=== PATIENT | female | born 1960 | race Caucasian/White ===

== ENCOUNTER → 2020-02-13 14:33 | Outpatient (CLI) | payer BC, SELFPAY ==
--- NOTE | 2020-02-13 14:49 | XR_ITS ---
PROCEDURE: XR HIP LT 2-3V W/PELVIS CLINICAL INDICATION: LT HIP PAIN COMPARISON: No exams were available for comparison FINDINGS: No fracture or dislocation. No lytic or blastic change. The left hip has an unremarkable appearance. No significant arthritic change. There are mild osteoarthritic changes the SI joint on the left. There is some increased density in the super acetabular region involving the left ilium medially raising the question of an area of sclerosis. IMPRESSION: 1. Unremarkable left hip. 2. Possible blastic area involving the lower aspect of the ilium medially on the left. CT may confirm. 3. Mild osteoarthritic change of the left SI joint Dictated by: Simba Matt MD 02/13/2020 15:41 Simba Matt MD in [place] 02/13/2020 15:41
--- NOTE | 2020-02-13 14:49 | XR_ITS ---
PROCEDURE: XR LUMBAR SPINE MIN 4V CLINICAL INDICATION: LOW BACK PAIN COMPARISON: No exams were available for comparison FINDINGS: No fracture or dislocation. No lytic or blastic change. There is normal mineralization. There is normal alignment. The disc spaces are well preserved. There are mild osteoarthritic changes of the SI joints inferiorly. There is acute angulation of the lower sacrum suggesting an old injury. Subcutaneous calcifications are present in the gluteal region consistent with injection granulomas. There is a moderate amount of retained colonic feces. Other findings:None. IMPRESSION: 1. No acute finding of the lumbar spine. 2. Osteoarthritic changes of the SI joints. 3. Acute angulation of the lower sacrum suggesting an old injury Dictated by: Simba Matt MD 02/13/2020 15:38 Simba Matt MD in [place] 02/13/2020 15:38
== END ==
PROVIDERS: PCP Nurse Practitioner Family; Visit Provider Nurse Practitioner Family
DX: M25.552 Pain in left hip (principal); M54.42 Lumbago with sciatica, left side
CPT/HCPCS: 72110; 73502

== ENCOUNTER → 2020-03-11 13:08 | Outpatient (CLI) | payer BC, SELFPAY ==
--- NOTE | 2020-03-11 13:17 | CT_ITS ---
PROCEDURE: CT HIP LT WO CON CLINICAL HISTORY: ABN X-RAY, L HIP PAIN fell 3 weeks ago abn x-ray COMPARISON: CR XR HIP LT 2-3V W/PELVIS from 02/13/2020 TECHNIQUE: Axial images obtained with sagittal and coronal reformats. All CT scans at the facility use one or more dose reduction, viz: automated exposure control, ma/kV adjustment per patient size (including targeted exams where dose is matched to indication, i.e. head), or iterative reconstruction technique. FINDINGS: There is a well-circumscribed area of sclerosis involving the inferior aspect of the ilium on the left in the super acetabular region. This measures 11 mm and is well-circumscribed. This may represent a bone island. The margins are more distinct on the CT scan than on the radiograph. There are mild osteoarthritic changes of the left hip. No acute fracture or dislocation. No lytic lesions are evident. There is generalized vascular calcification. No obvious soft tissue mass. IMPRESSION: Well-circumscribed sclerotic lesion of the left ilium in the super acetabular region which may represent a bone island. Short-term follow-up in 3-6 months may confirm stability in this patient with left hip pain. Mild osteoarthritis of the left hip Dictated by: Simba Matt MD 03/13/2020 10:24 Simba Matt MD in [place] 03/13/2020 10:24
== END ==
PROVIDERS: PCP Nurse Practitioner Family; Visit Provider Nurse Practitioner Family
DX: R93.89 Abnormal findings on diagnostic imaging of other specified body structures (principal); M25.552 Pain in left hip
CPT/HCPCS: 73700

== ENCOUNTER → 2020-05-28 12:47 | Outpatient (CLI) | payer BC, SELFPAY ==
--- NOTE | 2020-05-28 12:51 | MR_ITS ---
PROCEDURE: MR HIP LT WO CON CLINICAL INDICATION: LEFT HIP PAIN, BACK PAIN Prior injury with pain COMPARISON: CT CT HIP LT WO CON from 03/11/2020 TECHNIQUE: Routine multiplanar multi echo sequences are performed without gadolinium enhancement. FINDINGS: No fracture or dislocation. No evidence of avascular necrosis. There is a small left-sided hip joint effusion.. No significant effusion. There is a small area of slight decreased T1 and increased T2 signal involving the proximal femur just inferior to the greater trochanter. This measures approximately 11 mm and is of uncertain clinical significance. No radiographic correlate apparent. Follow-up is suggested to confirm stability. IMPRESSION: Trace left hip joint effusion. No evidence of fracture or avascular necrosis. Nonspecific 11 mm oval area decreased T1 and increased T2 signal of the left femur proximally of questionable clinical significance. Three to six-month follow-up suggested to confirm stability. Dictated by: Simba Matt MD 07/05/2020 10:09 Simba Matt MD in [place] 07/05/2020 10:09
--- NOTE | 2020-05-28 12:51 | MR_ITS ---
PROCEDURE: MR LUMBAR SPINE WO CON CLINICAL INDICATION: LEFT HIP PAIN, BACK PAIN Low back pain radiating into the left leg COMPARISON: CR XR LUMBAR SPINE MIN 4V from 02/13/2020 TECHNIQUE: Standard multiplanar multiecho sequences are performed without contrast. 3-D MIP and myelographic images are also rendered and reviewed FINDINGS: Normal alignment. L1-L2: Type 2 endplate changes. L2-L3: Unremarkable. L3-L4: Unremarkable. L4-5: There is minimal central disc protrusion with mild facet and ligamentum hypertrophy with mild bilateral lateral recess narrowing slightly greater on the right and mild bilateral foraminal narrowing. L5-S1: There is a small central disc protrusion causing mild bilateral lateral recess narrowing abutting the anteromedial aspect of both S1 nerve roots No extruded herniated disc evident. IMPRESSION: 1. L4-5: There is minimal central disc protrusion with mild facet and ligamentum hypertrophy with mild bilateral lateral recess narrowing slightly greater on the right and mild bilateral foraminal narrowing. 2. L5-S1: There is a small central disc protrusion causing mild bilateral lateral recess narrowing abutting the anteromedial aspect of both S1 nerve roots 3. No extruded herniated disc evident. Dictated by: Simba Matt MD 05/29/2020 13:04 Simba Matt MD in [place] 05/29/2020 13:04
== END ==
PROVIDERS: PCP Nurse Practitioner Family; Visit Provider Nurse Practitioner Family
DX: M25.552 Pain in left hip (principal); M54.42 Lumbago with sciatica, left side; R93.89 Abnormal findings on diagnostic imaging of other specified body structures
CPT/HCPCS: 72148; 73721; 76376

== ENCOUNTER 2022-03-12 11:45 | Inpatient (IN) | payer OTHER, SELFPAY ==
[2022-03-12] VITALS (9 sets, daily range): BP systolic 110–154; BP diastolic 59–97; PULSE 74–87; RESP 16–21; TEMP 36.4–36.8; O2SAT 97–99; BMI 27.8; BMI 29.2; BMI 22.6
--- NOTE | 2022-03-12 12:18 | EXP.UTC ---
Discharge Plan Prescriptions Prescriptions: No Action paroxetine HCl [Paxil] 40 mg tablet 40 mg PO DAILY Qty: 30 1RF trazodone 50 mg tablet See Rx Instructions PO QHS PRN (Reason: sleep) Qty: 30 0RF Rx Instructions: take 1/2 to 1 tablet PO every day at bedtime PRN; Referrals Follow up/Referrals: Abdi Kapoor MD [Primary Care Provider] - See instructions Clinical Impressions Clinical Impression: Diabetic ulcer of foot associated with type 2 diabetes mellitus, with necrosis of muscle Discharge ED Provider: Raghav Ko [facility] General Stated complaint: right foot infected, no accident Time Seen by Provider: 03/12/22 12:16 History of Present Illness Provider Complaint: She states that for over the past couple of months she has had worsening sores on her right foot. She is a diabetic. She states that this began while in [place]. She was prescribed an antifungal cream there that did not help. On her way back to [place] she was seen in [place] by a provider and started on clindamycin. She states that she has been taking that for the past 3 days but it is not helping her sores or redness of her foot. Related Data Previous Rx's Medication Instructions Recorded paroxetine HCl 40 mg tablet (Paxil) 40 mg PO DAILY #30 tabs 09/01/20 trazodone 50 mg tablet See Rx Instructions PO QHS PRN 09/01/20 sleep #30 tabs Allergies Allergy/AdvReac Type Severity Reaction Status Date / Time Sulfa (Sulfonamide Allergy Severe rash; Verified 04/13/20 13:35 Antibiotics) itchy; trouble breathing [facility] Medical History Anxiety Diabetes mellitus, type 2 Hypertension Surgical History History of cholecystectomy Social History Smoking Status: Current every day smoker alcohol intake: never substance use type: denies use current occupational status: employed Travel in the last 8 weeks: Outside the [facility] number of children: 2 ROS Obtained: Yes All systems reviewed & no additional complaints except as documented Constitutional Constitutional: Reports system reviewed and no additional complaints, except as documented, Denies chills and Denies fever(s) Eyes Eyes: Denies eye discharge ENT Ears, Nose, Mouth, and Throat: Denies dysphagia, Denies sore throat and Denies throat swelling Cardiovascular Cardiovascular: Denies chest pain and Denies dyspnea Respiratory Respiratory: Denies chest congestion, Denies cough and Denies dyspnea Gastrointestinal Gastrointestingal: Denies abdominal pain, constipation, diarrhea, dysphagia, nausea or vomiting Musculoskeletal Musculoskeletal: Denies arthralgias Integumentary/Breasts Skin/Breast: Reports as per HPI Neurologic Neurologic: Denies paresthesias Allergic/Immunologic Allergic/Immunologic: Denies throat swelling Physical Exam General General appearance: alert and in no apparent distress Head Head exam: atraumatic, normocephalic and normal inspection Eye Eye exam: Present normal appearance, PERRL and EOMI ENT ENT exam: Present normal exam, normal oropharynx, mucous membranes moist, TM's normal bilaterally and normal external ear exam Neck Neck exam: Present normal inspection, full ROM and trachea midline; Absent meningismus or lymphadenopathy Chest Chest inspection: Present normal inspection and symmetric chest wall rise; Absent tenderness Respiratory Respiratory exam: Present normal lung sounds bilaterally; Absent respiratory distress Cardiovascular Cardiovascular exam: Present regular rate and normal rhythm; Absent JVD Abdominal Exam Abdominal exam: Present soft and normal bowel sounds; Absent distention, tenderness or guarding Extremities Exam Extremities exam: Present normal inspection, full ROM and normal capillary refill; Absent calf tenderness Back Exam Back exam: Pres
--- NOTE | 2022-03-12 12:39 | XR_ITS ---
PROCEDURE INFORMATION: Exam: XR Right Foot Exam date and time: 03/12/2022 12:41 PM Age: 61 years old Clinical indication: Pain; Foot; Right; Additional info: Multiple deep foot ulcers, diabetic TECHNIQUE: Imaging protocol: Radiologic exam of the Right foot. Views: 3 or more views. COMPARISON: No relevant prior studies available. FINDINGS: Bones/joints: Generalized osteopenia. Soft tissues: Mild diffuse soft tissue swelling. Vasculature: Atherosclerotic vascular disease. IMPRESSION: No evidence to suggest osteomyelitis or acute osseous abnormality.
--- NOTE | 2022-03-12 13:53 | HMH.EDGENADL ---
Discharge Plan Disposition Patient Disposition: Admitted As Inpatient Condition: Fair Chief Complaint: Extremity Injury, Lower Prescriptions Prescriptions: No Action paroxetine HCl [Paxil] 40 mg tablet 40 mg PO DAILY Qty: 30 1RF trazodone 50 mg tablet See Rx Instructions PO QHS PRN (Reason: sleep) Qty: 30 0RF Rx Instructions: take 1/2 to 1 tablet PO every day at bedtime PRN; Referrals Follow up/Referrals: Abdi Kapoor MD [Primary Care Provider] - See instructions Clinical Impressions Clinical Impression: Diabetic ulcer of foot associated with type 2 diabetes mellitus, with necrosis of muscle, Gangrene of right foot Discharge ED Provider: Raghav Ko General Adult HPI General Chief complaint: Extremity Injury, Lower Stated complaint: right foot infected, no accident Time Seen by Provider: 03/12/22 13:40 Mode of Arrival: Ambulatory Limitations: No Limitations Description of Symptoms (Recalled from ER Triage Doc. by RN): pt sent from [facility] for eval due to several open necrotic areas to rt foot starting in june. pt is diabetic. states she was in [place] and used antifungal cream with no improvement. seen by provider in [place] and prescribed an antibiotic with no improvement. rt foot swollen, redness noted. pt denies any fever, chills, nausea, vomiting History of Present Illness HPI narrative: The patient is sent from the urgent treatment center. She is diabetic for 30 years. She began having sores on her right foot in June. She apparently was initially treated with fungal creams. Her did not become aware of any sores on her foot until November when they were in [place]. He first noticed a sore on the lateral aspect of her foot in the region of the fifth metatarsal head. She went to 3 different doctors while in [place] but continued to worsen each time. He eventually convinced her to come back to the [facility] for treatment. On the way back they stopped at an emergency department in [place]. states that the physician wanted to admit her to the hospital, but they declined, preferring instead to come back to [place]. She was started on clindamycin while in [place]. She denies fever. She does have pain in the foot, generally worse at night. She has never had previous diabetic foot ulcers. Related Data Previous Rx's Medication Instructions Recorded paroxetine HCl 40 mg tablet (Paxil) 40 mg PO DAILY #30 tabs 09/01/20 trazodone 50 mg tablet See Rx Instructions PO QHS PRN 09/01/20 sleep #30 tabs Allergies Allergy/AdvReac Type Severity Reaction Status Date / Time Sulfa (Sulfonamide Allergy Severe rash; Verified 04/13/20 13:35 Antibiotics) itchy; trouble breathing PFSH PFSH Medical History Anxiety Diabetes mellitus, type 2 Hypertension Surgical History History of cholecystectomy Social History (Updated 03/12/22 @ 13:27 by Eric Porter APRN) Smoking Status: Current every day smoker alcohol intake: never substance use type: denies use current occupational status: employed Travel in the last 8 weeks: Outside the [place] number of children: 2 ROS Obtained: Yes Systems reviewed as appropriate & no additional complaints except as documented Constitutional Constitutional: Denies fever(s) Gastrointestinal Gastrointestingal: Denies vomiting Musculoskeletal Musculoskeletal: Reports tingling Neurologic Neurologic: Reports tingling Physical Exam General General appearance: alert and in no apparent distress Head Head exam: atraumatic and normocephalic Eye Eye exam: Present normal appearance and EOMI ENT ENT exam: Present mucous membranes moist Neck Neck exam: Present normal inspection and trachea midline Chest Chest inspection: Present normal inspection and symmetric chest wall rise Respiratory Respiratory exam: Presen
--- NOTE | 2022-03-12 14:14 | EXP.PHA.CONS ---
Pharmacy Consult Date: 03/12/22 Time: 14:14 Referring provider: DR COSTA Reason for Consult:: VANCOMYCIN DOSING CONSULT Allergies Allergy/AdvReac Type Severity Reaction Status Date / Time Sulfa (Sulfonamide Allergy Severe rash; Verified 04/13/20 13:35 Antibiotics) itchy; trouble breathing Home Medications Medication Instructions Recorded Confirmed Type paroxetine HCl 40 mg tablet (Paxil) 40 mg PO DAILY #30 tabs 09/01/20 Rx trazodone 50 mg tablet See Rx Instructions PO QHS PRN 09/01/20 Rx sleep #30 tabs New Prescriptions to Start Prescriptions: Height: 1.57 m Weight: 72.575 kg Laboratory Results:: LABS PENDING Medical History: Medical History (Updated 03/12/22 @ 13:27 by Eric Porter APRN) Anxiety Diabetes mellitus, type 2 Hypertension Assessment and Plan Assessment and plan (1) Diabetic ulcer of foot associated with type 2 diabetes mellitus, with necrosis of muscle: Status: Acute Category: Medical Code(s): E11.621 - Type 2 diabetes mellitus with foot ulcer; L97.503 - Non-pressure chronic ulcer of other part of unspecified foot with necrosis of muscle Assessment and plan all Dx Assessment and Plan for all problems:: LOADING DOSE OF VANCOMYCIN = 15-20 MG/KG 15 MG/KG * 72.5 KG = 1087 MG 20 MG/KG * 72.5 KG = 1451 MG Recommendations: RECOMMEND GIVING VANCOMYCIN 1250 MG IV ONCE. FURTHER REGIMEN PENDING LABS.
[2022-03-12 14:41] LABS: Chloride 98 mmol/L (98-107); Potassium 3.9 mmoL/L (3.5-5.1); Sodium 136 mmol/L (136-145)
--- NOTE | 2022-03-12 14:43 | PC.NURSE ---
Dr addie olea
[2022-03-12 14:44] LABS: Anion Gap 17.9 mEq/L (5-15); Blood Urea Nitrogen 19 mg/dl (7-17); Carbon Dioxide 24 mmol/L (22.0-30.0); Creatinine Clearance Estimated 66 mL/min (50-200); Estimated Glomerular Filt Rate 63 ml/min (>60); GFR (African American) 77 ML/MIN (>60)
[2022-03-12 14:45] LABS: Calcium 8.5 mg/dl (8.4-10.2); Glucose 374 mg/dl (74-100)
[2022-03-12 14:46] LABS: Lactic Acid 1.7 mmol/L (0.7-2.1)
--- NOTE | 2022-03-12 14:47 | PC.NURSE ---
Obtained Covid nasal swab
[2022-03-12 14:48] LABS: Basophils # 0.1 K/mm3 (0-0.2); Basophils % 0.4 % (0.1-2.0); Eosinophils # 0.2 K/mm3 (0.0-0.4); Eosinophils % 1.3 % (0.1-12.0); Hematocrit 40.5 % (37.0-47.0); Hemoglobin 13.1 g/dL (12.2-16.2); Lymphocytes # 1.4 K/mm3 (0.7-4.5); Lymphocytes % 9.4 % (10-50); Mean Corpuscular HGB Conc 32.5 g/dL (31.8-35.4); Mean Corpuscular Hemoglobin 30.6 pg (27.0-31.2); Mean Corpuscular Volume 94.3 fl (81-99); Mean Platelet Volume 8.8 fl (7.4-10.4); Monocytes # 0.7 K/mm3 (0.1-1.0); Monocytes % 4.9 % (1.7-9.3); Neutrophils # 12.3 K/mm3 (1.8-7.8); Neutrophils % 84.1 % (37.0-80.0); Platelet Count 481 K/mm3 (142-424); Red Blood Count 4.29 M/mm3 (4.20-5.40); Red Cell Distribution Width 12.8 % (11.5-17.5); White Blood Count 14.6 K/mm3 (4.8-10.8)
--- NOTE | 2022-03-12 14:49 | PC.NURSE ---
Dr Ko speaking with Dr Hendrix
[2022-03-12 14:50] LABS: C-Reactive Protein 99.7 mg/L (0-4)
[2022-03-12 15:14] LABS: Erythrocyte Sedimentation Rate 51 mm/hr (0-30)
--- NOTE | 2022-03-12 15:23 | PC.NURSE ---
pt tolerated ambulating to restroom well and made it back to room
[2022-03-12 15:28] LABS: Coronavirus 19, PCR Not Detected (NotDetected); Influenza A, PCR Not Detected (NotDetected); Influenza B, PCR Not Detected (NotDetected)
--- NOTE | 2022-03-12 16:29 | PC.NURSE ---
report called to floor
--- NOTE | 2022-03-12 16:42 | PC.NURSE ---
pt arrived to the floor at this time
[2022-03-13] VITALS: BP 103/57; PULSE 84; RESP 16; TEMP 37.1; O2SAT 97
[2022-03-13 03:37] VITALS: BP 114/63; PULSE 78; RESP 18; TEMP 36.8; O2SAT 100
--- NOTE | 2022-03-13 04:12 | PC.NURSE ---
no acute distress noted, pt complains of pain to RLE that radiates up to thigh, neurontin, tramadol given po for pain rated 8/10 unrelieved by tylenol respiratory: lungs CTA bilaterally, 02 sats 97-100 on room air cardiac: 1-2+ edema noted to BLE, VSS GI/: wnl Neuro: alert and oriented x4 skin: gangrenous wound noted to RLE toes and right lateral side of foot; dressing in place, no drainage noted, RLE is red and painful to touch, + pedal pulse noted, + cap refill noted. fsbs 155, pt not on insulin at home, states only takes metformin
[2022-03-13 05:00] VITALS: BMI 21.6
[2022-03-13 06:23] LABS: POC Glucose,Bedside 419 (70-110)
--- NOTE | 2022-03-13 07:09 | EXP.PHA.VTE ---
[facility] Pharmacy VTE Monitoring Patient Demographics Admission date: 03/12/22 Report Date: 03/13/22 Time: 07:10 Patient Allergies Sulfa (Sulfonamide Antibiotics) Allergy (Severe, Verified 04/13/20 13:35) rash; itchy; trouble breathing Height: 1.63 m Weight: 57.351 kg Current Active Problems (Updated 03/12/22 @ 15:01 by Raghav Ko MD) Gangrene of right foot (Acute) Diabetic ulcer of foot associated with type 2 diabetes mellitus, with necrosis of muscle (Acute) VTE Risk Labs: VTE Related Lab Results Hgb 13.1 g/dL (12.2-16.2) 03/12/22 14:20 Hct 40.5 % (37.0-47.0) 03/12/22 14:20 Plt Count 481 K/mm3 (142-424) H 03/12/22 14:20 BUN 19 mg/dl (7-17) H 03/12/22 14:20 Creatinine 0.90 mg/dl (0.52-1.04) 03/12/22 14:20 Estimated Creat Clear 66 mL/min (50-200) 03/12/22 14:20 VTE Score: 1 Prophylaxis VTE Prophylaxis Ordered?: Yes Types of VTE Prophylaxis: TEDS Knee High Location of Applied Device: Bilateral Lower Extremeties
--- NOTE | 2022-03-13 07:47 | EXP.PHA.CONS ---
Pharmacy Consult Date: 03/13/22 Time: 07:47 Referring provider: DR. KELLEY Reason for Consult:: VANCOMYCIN Allergies Allergy/AdvReac Type Severity Reaction Status Date / Time Sulfa (Sulfonamide Allergy Severe rash; Verified 04/13/20 13:35 Antibiotics) itchy; trouble breathing Home Medications Medication Instructions Recorded Confirmed Type atorvastatin 20 mg tablet 20 mg PO HS Cholesterol 03/12/22 03/12/22 History clindamycin HCl 300 mg capsule 300 mg PO TID Infection 03/12/22 03/12/22 History metformin 500 mg tablet 1,000 mg PO BID Diabetes 03/12/22 03/12/22 History paroxetine HCl 40 mg tablet (Paxil) 40 mg PO DAILY Depression 03/12/22 03/12/22 History New Prescriptions to Start Prescriptions: Height: 1.63 m Weight: 57.351 kg Laboratory Results:: Laboratory Results - last 24 hr 03/12/22 14:20: WBC 14.6 H, RBC 4.29, Hgb 13.1, Hct 40.5, MCV 94.3, MCH 30.6, MCHC 32.5, RDW 12.8, Plt Count 481 H, MPV 8.8, Neut % (Auto) 84.1 H, Lymph % (Auto) 9.4 L, [place] % (Auto) 4.9, Eos % (Auto) 1.3, Baso % (Auto) 0.4, Neut # (Auto) 12.3 H, Lymph # (Auto) 1.4, [place] # (Auto) 0.7, Eos # (Auto) 0.2, Baso # (Auto) 0.1, ESR 51 H 03/12/22 14:20: C-Reactive Protein 99.7 H 03/12/22 14:20: Sodium 136, Potassium 3.9, Chloride 98, Carbon Dioxide 24, Anion Gap 17.9 H, BUN 19 H, Creatinine 0.90, Estimated Creat Clear 66, Estimated GFR 63, Est GFR ( Amer) 77, Glucose 374 H, Calcium 8.5 03/12/22 14:20: Lactate 1.7 03/12/22 14:46: SARS-CoV-2 (PCR) Not detected, Influenza A Untype (PCR) Not detected, Influenza Type B (PCR) Not detected 03/12/22 17:12: POC Glucose 419 H* Medical History: Medical History (Updated 03/12/22 @ 15:01 by Raghav Ko MD) Anxiety Diabetes mellitus, type 2 Hypertension Assessment and Plan Assessment and plan all Dx Assessment and Plan for all problems:: Objective: Patient: Floor: Age: 61 yo Serum creatinine: 0.9 mg/dL Height: 64.2 Inches Weight (kg): 54.4 Assessment: IBW (kg): 55.16 Dosing wt(kg): 54.4 Estimated Creatinine clearance (ml/min): 54.9 CRCL method: Cockcroft and Gault using ibw(default). Drug selected: Vancomycin Loading dose (mg): 0 Vd (liters): 43.5 (factor used: 0.8 L/kg) Shaun (hr-1): 0.050 Half life (hrs): 13.86 Recommended dose: 1250 mg Interval: 24 hrs Infusion time (hrs): 2.0 Predicted peak (mcg/mL): 39.1 Predicted trough (mcg/mL): 13.02 Total body weight is being used for vancomycin dosing. Recommendations: Give Vancomycin 1250 mg q 24 hrs with an expected Cpeak of 39.1 mcg/ml and an expected Ctrough of 13.02 mcg/ml. ----Vanco only - ignore for aminoglycosides----- CLvanco= 2.18 L/hr AUC 0-24 /DERICK Data: DERICK 0.5 mcg/mL: AUC/DERICK: 1146.8 DERICK 1.0 mcg/mL: AUC/DERICK: 573.4 --------- DERICK 1.5 mcg/mL: AUC/DERICK: 382.3 DERICK 2.0 mcg/mL: AUC/DERICK: 286.7
--- NOTE | 2022-03-13 07:50 | HMH.PHAINT1 ---
Pharmacy Intervention Comments: Home medication reconciliation was completed using outpatient pharmacy list and interview with patient.
[2022-03-13 08:00] VITALS: BP 110/57; PULSE 73; RESP 18; TEMP 36.6; O2SAT 94
--- NOTE | 2022-03-13 08:23 | US_ITS ---
FINAL REPORT CLINICAL HISTORY: non-healing diabetic foot ulcers, Smoker, discolored Right great toe, Cold right leg. FINDINGS: ANKLE-BRACHIAL PRESSURE INDICES Pressure indices are as follows: RIGHT LOWER EXTREMITY: Ankle-brachial pressure index: 0.7 LEFT LOWER EXTREMITY: Ankle-brachial pressure index: n/a, noncompressible medial calcinosis. Left TPI:0.49 IMPRESSION: Findings suspicious of advanced infrapopliteal disease on the left at advanced, diffuse peripheral vascular disease on the right. Reviewed, Interpreted and Dictated by River Flores MD Transcribed by Love Mathew Authenticated and [facility]
--- NOTE | 2022-03-13 08:28 | EXP.HP ---
History of Present Illness *Admission Date: 03/12/22 *Reason for visit:: Right foot pain and wound *History of present illness: Ms. Puri is a 61-year-old female patient with a history of type II diabetes mellitus on insulin, hypertension, and chronic right foot wounds who presented to [facility] emergency room for treatment with increasing pain in the right foot. Following is documentation from the ER: She is diabetic for 30 years.? She began having sores on her right foot in June.? She apparently was initially treated with fungal creams.? Her did not become aware of any sores on her foot until November when they were in [place].? He first noticed a sore on the lateral aspect of her foot in the region of the fifth metatarsal head.? She went to 3 different doctors while in [place] but continued to worsen each time.? He eventually convinced her to come back to the [facility] for treatment.? On the way back they stopped at an emergency department in [place].? states that the physician wanted to admit her to the hospital, but they declined, preferring instead to come back to [place].? She was started on clindamycin while in [place].? She denies fever.? She does have pain in the foot, generally worse at night.? She has never had previous diabetic foot ulcers. With exam in the emergency room temp was 98.2. White blood cell count was elevated at 14,600. C-reactive protein was elevated at 99.7. Blood sugar was 374. She was started on vancomycin and cefepime. She also received a dose of piperacillin. She was then admitted for further evaluation and treatment. This a.m. patient was sleeping soundly and upon awakening states she had severe pain in her right foot. She was able to walk on it to obtain list of medicines. She speaks in a broken Paragu[place] which makes it difficult to totally understand her. No family is at bedside. She states the wound has been there since June and started out as a fungus. [facility] Medical History Anxiety Diabetes mellitus, type 2 Hypertension Surgical History History of cholecystectomy Family History Diabetes Family history of hypertension Family history of hyperlipidemia Social History (Updated 03/12/22 @ 17:05 by Lopez Boogie RN) Smoking Status: Current every day smoker alcohol intake: never substance use type: denies use current occupational status: employed Travel in the last 8 weeks: Outside the continental [facility] number of children: 2 Review of Systems Constitutional Constitutional: Denies anorexia Eyes Eyes: Denies change in vision ENT Ears, Nose, Mouth, and Throat: Denies otalgia and Denies sore throat *Cardiovascular Cardiovascular: Denies chest pain and Denies dyspnea *Respiratory Respiratory: Denies cough and Denies dyspnea *Gastrointestinal Gastrointestinal: Denies abdominal pain, Denies heartburn, Denies nausea and Denies vomiting *Genitourinary Genitourinary: Denies difficulty voiding *Musculoskeletal Musculoskeletal: Reports abnormal gait (Due to pain in the right foot), Reports arthralgias (Right foot), Reports limited range of motion (Right foot) and Reports tingling Integumentary/Breasts Skin/Breast: Reports nail changes (All nails right foot), Reports lesions (black lesions on toes and outer right foot) and Reports wounds (Right foot) *Neurologic Neurologic: Reports abnormal gait (Due to pain in the right foot), Denies paresthesias and Reports tingling Meds Home Medications and Allergies Home Medications Medication Instructions Recorded Confirmed Type atorvastatin 20 mg tablet 20 mg PO HS Cholesterol 03/12/22 03/12/22 History clindamycin HCl 300 mg capsule 300 mg PO TID Infection 03/12/22 03/12/22 History metformin 500 mg tablet 1,000 mg PO BID Diabetes 03/12/22 03/12/22 History paroxe
--- NOTE | 2022-03-13 08:38 | CT_ITS ---
FINAL REPORT CLINICAL HISTORY: rigth foot non-healing diabetic ulcers, r/o osteo FINDINGS: CT RIGHT FOOT WITHOUT CONTRAST Axial CT images were performed through the right foot without contrast. Coronal and sagittal reformatted images were submitted. This study was performed with techniques to keep radiation doses as low as reasonably achievable (ALARA). Individualized dose reduction techniques using automated exposure control or adjustment of mA and/or kV according to the patient's size were employed. FINDINGS: There is no acute fracture. There is no dislocation. The joint spaces are preserved. There is no evidence of bony destruction. No gas is seen in the soft tissues. No obvious abscess. IMPRESSION: No acute process. Reviewed, Interpreted and Dictated by River Flores MD Transcribed by Love Mathew Authenticated and [facility]
[2022-03-13 11:46] LABS: POC Glucose,Bedside 202 (70-110)
--- NOTE | 2022-03-13 11:54 | EXP.ORTH.CON ---
Documented by User: Catina Grande APRN 03/13/22 13:11 History of Present Illness *Admission Date: 03/12/22 *Reason for visit:: Right foot pain and wounds *History of present illness: Ms. Puri is a 61-year-old diabetic female who presented to [facility] emergency room for treatment with increasing pain toWe will the right foot and diabetic foot ulcers. PCP consulted podiatry for right foot pain and wound care. Patient is resting in bed alert and oriented. No acute distress noted. Right foot with several wounds noted. Patient has pain 10/10 with palpation of both feet. The left foot skin is dry with no open wounds noted. Pedal pulses weakly palpable. We will Review right foot x-ray, order CHAYO and right foot CT and treat accordingly. Ok for patient to have diabetic diet today. We will keep NPO after midnight. [facility] Medical History Anxiety Diabetes mellitus, type 2 Hypertension Surgical History History of cholecystectomy Family History Diabetes Family history of hypertension Family history of hyperlipidemia Social History (Updated 03/12/22 @ 17:05 by Lopez Boogie RN) Smoking Status: Current every day smoker alcohol intake: never substance use type: denies use current occupational status: employed Travel in the last 8 weeks: Outside the continental [facility] number of children: 2 Review of Systems *Musculoskeletal Musculoskeletal: Reports abnormal gait (Due to pain in the right foot) and Reports tingling *Neurologic Neurologic: Reports abnormal gait (Due to pain in the right foot), Denies paresthesias and Reports tingling Meds Home Medications and Allergies Home Medications Medication Instructions Recorded Confirmed Type atorvastatin 20 mg tablet 20 mg PO HS Cholesterol 03/12/22 03/12/22 History clindamycin HCl 300 mg capsule 300 mg PO TID Infection 03/12/22 03/12/22 History metformin 500 mg tablet 1,000 mg PO BID Diabetes 03/12/22 03/12/22 History paroxetine HCl 40 mg tablet (Paxil) 40 mg PO DAILY Depression 03/12/22 03/12/22 History New Prescriptions to Start Prescriptions: Allergies Allergy/AdvReac Type Severity Reaction Status Date / Time Sulfa (Sulfonamide Allergy Severe rash; Verified 04/13/20 13:35 Antibiotics) itchy; trouble breathing Ortho Exam (Inpt) Vital signs and Labs for Last 24 Hours: Temp Pulse Resp BP Pulse Ox 97.8 F 73 18 110/57 L 94 L 03/13/22 08:00 03/13/22 08:00 03/13/22 08:00 03/13/22 08:00 03/13/22 08:00 Laboratory Results - last 24 hr 03/12/22 14:20: WBC 14.6 H, RBC 4.29, Hgb 13.1, Hct 40.5, MCV 94.3, MCH 30.6, MCHC 32.5, RDW 12.8, Plt Count 481 H, MPV 8.8, Neut % (Auto) 84.1 H, Lymph % (Auto) 9.4 L, Richardson % (Auto) 4.9, Eos % (Auto) 1.3, Baso % (Auto) 0.4, Neut # (Auto) 12.3 H, Lymph # (Auto) 1.4, Richardson # (Auto) 0.7, Eos # (Auto) 0.2, Baso # (Auto) 0.1, ESR 51 H 03/12/22 14:20: C-Reactive Protein 99.7 H 03/12/22 14:20: Sodium 136, Potassium 3.9, Chloride 98, Carbon Dioxide 24, Anion Gap 17.9 H, BUN 19 H, Creatinine 0.90, Estimated Creat Clear 66, Estimated GFR 63, Est GFR ( Amer) 77, Glucose 374 H, Calcium 8.5 03/12/22 14:20: Lactate 1.7 03/12/22 14:46: SARS-CoV-2 (PCR) Not detected, Influenza A Untype (PCR) Not detected, Influenza Type B (PCR) Not detected 03/12/22 17:12: POC Glucose 419 H* 03/13/22 11:38: POC Glucose 202 H I & O for Labs for Last 24 Hours: Intake & Output 03/10/22 03/11/22 03/12/22 03/13/22 23:59 23:59 23:59 23:59 Intake Total 360 / 560 200 / 200 Output Total 0 / 0 0 / 0 Balance 360 / 560 200 / 200 Weight 131 lb 9 oz 126 lb 7 oz Microbiology Reports for the Last 24 Hours: Microbiology 03/12/22 13:50 Foot,Right - Wound Gram Stain - Final Constitutional: Present no acute distress and obese (no obesity) He
--- NOTE | 2022-03-13 13:19 | EXP.CARD.CON ---
History of Present Illness History of Present Illness Consult date: 03/13/22 Requesting physician: Paula Maurice Chief complaint: right foot pain/ulcer Additional Medical History:: 1. Diabetes, treated for about 30 years 2. Tobacco use, half pack per day for 20 years 3. Right foot ulcer with gangrene, 03/12/2022 4. Hyperlipidemia 5. Questionable history of hypertension but on no long-term treatment History of present illness: 61-year-old woman admitted for right foot ulcer with gangrene for consideration of surgical treatment. Cardiology has been consulted due to evidence of peripheral arterial disease with CHAYO of 0.7 of the right leg. Patient describes several months of discomfort of the right foot along with difference in temperature of the right leg compared to the left. As noted in admission H&P's the patient did seek treatment in [place] but her encouraged her to return to [place] for further evaluation and treatment. She denies any chest pain, pressure or tightness. She has a long history of tobacco use and diabetes but denies any prior cardiac history. A third-democrat sign language teacher was used for the consultation. Admission H&P with information from ER MD: Ms. Puri is a 61-year-old female patient with a history of type II diabetes mellitus on insulin, hypertension, and chronic right foot wounds who presented to [facility] emergency room for treatment with increasing pain in the right foot.? Following is documentation from the ER: She is diabetic for 30 years.? She began having sores on her right foot in June.? She apparently was initially treated with fungal creams.? Her did not become aware of any sores on her foot until November when they were in [place].? He first noticed a sore on the lateral aspect of her foot in the region of the fifth metatarsal head.? She went to 3 different doctors while in [place] but continued to worsen each time.? He eventually convinced her to come back to the [place] for treatment.? On the way back they stopped at an emergency department in [place].? states that the physician wanted to admit her to the hospital, but they declined, preferring instead to come back to [place].? She was started on clindamycin while in [place].? She denies fever.? She does have pain in the foot, generally worse at night.? She has never had previous diabetic foot ulcers. With exam in the emergency room temp was 98.2.? White blood cell count was elevated at 14,600.? C-reactive protein was elevated at 99.7.? Blood sugar was 374.? She was started on vancomycin and cefepime.? She also received a dose of piperacillin.? She was then admitted for further evaluation and treatment. This a.m. patient was sleeping soundly and upon awakening states she had severe pain in her right foot.? She was able to walk on it to obtain list of medicines.? She speaks in a broken Nepalese which makes it difficult to totally understand her.? No family is at bedside.? She states the wound has been there since June and started out as a fungus. [facility] Medical History Anxiety Diabetes mellitus, type 2 Hypertension Surgical History History of cholecystectomy Family History Diabetes Family history of hypertension Family history of hyperlipidemia Social History (Updated 03/12/22 @ 17:05 by Lopez Boogie RN) Smoking Status: Current every day smoker alcohol intake: never substance use type: denies use current occupational status: employed Travel in the last 8 weeks: Outside the continental [facility] number of children: 2 Review of Systems Review of Systems Review of systems:: pertinent systems reviewed and negative unless documented below *Cardiovascular Cardiovascular: Denies chest pain and Denies dyspnea *Respiratory Respiratory: Jeramie
--- NOTE | 2022-03-13 14:02 | CA_ITS ---
APPROVED REPORT EXAM: Comprehensive 2D, Doppler, and color-flow Echocardiogram Aircraft Instrument Mechanic: KAMRAN Edmonds, RVS Ht: 5 ft 4 in Wt: 126lbs BSA: 1.61 BP: 110/57 mmHg Indications: Cardiac Murmur, HTN, DM, HLD, Tobacco use 2D Dimensions IVSd 1.05 cm LVEF (Visual) 55.20 % PWd 0.79 cm LA Volume 25.60 mL LVDd 4.39 cm LA Volume Index 15.90 mL/m2 (M/F) 16-34 LVDs 3.14 cm LVOT 1.65 cm (M/F) 1.5-2.5 M-Mode Dimensions LA Diam 3.44 cm (1.9-4.0) Ao Diam 2.62 cm (2.0-3.7) EPSs 0.36 cm TAPSE 1.76 (<1.7) LV Diastology E Decel Time 197.00 (160-240 msec) E/A Ratio 1.07 MED E' 11.80 (< 7 cm/sec) MED A' 11.70 cm/s E'/MED E' Ratio 8.67 (>14) LAT E' 9.20 (<10 cm/sec) LAT A' 15.40 cm/s E/LAT E' Ratio 11.12 (>14) Aortic Valve LVOT Max 99.00 (70-110 cm/s) LVOT VTI 24.58 cm AoV Peak Fox. 182.00 (50-130 cm/s) AO Peak GR. 13.30 mmHg AO Mean GR. 6.80 (<5 mmHg) AO VTI 37.35 (18-25 cm) MARIA GUADALUPE (VTI) 1.41 (2.5-4.5 cm2) Mitral Valve MV A Velocity 95.00 (40-130 cm/s) E/A Ratio 1.07 MV Decel. Time 197.00 (160-240 ms) MV Mean Gr. 2.00 (<2mmHg) MV PHT 57.00 ms Pulmonary Valve PV Peak Velocity 94.00 (50-150 cm/s) Left Ventricle Left atrium is mildly enlarged, left ventricle is normal size, mild concentric left ventricular hypertrophy, estimated ejection fraction 55% with no regional wall motion abnormality, grade 1 diastolic dysfunction seen without tissue Doppler evidence of raise left atrial pressure. Right Ventricle Right atrium and right ventricle are normal size and contractility. Aortic Valve Aortic valve is thickened and calcified without aortic stenosis or aortic insufficiency. Mitral Valve Mitral valve is grossly normal, there is trace mitral regurgitation. Tricuspid Valve Tricuspid valve grossly normal, there is trace tricuspid regurgitation, tricuspid regurgitation jet velocity is inadequate for calculation of the right ventricular systolic pressure. Pulmonic Valve Pulmonic valve is poorly visualized. Great Vessels Aortic root is normal size. Inferior vena cava is poorly visualized. Pericardium No significant pericardial effusion noted. Conclusion 1. Mildly enlarged left atrium, normal left ventricular size, mild concentric left ventricular hypertrophy, estimated ejection fraction 55% with no regional wall motion abnormality, grade 1 diastolic dysfunction seen without tissue Doppler evidence of raise left atrial pressure. 2. Trace mitral and tricuspid regurgitation. 3. Thickened and calcified aortic valve without Doppler evidence of aortic stenosis aortic insufficiency. 4. No significant pericardial effusion noted. 5. Inferior vena cava is poorly visualized. Electronically signed by : Eder Silverio MD 03/13/2022 17:32:25
[2022-03-13 16:00] VITALS: BP 126/74; PULSE 75; RESP 18; TEMP 36.7; O2SAT 99
[2022-03-13 17:18] LABS: POC Glucose,Bedside 209 (70-110)
--- NOTE | 2022-03-13 18:49 | PC.NURSE ---
PT HAS DONE WELL THIS SHIFT. NO C/O PAIN. DSG CDI TO RT FOOT. PICTURES OF FOOT NEED TO BE TAKEN WITH DSG CHANGE TOMORROW. NPO AFTER MIDNIGHT, CONSENT SIGNED FOR CATH TOMORROW. DIABETIC DIET, TOLERATING WELL. CB AND PERSONAL ITEMS WIHTIN REACH. NO QUESTIONS OR CONCERNS AT THIS TIME.
[2022-03-13 19:59] VITALS: BP 125/68; PULSE 78; RESP 16; TEMP 37.1; O2SAT 98
[2022-03-13 21:34] LABS: POC Glucose,Bedside 251 (70-110)
[2022-03-14] VITALS (19 sets, daily range): BP systolic 115–169; BP diastolic 59–88; PULSE 73–91; RESP 15–20; TEMP 36.7–37.3; O2SAT 92–99; BMI 20.2
[2022-03-14 01:26] LABS: POC Glucose,Bedside 74 (70-110)
--- NOTE | 2022-03-14 05:18 | PC.NURSE ---
pt has c/o pain in right foot this shift. was medicated prn per aug. bilat pedal puses weak- +1 strength. she is a&oX4. she ambulates to bathroom independently. she remains on RA o2 sats 98% she has expressed concern about surgery and says she does not understand what they will be doing. spot checked glucose around 0130 this am bc patient called out for a snack and seemed jittery. she stated she felt like her sugar was low. fsbs was 74 and pt was given a snack.
[2022-03-14 07:06] LABS: Chol/HDL Ratio 2.5 (1-3.5); Cholesterol 116 mg/dl (140-200); HDL Cholesterol 46 mg/dl (40-60); Triglycerides 117 mg/dl (30-150); VLDL Cholesterol 23 mg/dL (0-40)
[2022-03-14 07:23] LABS: Direct LDL Cholesterol 53.22 mg/dL (100-129)
[2022-03-14 08:11] LABS: Basophils # 0.1 K/mm3 (0-0.2); Basophils % 0.8 % (0.1-2.0); Eosinophils # 0.1 K/mm3 (0.0-0.4); Eosinophils % 0.6 % (0.1-12.0); Hematocrit 40.2 % (37.0-47.0); Hemoglobin 12.8 g/dL (12.2-16.2); Lymphocytes # 2.1 K/mm3 (0.7-4.5); Lymphocytes % 13.9 % (10-50); Mean Corpuscular HGB Conc 31.7 g/dL (31.8-35.4); Mean Corpuscular Hemoglobin 30.5 pg (27.0-31.2); Mean Corpuscular Volume 96.2 fl (81-99); Mean Platelet Volume 9.5 fl (7.4-10.4); Monocytes # 0.8 K/mm3 (0.1-1.0); Monocytes % 5.6 % (1.7-9.3); Neutrophils # 11.8 K/mm3 (1.8-7.8); Neutrophils % 79.1 % (37.0-80.0); Platelet Count 478 K/mm3 (142-424); Red Blood Count 4.18 M/mm3 (4.20-5.40); White Blood Count 14.9 K/mm3 (4.8-10.8)
--- NOTE | 2022-03-14 08:11 | EXP.PN ---
Subjective *Date: 03/14/22 *Time: 08:43 Interval history: Did not have a very good night last night. States her foot has continued to hurt.Podiatry has not yet visited.She is already eaten breakfast. CT of the right foot yesterday showed no acute process. Podiatry saw the patient yesterday with the following documentation: I did see the patient this afternoon at bedside. She was getting Echo. Discussed results of labs, ABIs, right foot xrays and CT scan.? I explained patient has cellulitis with gangrene.? Explained treatment is antibiotics.? Typically she would have debridement as part of her wound care however given the extent of the gangrene and PAD, will not do bride until she has adequate blood flow.? Explained the risks of doing debridement without better flow could worsen the gangrene which could cause further infection, vascular trauma which could ultimately lead to a toe or partial foot or even below-knee amputation. She understands if she does not smoke smoking or get better blood flow, she will likely never heal the wounds that have already been there for ~8 months. Recommend having the runoff procedure that Ernesto Sanders recommended tomorrow with Dr. Snow. Patient was concerned about cost. I did call and discuss with Suzanna in case management. Finance dept running cost for cardio procedures.? Explained the importance of having the runoff.? If patient refuses the runoff, no plans for podiatry bedside or surgical debridement. Awaiting run-off. Cardiology saw the patient yesterday with the following plan: Plan 1.? Diabetic foot ulcer of the right foot with gangrene and evidence of PAD by abnormal CHAYO.? Discussed procedure of lower extremity angiogram to evaluate for PAD and possible intervention to increase blood flow to the foot for improved healing.? Risk, benefits and procedure explained to the patient and she agrees to proceed but would like to discuss this with her regarding the cost before proceeding.? We will tentatively plan for tomorrow and hold Lovenox in the a.m. 2.? Diabetes mellitus, per PCP 3.? Tobacco use, cessation recommended 4.? Cardiac murmur on exam, will obtain echocardiogram for further evaluation and also quantification of LV function. Echo results from yesterday 03/13/2022: Conclusion 1.? Mildly enlarged left atrium, normal left ventricular size, mild concentric left ventricular hypertrophy, estimated ejection fraction 55% with no regional wall motion abnormality, grade 1 diastolic dysfunction seen without tissue Doppler evidence of raise left atrial pressure. 2.? Trace mitral and tricuspid regurgitation. 3.? Thickened and calcified aortic valve without Doppler evidence of aortic stenosis aortic insufficiency. 4.? No significant pericardial effusion noted. 5.? Inferior vena cava is poorly visualized. Exam Data for Last 24 hours Vital signs and Labs for Last 24 Hours: Temp Pulse Resp BP Pulse Ox 98.0 F 83 18 137/67 99 03/14/22 07:41 03/14/22 07:41 03/14/22 07:41 03/14/22 07:41 03/14/22 07:41 Laboratory Results - last 24 hr 03/13/22 11:38: POC Glucose 202 H 03/13/22 17:11: POC Glucose 209 H 03/13/22 21:26: POC Glucose 251 H 03/14/22 01:09: POC Glucose 74 03/14/22 06:02: Triglycerides 117, Cholesterol 116 L, LDL Cholesterol Direct 53.22 L, VLDL Cholesterol 23, HDL Cholesterol 46, Cholesterol/HDL Ratio 2.5 I & O for Last 24 hours: Intake & Output 03/11/22 03/12/22 03/13/22 03/14/22 11:59 11:59 11:59 11:59 Intake Total 560 / 560 1080 / 1080 Output Total 0 / 0 750 / 750 Balance 560 / 560 330 / 330 Weight 126 lb 7 oz 118 lb 6 oz Microbiology Reports for the Last 24 Hours: Microbiology 03/12/22 13:50 Foot,Right - Wound Gram Stain - Final 03/12/22 13:50 Foot,Right - Wound Wound Culture - Preliminary Constitutional Constitutional: no acute distress Comments: Sitting on the bedside having completed her breakfast *Routine Respiratory Exam Respiratory: Present CT
[2022-03-14 08:46] LABS: Hemoglobin A1C 13.1 % (4.0-6.0)
--- NOTE | 2022-03-14 08:53 | EXP.CARD.PN ---
Subjective Subjective Date: 03/14/22 Time: 08:53 Principal diagnosis: PAD, right foot dry gangrene Interval history: 61-year-old female sitting at bedside. Patient relates increasing pain of the right foot overnight. She has decided to proceed with lower extremity angiogram today to evaluate for PAD and treat if possible. Exam Data for Last 24 hours Vital signs and Labs for Last 24 Hours: Temp Pulse Resp BP Pulse Ox 98.0 F 83 18 137/67 99 03/14/22 07:41 03/14/22 07:41 03/14/22 07:41 03/14/22 07:41 03/14/22 07:41 Laboratory Results - last 24 hr 03/13/22 11:38: POC Glucose 202 H 03/13/22 17:11: POC Glucose 209 H 03/13/22 21:26: POC Glucose 251 H 03/14/22 01:09: POC Glucose 74 03/14/22 06:02: Triglycerides 117, Cholesterol 116 L, LDL Cholesterol Direct 53.22 L, VLDL Cholesterol 23, HDL Cholesterol 46, Cholesterol/HDL Ratio 2.5 03/14/22 06:08: WBC 14.9 H, RBC 4.18 L, Hgb 12.8, Hct 40.2, MCV 96.2, MCH 30.5, MCHC 31.7 L, RDW 13.0, Plt Count 478 H, MPV 9.5, Neut % (Auto) 79.1, Lymph % (Auto) 13.9, Calvert % (Auto) 5.6, Eos % (Auto) 0.6, Baso % (Auto) 0.8, Neut # (Auto) 11.8 H, Lymph # (Auto) 2.1, Calvert # (Auto) 0.8, Eos # (Auto) 0.1, Baso # (Auto) 0.1 03/14/22 06:08: Hemoglobin A1c 13.1 H I & O for Last 24 hours: Intake & Output 03/11/22 03/12/22 03/13/22 03/14/22 11:59 11:59 11:59 11:59 Intake Total 560 / 560 1080 / 1080 Output Total 0 / 0 750 / 750 Balance 560 / 560 330 / 330 Weight 126 lb 7 oz 118 lb 6 oz Microbiology Reports for the Last 24 Hours: Microbiology 03/12/22 13:50 Foot,Right - Wound Gram Stain - Final 03/12/22 13:50 Foot,Right - Wound Wound Culture - Preliminary Constitutional Constitutional: no acute distress *Routine Respiratory Exam Respiratory: Present CTA bilaterally *Routine Cardiovascular Exam Cardiovascular: Present RRR *Routine Extremities Exam Comments: Right foot with multiple areas of dry gangrene in the lateral aspect of the foot, fifth toe and first toe. No evidence of drainage at this time. The foot is erythematous with weak pulse noted. *Routine Neurological Exam Neurological: Present alert and oriented X3 Progress Note: A&P Assessment and plan (1) PAD (peripheral artery disease): Status: Acute (2) Encounter for wound care: Status: Acute (3) Tobacco abuse: Status: Acute (4) Diabetic foot ulcer: Status: Acute (5) Pain in right foot: Status: Acute (6) Cellulitis of right foot: Status: Acute (7) Gangrene of right foot: Status: Acute (8) Type 2 diabetes mellitus: Status: Acute Assessment and Plan Assessment and Plan for All Diagnoses:: Proceed with lower extremity angiogram of the right lower extremity today with left femoral access.
--- NOTE | 2022-03-14 09:56 | EXP.ORTH.PN ---
Subjective *Date: 03/14/22 *Time: 17:07 Interval history: Patient sitting up in bed no distress noted continues to have pain to right foot. She removed right foot wound dressing which was applied yesterday and prefers wound be left open to air. Per Dr. Maurice recommendation patient is a candidate for right foot debridement of non viable soft tissue and bone, wound debridement, possible bone biopsy, right foot gangrene, daibetic ulcers pending results of run-off. Patient agreed with treatment plan. Surgical consent obtained. Ortho Exam (Inpt) Vital signs and Labs for Last 24 Hours: Temp Pulse Resp BP Pulse Ox 98.0 F 83 18 137/67 99 03/14/22 07:41 03/14/22 07:41 03/14/22 07:41 03/14/22 07:41 03/14/22 07:41 Laboratory Results - last 24 hr 03/13/22 11:38: POC Glucose 202 H 03/13/22 17:11: POC Glucose 209 H 03/13/22 21:26: POC Glucose 251 H 03/14/22 01:09: POC Glucose 74 03/14/22 06:02: Triglycerides 117, Cholesterol 116 L, LDL Cholesterol Direct 53.22 L, VLDL Cholesterol 23, HDL Cholesterol 46, Cholesterol/HDL Ratio 2.5 03/14/22 06:08: WBC 14.9 H, RBC 4.18 L, Hgb 12.8, Hct 40.2, MCV 96.2, MCH 30.5, MCHC 31.7 L, RDW 13.0, Plt Count 478 H, MPV 9.5, Neut % (Auto) 79.1, Lymph % (Auto) 13.9, [place] % (Auto) 5.6, Eos % (Auto) 0.6, Baso % (Auto) 0.8, Neut # (Auto) 11.8 H, Lymph # (Auto) 2.1, [place] # (Auto) 0.8, Eos # (Auto) 0.1, Baso # (Auto) 0.1 03/14/22 06:08: Hemoglobin A1c 13.1 H I & O for Labs for Last 24 Hours: Intake & Output 03/11/22 03/12/22 03/13/22 03/14/22 23:59 23:59 23:59 23:59 Intake Total 360 / 560 800 / 800 480 / 480 Output Total 0 / 0 0 / 0 750 / 750 Balance 360 / 560 800 / 800 -270 / -270 Weight 131 lb 9 oz 126 lb 7 oz 118 lb 6 oz Microbiology Reports for the Last 24 Hours: Microbiology 03/12/22 13:50 Foot,Right - Wound Gram Stain - Final 03/12/22 13:50 Foot,Right - Wound Wound Culture - Preliminary Constitutional: Present no acute distress Head: Present normocephalic Neck: Present normal inspection and trachea midline Respiratory: Present normal respiratory effort and able to speak in complete sentences Cardiac: Present Regular Rate and pedal pulses present GI: Present other (no obesity) Rectal (female): Present deferred (female): Present deferred Extremities: Present tenderness (right foot), normal capillary refill, edema (right foot) and calf tenderness (no calf tenderness) Skin: Present wounds (right foot) Neuro: Present oriented x 3 and moves all extremities Ankle: right: swelling, right: tenderness and right: pain with active ROM Feet/Toes: right: erythema, right: swelling, right: tenderness, right: wound and right: pain with active ROM Feet w/LR Ind Top: 1. Right hallux plantar and medial wound with 100% black eschar, 3x2x0.0cm. Right 5th toe distal black eschar, several wounds noted to right lateral foot, wound beds with black eschar noted. Pain 10/10 with palpation. Wound: right 5th toe: 2x1.5x0.0cm, 100% black eschar. Right 5th metatarsal: 3x3x0.1cm, 100% black eschar. Right lateral cax3x0.0cm, 100% black eschar. All dry gangrene, unstageable. Dry skin noted to left foot, pain with palpation but no open wounds noted. Assessment and Plan *Assessment and plan (1) PAD (peripheral artery disease): Status: Acute Category: Medical Code(s): I73.9 - Peripheral vascular disease, unspecified (2) Encounter for wound care: Status: Acute Category: Medical Code(s): Z51.89 - Encounter for other specified aftercare (3) Dystrophia unguium: Status: Acute Category: Medical Code(s): L60.3 - Nail dystrophy (4) Tobacco abuse: Status: Acute Category: Medical Code(s): Z72.0 - Tobacco use (5) Keratosis: Status: Acute Category: Medical Code(s): L57.0 - Actinic keratosis (6) Diabetic foot ulcer: Status: Acute Qualifiers: Diabetes mellitus type: type 2 Diabetic foot
--- NOTE | 2022-03-14 12:55 | SUR.PHASEII ---
lab at bedside to obtain labs for Heparin Drip.
[2022-03-14 13:35] LABS: POC Glucose,Bedside 180 (70-110)
[2022-03-14 13:38] LABS: INR 1.02 (0.9-1.1)
[2022-03-14 13:41] LABS: Activated Partial Thrombo Time 196.7 seconds (22.8-30.6)
--- NOTE | 2022-03-14 13:42 | PC.NURSE ---
Beau in pharmacy notified of ptt 196.7. New blood draw orders to be done per Beau. No new heparin rate as Beau stated blood was drawn after patient received boluses of blood thinners.
--- NOTE | 2022-03-14 14:11 | IR_ITS ---
APPROVED REPORT Patient Location: Inpatient PROCEDURES Left femoral arterial access Catheter placed on the right common iliac artery Right common iliac artery antegrade angiogram with unilateral runoff to the right foot Catheter placement in the right superficial femoral artery Right superficial femoral artery selective angiogram Angioplasty followed by self-expanding bare-metal stent deployment to the right popliteal artery INDICATION Allison claudication class , Acute leg ischemia with gangrenous right foot, Occlusion of the right popliteal artery Informed consent was obtained prior to the procedure. COMPLICATIONS NONE Estimated Blood Loss: LESS THAN 10 ML TECHNIQUE 1% lidocaine used anesthetize left groin the left femoral artery was accessed via the center technique and a 5 Niuean sheath was placed in the femoral artery. 5 Niuean rim catheter was advanced to the distal abdominal aorta and used to cannulate the right common iliac artery. Angiography was performed with unilateral runoff. Following this an advantage wire was placed into the right superficial femoral artery and the 5 Niuean sheath and rim catheter were removed and exchanged for a 6 Niuean destination sheath. Therapeutic heparin was administered giving a therapeutic ACT. The advantage wire was used to push through the occlusion of the right superficial femoral artery and right popliteal artery. A 4 mm balloon was used to predilate the stenosis. Following this a 5 mm x 80 mm self-expanding stent was deployed in the right popliteal artery. A 5 mm x 60 mm balloon was then deployed at 12 [place] up and down the stent post dilating. Excellent angiographic results were obtained with wide inline flow and patency of the anterior tibialis artery with reconstituted flow of the posterior tibialis artery and peroneal artery into the right foot. At the end the procedure the apparatus was removed the groin was reprepped closure change sheath was removed and hemostasis was achieved using Angio-Seal patient was transferred the postop putting in stable condition ANGIOGRAPHIC RESULTS Right common iliac artery is patent as is the internal and external iliac artery Right common femoral artery is patent Right profunda femoris artery is patent Right superficial femoral artery has mild atheromatous plaque and is then occluded at the right popliteal artery. 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 Antiplatelet therapy 2. Supportive care 3. Anticipate ischemic neuropathic pain therefore provide analgesics 4. Immediate avoidance of tobacco products 5. LDL less than 55 to be achieved with high intensity statin 6. Wound care per foot and ankle surgery Electronically signed by : Anival Snow MD 03/16/2022 13:51:01
[2022-03-14 15:04] LABS: CATHL Activated Clotting Time 222 SEC (74-125)
--- NOTE | 2022-03-14 15:46 | HMH.PHAHEP ---
[facility] Pharmacy Heparin Dosing Demographic Data Admission date:: 03/14/22 Date: 03/14/22 Time: 15:46 Allergies Allergy/AdvReac Type Severity Reaction Status Date / Time Sulfa (Sulfonamide Allergy Severe rash; Verified 04/13/20 13:35 Antibiotics) itchy; trouble breathing Height: 1.63 m Weight: 53.69 kg Indication Medication therapy:: Heparin Current Active Problems (Updated 03/13/22 @ 14:56 by Paula Maurice DPM) PAD (peripheral artery disease) (Acute) Encounter for wound care (Acute) Dystrophia unguium (Acute) Tobacco abuse (Acute) Keratosis (Acute) Diabetic foot ulcer (Acute) Decreased pedal pulses (Acute) Pain in right foot (Acute) Cellulitis of right foot (Acute) Hypertension (Acute) Type 2 diabetes mellitus (Acute) Gangrene of right foot (Acute) Diabetic ulcer of foot associated with type 2 diabetes mellitus, with necrosis of muscle (Acute) CVA?: No Bleeding problem?: No Kidney disease?: No [place]?: No Desired PTT range:: Other Comments:: PTT 50-75 Labs Anticoagulation Lab Results:: 03/14/22 06:08 Hgb 12.8 Hct 40.2 Plt Count 478 H Monitoring Dose Monitor 1: Date: 03/14/22 Time: 12:45 PTT Result:: 196.7 Infusion Rate:: 1200 UNITS/HR (24 ML/HR) PATIENT RECEIVED HEPARIN 8000 UNITS AND HEPARIN 3000 UNITS IN CATHLAB AT 1201 AND 1216, RESPECTIVELY. IV HEPARIN DRIP STARTED AT 1247. Dose Monitor 2: Date: 03/14/22 Time: 15:00 PTT Result:: 147.2 Infusion Rate:: 1050 UNITS/HR (21 ML/HR) Comment:: RECHECK IN 2 HRS Dose Monitor 3: Date: 03/14/22 Time: 17:00 PTT Result:: 57.9 Infusion Rate:: 1050 UNITS/HR (21 ML/HR) Dose Monitor 4: Date: 03/15/22 Time: 02:00 PTT Result:: 41.0 Infusion Rate:: 1150 UNITS/HR (23 ML/HR) 3000 UNIT BOLUS Dose Monitor 5: Date: 03/15/22 Time: 08:00 PTT Result:: 66.5 Infusion Rate:: 1150 UNITS/HR (23 ML/HR) Comment:: HEPARIN DRIP STOPPED AT 0851 PER River GUZMAN. Core Measures Is INR > or = 2 at discharge?: No Most Recent Labs:: Laboratory Results - last 24 hr 03/13/22 17:11: POC Glucose 209 H 03/13/22 21:26: POC Glucose 251 H 03/14/22 01:09: POC Glucose 74 03/14/22 06:02: Triglycerides 117, Cholesterol 116 L, LDL Cholesterol Direct 53.22 L, VLDL Cholesterol 23, HDL Cholesterol 46, Cholesterol/HDL Ratio 2.5 03/14/22 06:08: WBC 14.9 H, RBC 4.18 L, Hgb 12.8, Hct 40.2, MCV 96.2, MCH 30.5, MCHC 31.7 L, RDW 13.0, Plt Count 478 H, MPV 9.5, Neut % (Auto) 79.1, Lymph % (Auto) 13.9, [place] % (Auto) 5.6, Eos % (Auto) 0.6, Baso % (Auto) 0.8, Neut # (Auto) 11.8 H, Lymph # (Auto) 2.1, [place] # (Auto) 0.8, Eos # (Auto) 0.1, Baso # (Auto) 0.1 03/14/22 06:08: Hemoglobin A1c 13.1 H 03/14/22 12:09: Activated Clotting Time 222 H* 03/14/22 13:00: PT 11.0, INR 1.02, APTT 196.7 H* 03/14/22 13:24: POC Glucose 180 H If INR was < than 2.0 why was therapy stopped?: YES Were Heparin and Warfarin started on the same day?: No If not, why?: STOPPED HEPARIN DRIP. PATIENT CURRENTLY TAKING PLAVIX AND ASPIRIN.
[2022-03-14 15:52] LABS: PTT Heparin (inpatient only) 147.2 Seconds (23.6-34.0)
[2022-03-14 17:02] LABS: POC Glucose,Bedside 197 (70-110)
[2022-03-14 18:11] LABS: PTT Heparin (inpatient only) 57.9 Seconds (23.6-34.0)
--- NOTE | 2022-03-14 18:50 | PC.NURSE ---
Nightwatch paged, ptt is 57.9. no new orders for heparin drip, rate to remain 21 ml/hr. Order to recheck blood work in 6 hours to be ordered by pharmacist
--- NOTE | 2022-03-14 19:37 | PC.WOUNDNOTE ---
right side of right foot
--- NOTE | 2022-03-14 19:37 | PC.WOUNDNOTE ---
top of right foot
--- NOTE | 2022-03-14 19:38 | PC.WOUNDNOTE ---
left side of right foot
--- NOTE | 2022-03-14 19:38 | PC.WOUNDNOTE ---
bottom of foot, right foot
--- NOTE | 2022-03-14 19:39 | PC.NURSE ---
Left groin site slightly puffy but soft and no hematoma present. VS stable and patient on heparin drip. New iv on right hand obtained after iv on right forearm was pulled out. Patient did not complain of pain.
[2022-03-14 20:25] LABS: POC Glucose,Bedside 370 (70-110)
[2022-03-14 20:25] LABS: POC Glucose,Bedside 295 (70-110)
[2022-03-15] VITALS (7 sets, daily range): BP systolic 102–120; BP diastolic 53–74; PULSE 73–89; RESP 16–19; TEMP 36.4–37.1; O2SAT 95–99; BMI 20.5
--- NOTE | 2022-03-15 03:56 | PC.NURSE ---
night watch notified of aPTT result of 41, instructed to increase drip to 1150units/hr and give 3000unit bolus, both completed
[2022-03-15 05:57] LABS: POC Glucose,Bedside 225 (70-110)
[2022-03-15 06:48] LABS: MANUAL DIFFERENTIAL MANUAL DIFFERENTIAL (MANUAL DIFF)
[2022-03-15 06:53] LABS: Basophils # 0.1 K/mm3 (0-0.2); Basophils % 0.6 % (0.1-2.0); Eosinophils # 0.2 K/mm3 (0.0-0.4); Eosinophils % 1.5 % (0.1-12.0); Hematocrit 35.1 % (37.0-47.0); Hemoglobin 11.4 g/dL (12.2-16.2); Lymphocytes # 2.4 K/mm3 (0.7-4.5); Mean Corpuscular HGB Conc 32.4 g/dL (31.8-35.4); Mean Corpuscular Hemoglobin 30.8 pg (27.0-31.2); Monocytes # 0.5 K/mm3 (0.1-1.0); Neutrophils # 9.4 K/mm3 (1.8-7.8); Neutrophils % 74.9 % (37.0-80.0); Platelet Count 409 K/mm3 (142-424); White Blood Count 12.6 K/mm3 (4.8-10.8)
[2022-03-15 06:59] LABS: Anion Gap 15.1 mEq/L (5-15); Blood Urea Nitrogen 19 mg/dl (7-17); Calcium 8.3 mg/dl (8.4-10.2); Carbon Dioxide 25 mmol/L (22.0-30.0); Chloride 103 mmol/L (98-107); Creatinine Clearance Estimated 50 mL/min (50-200); Estimated Glomerular Filt Rate 85 ml/min (>60); GFR (African American) 102 ML/MIN (>60); Glucose 209 mg/dl (74-100); Potassium 4.1 mmoL/L (3.5-5.1); Sodium 139 mmol/L (136-145)
[2022-03-15 07:04] LABS: C-Reactive Protein 90.1 mg/L (0-4)
[2022-03-15 07:33] LABS: Erythrocyte Sedimentation Rate 106 mm/hr (0-30)
[2022-03-15 08:04] LABS: Eosinophils % 3 % (0-3); Lymphocytes % 20 % (10-50); Monocytes % 3 % (2-9); Neutrophils % 74 % (42-76); Platelet Estimate Slight Increase; RBC Morphology Normal; Total Cells Counted 100
--- NOTE | 2022-03-15 08:21 | EXP.ACUTE.PN ---
Subjective *Date: 03/15/22 *Time: 08:21 Interval history: Patient's nurse states she received a stent to the right lower extremity yesterday. She is awaiting a podiatry consult today. She states she can feel more in the right foot and has had more pain. Medical Exam Vital signs and Labs for Last 24 Hours: Temp Pulse Resp BP Pulse Ox 98.1 F 77 17 120/56 L 98 03/15/22 08:00 03/15/22 08:00 03/15/22 08:00 03/15/22 08:00 03/15/22 08:00 Laboratory Results - last 24 hr 03/14/22 05:40: POC Glucose 295 H 03/14/22 06:08: Hemoglobin A1c 13.1 H 03/14/22 12:09: Activated Clotting Time 222 H* 03/14/22 13:00: PT 11.0, INR 1.02, APTT 196.7 H* 03/14/22 13:24: POC Glucose 180 H 03/14/22 15:05: APTT 147.2 H* 03/14/22 16:39: POC Glucose 197 H 03/14/22 17:52: APTT 57.9 H* 03/14/22 20:18: POC Glucose 370 H* 03/15/22 02:10: APTT 41.0 H 03/15/22 05:35: POC Glucose 225 H 03/15/22 06:40: WBC 12.6 H, RBC 3.70 L, Hgb 11.4 L, Hct 35.1 L, MCV 95.0, MCH 30.8, MCHC 32.4, RDW 13.0, Plt Count 409, MPV 8.0, Neut % (Auto) 74.9, Lymph % (Auto) 19.0, [place] % (Auto) 4.0, Eos % (Auto) 1.5, Baso % (Auto) 0.6, Neut # (Auto) 9.4 H, Lymph # (Auto) 2.4, [place] # (Auto) 0.5, Eos # (Auto) 0.2, Baso # (Auto) 0.1, Total Counted 100, Neutrophils % (Manual) 74, Lymphocytes % (Manual) 20, Monocytes % (Manual) 3, Eosinophils % (Manual) 3, Platelet Estimate Slight increase, RBC Morphology Normal 03/15/22 06:40: Sodium 139, Potassium 4.1, Chloride 103, Carbon Dioxide 25, Anion Gap 15.1 H, BUN 19 H, Creatinine 0.70 D, Estimated Creat Clear 50, Estimated GFR 85, Est GFR ( Amer) 102 D, Glucose 209 H, Calcium 8.3 L, C-Reactive Protein 90.1 H 03/15/22 06:40: ESR 106 H I & O for Labs for Last 24 Hours: Intake & Output 03/12/22 03/13/22 03/14/22 03/15/22 11:59 11:59 11:59 11:59 Intake Total 560 / 560 1080 / 1080 1135 / 1135 Output Total 0 / 0 750 / 750 2400 / 2400 Balance 560 / 560 330 / 330 -1265 / -1265 Weight 126 lb 7 oz 118 lb 6 oz 120 lb 7 oz Microbiology Reports for the Last 24 Hours: Microbiology 03/12/22 14:20 Blood Blood Culture - Preliminary NO GROWTH AFTER 48 HOURS 03/12/22 14:20 Blood Blood Culture - Preliminary NO GROWTH AFTER 48 HOURS 03/12/22 13:50 Foot,Right - Wound Gram Stain - Final 03/12/22 13:50 Foot,Right - Wound Wound Culture - Preliminary Constitutional: Present no acute distress Respiratory: Present CTA bilaterally Cardiac: Present Reg Rate and Rhythm GI: Present soft; Absent distention or tenderness Skin: Present erythema (Right foot still with erythema to the mid jenkins, right toe was black as is right fifth digit, there are also some necrotic areas along the lateral side of the foot, the entire foot is tender) Assessment and Plan *Assessment and plan (1) Diabetic ulcer of foot associated with type 2 diabetes mellitus, with necrosis of muscle: Status: Acute Category: Medical Code(s): E11.621 - Type 2 diabetes mellitus with foot ulcer; L97.503 - Non-pressure chronic ulcer of other part of unspecified foot with necrosis of muscle (2) Gangrene of right foot: Status: Acute Category: Medical Code(s): I96 - Gangrene, not elsewhere classified (3) Cellulitis of right foot: Status: Acute Category: Medical Code(s): L03.115 - Cellulitis of right lower limb (4) Pain in right foot: Status: Acute Category: Medical Code(s): M79.671 - Pain in right foot (5) PAD (peripheral artery disease): Status: Acute Category: Medical Code(s): I73.9 - Peripheral vascular disease, unspecified (6) Dystrophia unguium: Status: Acute Category: Medical Code(s): L60.3 - Nail dystrophy (7) Tobacco abuse: Status: Acute Category: Medical Code(s): Z72.0 - Tobacco use (8) Type 2 diabetes mellitus: Status: Acute Category: Medical Code(s
--- NOTE | 2022-03-15 08:28 | EXP.ORTH.PN ---
Subjective *Date: 03/15/22 *Time: 15:16 Interval history: Patient resting comfortably in bed without dressing. Reports she has new tingling sensations to the right lower extremity. Reports pain is somewhat better. Today surgery canceled, resume diabetic diet and ok to discharge home from podiatry stand point. Patient to f/u with podiatry in 1-2 week after discharge. Right foot wounds painted with betadine. Ortho Exam (Inpt) Vital signs and Labs for Last 24 Hours: Temp Pulse Resp BP Pulse Ox 98.1 F 77 17 120/56 L 98 03/15/22 08:00 03/15/22 08:00 03/15/22 08:00 03/15/22 08:00 03/15/22 08:00 Laboratory Results - last 24 hr 03/14/22 05:40: POC Glucose 295 H 03/14/22 06:08: Hemoglobin A1c 13.1 H 03/14/22 12:09: Activated Clotting Time 222 H* 03/14/22 13:00: PT 11.0, INR 1.02, APTT 196.7 H* 03/14/22 13:24: POC Glucose 180 H 03/14/22 15:05: APTT 147.2 H* 03/14/22 16:39: POC Glucose 197 H 03/14/22 17:52: APTT 57.9 H* 03/14/22 20:18: POC Glucose 370 H* 03/15/22 02:10: APTT 41.0 H 03/15/22 05:35: POC Glucose 225 H 03/15/22 06:40: WBC 12.6 H, RBC 3.70 L, Hgb 11.4 L, Hct 35.1 L, MCV 95.0, MCH 30.8, MCHC 32.4, RDW 13.0, Plt Count 409, MPV 8.0, Neut % (Auto) 74.9, Lymph % (Auto) 19.0, [place] % (Auto) 4.0, Eos % (Auto) 1.5, Baso % (Auto) 0.6, Neut # (Auto) 9.4 H, Lymph # (Auto) 2.4, [place] # (Auto) 0.5, Eos # (Auto) 0.2, Baso # (Auto) 0.1, Total Counted 100, Neutrophils % (Manual) 74, Lymphocytes % (Manual) 20, Monocytes % (Manual) 3, Eosinophils % (Manual) 3, Platelet Estimate Slight increase, RBC Morphology Normal 03/15/22 06:40: Sodium 139, Potassium 4.1, Chloride 103, Carbon Dioxide 25, Anion Gap 15.1 H, BUN 19 H, Creatinine 0.70 D, Estimated Creat Clear 50, Estimated GFR 85, Est GFR ( Amer) 102 D, Glucose 209 H, Calcium 8.3 L, C-Reactive Protein 90.1 H 03/15/22 06:40: ESR 106 H I & O for Labs for Last 24 Hours: Intake & Output 03/12/22 03/13/22 03/14/22 03/15/22 23:59 23:59 23:59 23:59 Intake Total 360 / 560 800 / 800 1200 / 1200 415 / 415 Output Total 0 / 0 0 / 0 3150 / 3150 Balance 360 / 560 800 / 800 -1950 / -1950 415 / 415 Weight 131 lb 9 oz 126 lb 7 oz 118 lb 5.859 oz 120 lb 7 oz Microbiology Reports for the Last 24 Hours: Microbiology 03/12/22 13:50 Foot,Right - Wound Gram Stain - Final 03/12/22 13:50 Foot,Right - Wound Wound Culture - Preliminary Gram Positive Cocci 03/12/22 14:20 Blood Blood Culture - Preliminary NO GROWTH AFTER 48 HOURS 03/12/22 14:20 Blood Blood Culture - Preliminary NO GROWTH AFTER 48 HOURS Constitutional: Present no acute distress Head: Present normocephalic Neck: Present normal inspection and trachea midline Respiratory: Present normal respiratory effort and able to speak in complete sentences Cardiac: Present Regular Rate and pedal pulses present GI: Present other (no obesity) Rectal (female): Present deferred (female): Present deferred Extremities: Present tenderness (right foot), normal capillary refill, edema (right foot) and calf tenderness (no calf tenderness) Skin: Present wounds (right foot) Neuro: Present oriented x 3 and moves all extremities Ankle: right: swelling, right: tenderness and right: pain with active ROM Feet/Toes: right: erythema, right: swelling, right: tenderness, right: wound and right: pain with active ROM Feet w/LR Ind Top: 1. Right hallux plantar and medial wound with 100% black eschar, 3x2x0.0cm. Right 5th toe distal black eschar, several wounds noted to right lateral foot, wound beds with black eschar noted. Pain 10/10 with palpation. Wound: right 5th toe: 2x1.5x0.0cm, 100% black eschar. Right 5th metatarsal: 3x3x0.1cm, 100% black eschar. Right lateral cax3x0.0cm, 100% black eschar. All dry gangrene, unstageable. Dry skin noted to left foot, pain with palpation but no open wounds noted. Assessment and Plan *Assessment and plan (1) PAD (p
[2022-03-15 08:44] LABS: PTT Heparin (inpatient only) 66.5 Seconds (23.6-34.0)
--- NOTE | 2022-03-15 10:13 | CT_ITS ---
FINAL REPORT CLINICAL HISTORY: LLE cool to touch after angioseal of left femoral FINDINGS: Thin section axial CT images of the abdomen, pelvis and lower extremities were obtained with contrast. Multiplanar reformatted images were also obtained and reviewed. ABDOMEN AND PELVIS: Mild diffuse plaque disease without dissection or aneurysm. Iliac vessels widely patent. Mesenteric and renal arteries widely patent. RIGHT LOWER EXTREMITY: Mild diffuse plaque disease of the femoral popliteal vessels. Stented distal SFA and popliteal are widely patent. Mild stenosis of the mid popliteal. Three-vessel runoff to the calf. Significant opacification symmetrically of the right lower extremity venous structures which could be due to AV fistula or hyperemic state. LEFT LOWER EXTREMITY: Focal occlusion of the proximal SFA, favor acute. Common femoral artery widely patent. Significant proximal SFA stenosis beyond the occlusion of approximately 70%. Filling defects within the main profundal branches suggesting thromboembolic disease. No significant stenosis of the mid and distal SFA. Mild stenosis of the mid popliteal artery, approximately 20%. Three-vessel runoff of the calf maintained. OTHER FINDINGS: Solid abdominal organs unremarkable. Moderate fecal impaction. No retroperitoneal hematoma. Distended bladder opacified with contrast from prior exam. Uterus unremarkable. No pelvic hematoma. [id number] infiltrative hemorrhage of the left upper thigh. IMPRESSION: Focal short segment occlusion of the proximal left SFA suspected to be acute with tandem proximal left SFA stenosis of approximately 70%. Suspect left profundal thromboembolic disease. Reviewed, Interpreted and Dictated by River Flores MD Transcribed by Manny Rainey Authenticated and [facility]
--- NOTE | 2022-03-15 10:13 | EXP.ORTH.PN ---
Subjective *Date: 03/16/22 *Time: 09:31 Ortho Exam (Inpt) Vital signs and Labs for Last 24 Hours: Temp Pulse Resp BP Pulse Ox 98.1 F 77 17 120/56 L 98 03/15/22 08:00 03/15/22 08:00 03/15/22 08:00 03/15/22 08:00 03/15/22 08:00 Laboratory Results - last 24 hr 03/14/22 05:40: POC Glucose 295 H 03/14/22 12:09: Activated Clotting Time 222 H* 03/14/22 13:00: PT 11.0, INR 1.02, APTT 196.7 H* 03/14/22 13:24: POC Glucose 180 H 03/14/22 15:05: APTT 147.2 H* 03/14/22 16:39: POC Glucose 197 H 03/14/22 17:52: APTT 57.9 H* 03/14/22 20:18: POC Glucose 370 H* 03/15/22 02:10: APTT 41.0 H 03/15/22 05:35: POC Glucose 225 H 03/15/22 06:40: WBC 12.6 H, RBC 3.70 L, Hgb 11.4 L, Hct 35.1 L, MCV 95.0, MCH 30.8, MCHC 32.4, RDW 13.0, Plt Count 409, MPV 8.0, Neut % (Auto) 74.9, Lymph % (Auto) 19.0, [place] % (Auto) 4.0, Eos % (Auto) 1.5, Baso % (Auto) 0.6, Neut # (Auto) 9.4 H, Lymph # (Auto) 2.4, [place] # (Auto) 0.5, Eos # (Auto) 0.2, Baso # (Auto) 0.1, Total Counted 100, Neutrophils % (Manual) 74, Lymphocytes % (Manual) 20, Monocytes % (Manual) 3, Eosinophils % (Manual) 3, Platelet Estimate Slight increase, RBC Morphology Normal 03/15/22 06:40: Sodium 139, Potassium 4.1, Chloride 103, Carbon Dioxide 25, Anion Gap 15.1 H, BUN 19 H, Creatinine 0.70 D, Estimated Creat Clear 50, Estimated GFR 85, Est GFR ( Amer) 102 D, Glucose 209 H, Calcium 8.3 L, C-Reactive Protein 90.1 H 03/15/22 06:40: ESR 106 H 03/15/22 08:25: APTT 66.5 H* I & O for Labs for Last 24 Hours: Intake & Output 03/12/22 03/13/22 03/14/22 03/15/22 23:59 23:59 23:59 23:59 Intake Total 360 / 560 800 / 800 1200 / 1200 415 / 415 Output Total 0 / 0 0 / 0 3150 / 3150 275 / 275 Balance 360 / 560 800 / 800 -1950 / -1950 140 / 140 Weight 131 lb 9 oz 126 lb 7 oz 118 lb 5.859 oz 120 lb 7 oz Microbiology Reports for the Last 24 Hours: Microbiology 03/12/22 13:50 Foot,Right - Wound Gram Stain - Final 03/12/22 13:50 Foot,Right - Wound Wound Culture - Preliminary Gram Positive Cocci 03/12/22 14:20 Blood Blood Culture - Preliminary NO GROWTH AFTER 48 HOURS 03/12/22 14:20 Blood Blood Culture - Preliminary NO GROWTH AFTER 48 HOURS Constitutional: Present no acute distress Head: Present normocephalic Neck: Present normal inspection and trachea midline Respiratory: Present normal respiratory effort and able to speak in complete sentences Cardiac: Present Regular Rate and pedal pulses present GI: Present other (no obesity) Rectal (female): Present deferred (female): Present deferred Extremities: Present tenderness (right foot), normal capillary refill (sluggish right foot), edema (right foot) and calf tenderness (no calf tenderness) Skin: Present erythema (right foot) and wounds (right foot) Neuro: Present oriented x 3 and moves all extremities Ankle: right: erythema, right: swelling and right: tenderness Feet/Toes: right: erythema, right: swelling, right: tenderness and right: wound Feet w/LR Ind Top: 1. 1. Right hallux plantar and medial wound with 100% black eschar, 3x2x0.0cm. Right 5th toe distal black eschar, several wounds noted to right lateral foot, wound beds with black eschar noted. Pain 10/10 with palpation. Wound: right 5th toe: 2x1.5x0.0cm, 100% black eschar. Right 5th metatarsal: 3x3x0.1cm, 100% black eschar. Right lateral cax3x0.0cm, 100% black eschar. All dry gangrene, unstageable. Dry skin noted to left foot, pain with palpation but no open wounds noted. Assessment and Plan *Assessment and plan (1) PAD (peripheral artery disease): Status: Acute Category: Medical Code(s): I73.9 - Peripheral vascular disease, unspecified (2) Encounter for wound care: Status: Acute Category: Medical Code(s): Z51.89 - Encounter for other specified aftercare (3) Dystrophia unguium: Status: Acute Category: Medical Code
--- NOTE | 2022-03-15 10:18 | EXP.CARD.PN ---
Subjective Subjective Date: 03/15/22 Time: 10:18 Principal diagnosis: PAD, right foot dry gangrene Interval history: 61-year-old female sitting at bedside eating breakfast in no acute distress. Patient relates some discomfort of the right foot which is expected. Right foot is warm with some pitting edema with faint palpable pulses. Patient complains of weakness of the left lower extremity and the feeling of unsteadiness when trying to ambulate on it. The left lower extremity is cooler than the right and cooler than yesterday with faint pulses noted. Discussed this with Dr. Snow who recommends obtaining a CT angiogram of the left groin area to assess for any complications from the Angio-Seal device with a runoff of the left lower extremity to assess for any possible cause for the change in temperature from yesterday Exam Data for Last 24 hours Vital signs and Labs for Last 24 Hours: Temp Pulse Resp BP Pulse Ox 98.1 F 77 17 120/56 L 98 03/15/22 08:00 03/15/22 08:00 03/15/22 08:00 03/15/22 08:00 03/15/22 08:00 Laboratory Results - last 24 hr 03/14/22 05:40: POC Glucose 295 H 03/14/22 12:09: Activated Clotting Time 222 H* 03/14/22 13:00: PT 11.0, INR 1.02, APTT 196.7 H* 03/14/22 13:24: POC Glucose 180 H 03/14/22 15:05: APTT 147.2 H* 03/14/22 16:39: POC Glucose 197 H 03/14/22 17:52: APTT 57.9 H* 03/14/22 20:18: POC Glucose 370 H* 03/15/22 02:10: APTT 41.0 H 03/15/22 05:35: POC Glucose 225 H 03/15/22 06:40: WBC 12.6 H, RBC 3.70 L, Hgb 11.4 L, Hct 35.1 L, MCV 95.0, MCH 30.8, MCHC 32.4, RDW 13.0, Plt Count 409, MPV 8.0, Neut % (Auto) 74.9, Lymph % (Auto) 19.0, [place] % (Auto) 4.0, Eos % (Auto) 1.5, Baso % (Auto) 0.6, Neut # (Auto) 9.4 H, Lymph # (Auto) 2.4, [place] # (Auto) 0.5, Eos # (Auto) 0.2, Baso # (Auto) 0.1, Total Counted 100, Neutrophils % (Manual) 74, Lymphocytes % (Manual) 20, Monocytes % (Manual) 3, Eosinophils % (Manual) 3, Platelet Estimate Slight increase, RBC Morphology Normal 03/15/22 06:40: Sodium 139, Potassium 4.1, Chloride 103, Carbon Dioxide 25, Anion Gap 15.1 H, BUN 19 H, Creatinine 0.70 D, Estimated Creat Clear 50, Estimated GFR 85, Est GFR ( Amer) 102 D, Glucose 209 H, Calcium 8.3 L, C-Reactive Protein 90.1 H 03/15/22 06:40: ESR 106 H 03/15/22 08:25: APTT 66.5 H* I & O for Last 24 hours: Intake & Output 03/12/22 03/13/22 03/14/22 03/15/22 11:59 11:59 11:59 11:59 Intake Total 560 / 560 1080 / 1080 1135 / 1135 Output Total 0 / 0 750 / 750 2675 / 2675 Balance 560 / 560 330 / 330 -1540 / -1540 Weight 126 lb 7 oz 118 lb 6 oz 120 lb 7 oz Microbiology Reports for the Last 24 Hours: Microbiology 03/12/22 13:50 Foot,Right - Wound Gram Stain - Final 03/12/22 13:50 Foot,Right - Wound Wound Culture - Preliminary Gram Positive Cocci 03/12/22 14:20 Blood Blood Culture - Preliminary NO GROWTH AFTER 48 HOURS 03/12/22 14:20 Blood Blood Culture - Preliminary NO GROWTH AFTER 48 HOURS Constitutional Constitutional: no acute distress *Routine Respiratory Exam Respiratory: Present CTA bilaterally *Routine Cardiovascular Exam Cardiovascular: Present RRR *Routine Extremities Exam Extremities: Present edema Comments: Right lower extremity warm with faint pulses. Left lower extremity cool with faint pulses. No appreciable pulsating masses in the left groin. Bruising is noted. No lower abdominal discomfort *Routine Neurological Exam Neurological: Present alert and oriented X3 Progress Note: A&P Assessment and plan (1) PAD (peripheral artery disease): Status: Acute (2) Encounter for wound care: Status: Acute (3) Dystrophia unguium: Status: Acute (4) Tobacco abuse: Status: Acute (5) Keratosis: Status: Acute (6) Diabetic foot ulcer: Status: Acute (7) Decreased pedal pulses: Status: Acute (8) Pain in right foot: Status: Acute (9
--- NOTE | 2022-03-15 11:58 | HMH.PTEV ---
Physical Therapy Evaluation Rehab PT IP Evaluation Start: 03/15/22 08:48 Freq: ONCE Status: Active Protocol: Document 03/15/22 11:53 PHOCOCO (Rec: 03/15/22 11:58 PHORNE [id number]) Subjective/History History History 61 yohf adm to [facility] with R foot wounds with possible cellulitis and dry gangrene. She has hx of DM-II and was found to have severe PAD in B LE. Now S/P arterial intervention to improve blood flow, no plans for debridement of wounds at this time. She reports being independent with all mobility prior to adm, she lives with spouse, 6 steps to enter the home. Subjective Subjective Currently she c/o pain in the R foot with any movment, but she did not rate when asked. Rehab PT IP Eval Objective Appearance Patient Behavior Appropriate Patient Orientation Person,Place,Time Difficulty following instructions none Speech Pattern Clear Ambulation Patient Able to Ambulate Yes Ambulation Observation IP General Gait Pattern Observation Antalgic Gait,Decrease Weight Bear (R),Decrease Stride Lngth (R) Ambulation Distance (feet) 3 Ambulation Assistive Device Rolling Walker Ambulation Ability Contact Guard/Hand Hold Balance Ability to Arise Able, uses arms to help Sitting Balance Steady, safe Standing Balance Steady, wide stance Dynamic Sitting Balance Ability Good Dynamic Standing Balance Ability Fair Transfers Bed Transfer Ability Supervision/Stand by Chair Transfer Ability Supervision/Stand by Sit to Stand Bed Transfer Ability Supervision/Stand by Sit to Stand Chair Transfer Ability Supervision/Stand by Rehab PT IP prob,goals,plan Problems Date of Evaluation: 03/15/22 Discharge Plan PT Discharge Plan Pt is appropriate to return home once medically stable, Recommend rolling walker for home use and she will need a post/op shoe or cam walker prior to D/C. G -code Required No Eval Complexity Eval Charge Codes 74589 - Moderate Complexity PHYSICIAN CERTIFICATION: I certify the specified therapy services for Gabbie Puri are required
[2022-03-15 12:10] LABS: POC Glucose,Bedside 191 (70-110)
[2022-03-15 15:12] LABS: Vancomycin,Trough 5.7 ug/mL (5.0-10.0)
--- NOTE | 2022-03-15 15:27 | HMH.PHAHEP ---
[facility] Pharmacy Heparin Dosing Demographic Data Admission date:: 03/14/22 Date: 03/15/22 Time: 15:27 Allergies Allergy/AdvReac Type Severity Reaction Status Date / Time Sulfa (Sulfonamide Allergy Severe rash; Verified 04/13/20 13:35 Antibiotics) itchy; trouble breathing Height: 1.63 m Weight: 53.63 kg Indication Medication therapy:: Heparin Current Active Problems (Updated 03/16/22 @ 09:05 by Catina Grande APRN) Edema of right ankle (Acute) PAD (peripheral artery disease) (Acute) Encounter for wound care (Acute) Dystrophia unguium (Acute) Tobacco abuse (Acute) Keratosis (Acute) Diabetic foot ulcer (Acute) Decreased pedal pulses (Acute) Pain in right foot (Acute) Cellulitis of right foot (Acute) Hypertension (Acute) Type 2 diabetes mellitus (Acute) Gangrene of right foot (Acute) Diabetic ulcer of foot associated with type 2 diabetes mellitus, with necrosis of muscle (Acute) CVA?: No Bleeding problem?: No Kidney disease?: No DC?: No Desired PTT range:: 50-75 seconds Labs Anticoagulation Lab Results:: 03/15/22 06:40 Hgb 11.4 L Hct 35.1 L Plt Count 409 Monitoring Dose Monitor 1: Date: 03/15/22 Time: 15:30 PTT Result:: 25.3 Infusion Rate:: HEPARIN DRIP RESTARTED TODAY AT 22 ML/HR (1100 UNITS/HR) AND BOLUS OF 4300 UNITS. Dose Monitor 2: Date: 03/15/22 Time: 19:00 PTT Result:: 55.3 Infusion Rate:: CONT. HEPARIN 22 ML/HR (1100 UNITS/HR) Dose Monitor 3: Date: 03/16/22 Time: 02:00 PTT Result:: 40.9 Infusion Rate:: HEPARIN RATE INCREASED TO 24 ML/HR (1200 UNITS/HR), HEPARIN 3000 UNIT BOLUS GIVEN. Dose Monitor 4: Date: 03/16/22 Time: 07:45 PTT Result:: 49.8 Infusion Rate:: DOSE INCREASED TO HEPARIN 26 ML/HR (1300 UNITS/HR) PTT WAS VERY CLOSE TO THERAPEUTIC LEVEL (49.8). NO BOLUS WAS GIVEN AT THIS TIME. Dose Monitor 5: Date: 03/16/22 Time: 19:00 PTT Result:: 44.7 Infusion Rate:: HEPARIN DRIP WAS INCREASED TO 28 ML/HR AND HEPARIN 3000 UNIT BOLUS GIVEN. Comment:: HEPARIN DRIP HELD ~1100 PATIENT WAS IN MATERIAL CONTROLLER. PATIENT RECEIVED HEPARIN 5000 UNITS IN MATERIAL CONTROLLER ABOUT 1146. HEPARIN DRIP WAS RESTARTED AT 1430 AT 26 ML/HR (1300 UNITS/HR) WITH NO BOLUS DUE TO HEPARIN GIVEN IN MATERIAL CONTROLLER. Dose Monitor 6: Date: 03/17/22 Time: 03:00 PTT Result:: 92.2 Infusion Rate:: HEPARIN RATE DECREASED TO 26 ML/HR (1300 UNITS/HR) Dose Monitor 7: Date: 03/17/22 Time: 10:05 PTT Result:: 62.6 Core Measures Is INR > or = 2 at discharge?: No Most Recent Labs:: Laboratory Results - last 24 hr 03/14/22 05:40: POC Glucose 295 H 03/14/22 15:05: APTT 147.2 H* 03/14/22 16:39: POC Glucose 197 H 03/14/22 17:52: APTT 57.9 H* 03/14/22 20:18: POC Glucose 370 H* 03/15/22 02:10: APTT 41.0 H 03/15/22 05:35: POC Glucose 225 H 03/15/22 06:40: WBC 12.6 H, RBC 3.70 L, Hgb 11.4 L, Hct 35.1 L, MCV 95.0, MCH 30.8, MCHC 32.4, RDW 13.0, Plt Count 409, MPV 8.0, Neut % (Auto) 74.9, Lymph % (Auto) 19.0, [place] % (Auto) 4.0, Eos % (Auto) 1.5, Baso % (Auto) 0.6, Neut # (Auto) 9.4 H, Lymph # (Auto) 2.4, [place] # (Auto) 0.5, Eos # (Auto) 0.2, Baso # (Auto) 0.1, Total Counted 100, Neutrophils % (Manual) 74, Lymphocytes % (Manual) 20, Monocytes % (Manual) 3, Eosinophils % (Manual) 3, Platelet Estimate Slight increase, RBC Morphology Normal 03/15/22 06:40: Sodium 139, Potassium 4.1, Chloride 103, Carbon Dioxide 25, Anion Gap 15.1 H, BUN 19 H, Creatinine 0.70 D, Estimated Creat Clear 50, Estimated GFR 85, Est GFR ( Amer) 102 D, Glucose 209 H, Calcium 8.3 L, C-Reactive Protein 90.1 H 03/15/22 06:40: ESR 106 H 03/15/22 08:25: APTT 66.5 H* 03/15/22 11:42: POC Glucose 191 H 03/15/22 14:30: Vancomycin Trough 5.7 Were Heparin and Warfarin started on the same day?: No If not, why?: heparin drip stopped today.
[2022-03-15 15:58] LABS: PTT Heparin (inpatient only) 25.2 Seconds (23.6-34.0)
--- NOTE | 2022-03-15 17:49 | PC.NURSE ---
NO CHANGES SINCE PREVIOUS ASSESSMENT. SHE HAS BEEN TREATED FOR PAIN X2 THIS SHIFT WITH GOOD EFFECTIVENESS. HAS NOT REQUIRED O2 SUPPORT. DENIES PAIN N/V/D THIS SHIFT. 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 HEPARIN GTT RESTARTED PER CARDIOLOGY.
[2022-03-15 17:52] LABS: POC Glucose,Bedside 254 (70-110)
[2022-03-15 19:41] LABS: PTT Heparin (inpatient only) 55.3 Seconds (23.6-34.0)
--- NOTE | 2022-03-15 19:58 | PC.NURSE ---
[facility] contacted at this time with PTT results, Juan Carlos stated to leave heparin gtt the same and he would put an order in to recheck in 6 hours
[2022-03-15 20:08] LABS: Vancomycin,Peak 15.4 ug/ml (11-39)
[2022-03-15 21:10] LABS: POC Glucose,Bedside 171 (70-110)
[2022-03-16] VITALS (42 sets, daily range): BP systolic 100–152; BP diastolic 47–89; PULSE 70–93; RESP 15–18; TEMP 36.4–36.7; O2SAT 92–100; BMI 20.9
--- NOTE | 2022-03-16 | IR_ITS ---
APPROVED REPORT Patient Location: Inpatient PROCEDURES Catheter placement in the left femoral artery Left femoral artery selective angiogram Angioplasties left femoral artery Catheter placed in left superficial femoral artery Left superficial femoral artery selective angiogram Angioplasty followed by bare-metal stent deployment to the left superficial femoral artery INDICATION Acute on chronic ischemic left leg, Acute occlusion of the left femoral artery and left superficial femoral artery Informed consent was obtained prior to the procedure. COMPLICATIONS None Estimated Blood Loss: Less than 10 mls TECHNIQUE 1% lidocaine used anesthetize right groin the right femoral artery was accessed via the center technique and a 5 [place] sheath was placed in right femoral artery. A rim guide catheter was advanced to the distal abdominal aorta and an advantage wire was placed under fluoroscopic guidance into the left femoral artery. The rim catheter was advanced and selective left femoral artery angiography was performed. Following this therapeutic heparin was administered and the advantage wire was used to push through the occlusion in the left common femoral artery and left superficial femoral artery. Following this the 5 [place] sheath was exchanged for a 6 [place] destination sheath. A 5 x 20 mm balloon was used to predilate the occlusion in the left common femoral artery and left superficial femoral artery. A 7 x 20 mm balloon was then advanced to the left superficial femoral artery and left common femoral artery and deployed reducing the stenosis. Large dissection was identified in the left superficial femoral artery therefore 7 mm x 20 mm self-expanding stent was deployed tacking back the dissection and giving excellent inline flow down the SFA. Repeat angiography demonstrated wide patency of the left common femoral artery with a small dissection not impeding flow. At the end of the procedure the apparatus was removed the sheath was pulled back into the abdominal aorta patient was transferred the postop putting in stable condition IMPRESSION Successful angioplasty left common femoral artery 100% occlusion reduced to wide patency with angioplasty Successful angioplasty and bare-metal stent deployment to the left superficial femoral artery reducing the 100% occlusion to less than 10% PLAN 1. Dual antiplatelet therapy 2. Continue risk factor modification 3. Supportive care and avoidance of tobacco products Electronically signed by : Anival Snow MD 03/16/2022 13:44:42
[2022-03-16 02:36] LABS: PTT Heparin (inpatient only) 40.9 Seconds (23.6-34.0)
--- NOTE | 2022-03-16 03:00 | PC.NURSE ---
[facility] contacted at this time with PTT result, Kathryn from [facility] stated to increase heparin gtt to 1200 units/hr and to give 3000 unit bolus now, she will put in next PTT for 0900
--- NOTE | 2022-03-16 04:20 | PC.NURSE ---
pt has been up most of shift, has c/o pain in RLE 3 times so far this shift and was treated per AUG, pulse marked on right foot, heparin gtt still infusing currently at 1200 units/hr, next PTT at 0900
--- NOTE | 2022-03-16 04:23 | PC.NURSE ---
pt has been up most of shift, has c/o pain in RLE 3 times so far this shift and was treated per AUG, pulse marked on right foot, heparin gtt still infusing currently at 1200 units/hr, next PTT at 0900, remains on room air
[2022-03-16 05:49] LABS: POC Glucose,Bedside 135 (70-110)
--- NOTE | 2022-03-16 07:26 | PC.NURSE ---
attempted to complete consent form pt had some questions for gas dispenser
--- NOTE | 2022-03-16 08:18 | EXP.CARD.PN ---
Subjective Subjective Date: 03/16/22 Time: 08:18 Principal diagnosis: PAD, right foot dry gangrene Interval history: 61-year-old female sitting in bedside chair in no acute distress. Right foot still warm with some itching sensation per patient. Left lower extremity still cold below the knee compared to the right. Procedure explained to the patient and all questions answered. Exam Data for Last 24 hours Vital signs and Labs for Last 24 Hours: Temp Pulse Resp BP Pulse Ox 98.0 F 84 16 145/76 H 94 L 03/16/22 04:00 03/16/22 04:00 03/16/22 04:00 03/16/22 04:00 03/16/22 04:00 Laboratory Results - last 24 hr 03/15/22 08:25: APTT 66.5 H* 03/15/22 11:42: POC Glucose 191 H 03/15/22 14:30: Vancomycin Trough 5.7 03/15/22 15:38: APTT 25.2 03/15/22 17:20: POC Glucose 254 H 03/15/22 19:08: Vancomycin Peak 15.4 03/15/22 19:08: APTT 55.3 H* 03/15/22 20:24: POC Glucose 171 H 03/16/22 02:15: APTT 40.9 H 03/16/22 05:41: POC Glucose 135 H I & O for Last 24 hours: Intake & Output 03/13/22 03/14/22 03/15/22 03/16/22 11:59 11:59 11:59 11:59 Intake Total 560 / 560 1080 / 1080 1135 / 1135 1263.9 / 1263.9 Output Total 0 / 0 750 / 750 2675 / 2675 1150 / 1150 Balance 560 / 560 330 / 330 -1540 / -1540 113.9 / 113.9 Weight 126 lb 7 oz 118 lb 6 oz 120 lb 7 oz 123 lb Microbiology Reports for the Last 24 Hours: Microbiology 03/12/22 13:50 Foot,Right - Wound Gram Stain - Final 03/12/22 13:50 Foot,Right - Wound Wound Culture - Final Staphylococcus epidermidis *Routine Respiratory Exam Respiratory: Present CTA bilaterally *Routine Cardiovascular Exam Cardiovascular: Present RRR *Routine Extremities Exam Comments: Left lower extremity cool below the knee. Right lower extremity warm with improving ulcerations with dry gangrene now turning to wet. Progress Note: A&P Assessment and plan (1) PAD (peripheral artery disease): Status: Acute (2) Encounter for wound care: Status: Acute (3) Dystrophia unguium: Status: Acute (4) Tobacco abuse: Status: Acute (5) Keratosis: Status: Acute (6) Diabetic foot ulcer: Status: Acute (7) Decreased pedal pulses: Status: Acute (8) Pain in right foot: Status: Acute (9) Cellulitis of right foot: Status: Acute (10) Type 2 diabetes mellitus: Status: Acute (11) Gangrene of right foot: Status: Acute (12) Diabetic ulcer of foot associated with type 2 diabetes mellitus, with necrosis of muscle: Status: Acute Assessment and Plan Assessment and Plan for All Diagnoses:: 1. Right lower extremity foot ulcers with dry gangrene status post Stent placement to right popliteal artery. 2. Left lower extremity weakness and coolness to touch, CTA results with runoff revealed Focal short segment occlusion of the proximal left SFA suspected to be acute with tandem proximal left SFA stenosis of approximately 70%.? ? Suspect left profundal thromboembolic disease. Plan for intervention of the left SFA today. 3. Tobacco use, cessation recommended 4. Diabetes mellitus, continue medical therapy
[2022-03-16 08:20] LABS: PTT Heparin (inpatient only) 49.8 Seconds (23.6-34.0)
--- NOTE | 2022-03-16 08:45 | PC.NURSE ---
late entry- Beau in Pharmacy notified of PTT. dosage adjusted per protocol
--- NOTE | 2022-03-16 08:49 | EXP.ORTH.PN ---
Subjective *Date: 03/16/22 *Time: : Interval history: Patient sitting up in chair, no acute distress noted. Complaining of right leg cramps when the leg is elevated and prefers to keep it flat when in bed or neutral position when up in chair. The right leg remains edematous, erythematous with all arterial wounds intact. Patient stated that her pain is much better. All wounds painted with betadine. Ok to discharge from podiatry stand point. Patient is to f/u with podiatry in 2 weeks. Ortho Exam (Inpt) Vital signs and Labs for Last 24 Hours: Temp Pulse Resp BP Pulse Ox 97.6 F 84 16 152/73 H 98 03/16/22 08:00 03/16/22 08:00 03/16/22 08:00 03/16/22 08:00 03/16/22 08:00 Laboratory Results - last 24 hr 03/15/22 11:42: POC Glucose 191 H 03/15/22 14:30: Vancomycin Trough 5.7 03/15/22 15:38: APTT 25.2 03/15/22 17:20: POC Glucose 254 H 03/15/22 19:08: Vancomycin Peak 15.4 03/15/22 19:08: APTT 55.3 H* 03/15/22 20:24: POC Glucose 171 H 03/16/22 02:15: APTT 40.9 H 03/16/22 05:41: POC Glucose 135 H 03/16/22 08:07: APTT 49.8 H I & O for Labs for Last 24 Hours: Intake & Output 03/13/22 03/14/22 03/15/22 03/16/22 23:59 23:59 23:59 23:59 Intake Total 800 / 800 1200 / 1200 1062.9 / 1062.9 616 / 616 Output Total 0 / 0 3150 / 3150 1025 / 1025 400 / 400 Balance 800 / 800 -1950 / -1950 37.9 / 37.9 216 / 216 Weight 126 lb 7 oz 118 lb 5.859 oz 118 lb 3.742 oz 123 lb Microbiology Reports for the Last 24 Hours: Microbiology 03/12/22 13:50 Foot,Right - Wound Gram Stain - Final 03/12/22 13:50 Foot,Right - Wound Wound Culture - Final Staphylococcus epidermidis Constitutional: Present no acute distress Head: Present normocephalic Neck: Present normal inspection and trachea midline Respiratory: Present normal respiratory effort and able to speak in complete sentences Cardiac: Present Regular Rate and pedal pulses present GI: Present other (no obesity) Rectal (female): Present deferred (female): Present deferred Extremities: Present tenderness (right foot), normal capillary refill (sluggish right foot), edema (right foot) and calf tenderness (no calf tenderness) Skin: Present erythema (right foot) and wounds (right foot) Neuro: Present oriented x 3 and moves all extremities Ankle: right: erythema, right: swelling and right: tenderness Feet/Toes: right: erythema, right: swelling, right: tenderness and right: wound Feet w/LR Ind Top: 1. Right hallux plantar and medial wound with 100% black eschar, 3x2x0.0cm. Right 5th toe distal black eschar, several wounds noted to right lateral foot, wound beds with black eschar noted. Pain 10/10 with palpation. Wound: right 5th toe: 2x1.5x0.0cm, 100% black eschar. Right 5th metatarsal: 3x3x0.1cm, 100% black eschar. Right lateral cax3x0.0cm, 100% black eschar. All dry gangrene, unstageable. Dry skin noted to left foot, pain with palpation but no open wounds noted. Assessment and Plan *Assessment and plan (1) PAD (peripheral artery disease): Status: Acute Category: Medical Code(s): I73.9 - Peripheral vascular disease, unspecified (2) Encounter for wound care: Status: Acute Category: Medical Code(s): Z51.89 - Encounter for other specified aftercare (3) Dystrophia unguium: Status: Acute Category: Medical Code(s): L60.3 - Nail dystrophy (4) Tobacco abuse: Status: Acute Category: Medical Code(s): Z72.0 - Tobacco use (5) Keratosis: Status: Acute Category: Medical Code(s): L57.0 - Actinic keratosis (6) Diabetic foot ulcer: Status: Acute Qualifiers: Diabetes mellitus type: type 2 Diabetic foot ulcer location: other Laterality: right Non-pressure ulcer stage: with other severity Qualified Code(s): E11.621 - Type 2 diabetes mellitus with foot ulcer; L97.518 - Non-pressure chronic ulcer of other part of right foot with other sp
--- NOTE | 2022-03-16 08:49 | EXP.ACUTE.PN ---
Subjective *Date: 03/16/22 *Time: 09:08 Interval history: Patient states she feels about the same today. Still having some pain and tingling sensation on the right foot. She states her left foot is cold and she is concerned with this. Cardiology has seen her and plans to take her to the [facility] today for intervention of the left SFA. She states she did rest well last night. Medical Exam Vital signs and Labs for Last 24 Hours: Temp Pulse Resp BP Pulse Ox 97.6 F 84 16 152/73 H 98 03/16/22 08:00 03/16/22 08:00 03/16/22 08:00 03/16/22 08:00 03/16/22 08:00 Laboratory Results - last 24 hr 03/15/22 11:42: POC Glucose 191 H 03/15/22 14:30: Vancomycin Trough 5.7 03/15/22 15:38: APTT 25.2 03/15/22 17:20: POC Glucose 254 H 03/15/22 19:08: Vancomycin Peak 15.4 03/15/22 19:08: APTT 55.3 H* 03/15/22 20:24: POC Glucose 171 H 03/16/22 02:15: APTT 40.9 H 03/16/22 05:41: POC Glucose 135 H 03/16/22 08:07: APTT 49.8 H I & O for Labs for Last 24 Hours: Intake & Output 03/13/22 03/14/22 03/15/22 03/16/22 11:59 11:59 11:59 11:59 Intake Total 560 / 560 1080 / 1080 1135 / 1135 1263.9 / 1263.9 Output Total 0 / 0 750 / 750 2675 / 2675 1150 / 1150 Balance 560 / 560 330 / 330 -1540 / -1540 113.9 / 113.9 Weight 126 lb 7 oz 118 lb 6 oz 120 lb 7 oz 123 lb Microbiology Reports for the Last 24 Hours: Microbiology 03/12/22 13:50 Foot,Right - Wound Gram Stain - Final 03/12/22 13:50 Foot,Right - Wound Wound Culture - Final Staphylococcus epidermidis Constitutional: Present no acute distress Respiratory: Present CTA bilaterally Cardiac: Present Reg Rate and Rhythm GI: Present soft; Absent distention or tenderness Skin: Present erythema (Right foot still with erythema to the mid jenkins, right toe was black as is right fifth digit, there are also some necrotic areas along the lateral side of the foot, the entire foot is tender) Comment:: left foot is cold compared to the right Assessment and Plan *Assessment and plan (1) Diabetic ulcer of foot associated with type 2 diabetes mellitus, with necrosis of muscle: Status: Acute Category: Medical Code(s): E11.621 - Type 2 diabetes mellitus with foot ulcer; L97.503 - Non-pressure chronic ulcer of other part of unspecified foot with necrosis of muscle (2) Gangrene of right foot: Status: Acute Category: Medical Code(s): I96 - Gangrene, not elsewhere classified (3) Cellulitis of right foot: Status: Acute Category: Medical Code(s): L03.115 - Cellulitis of right lower limb (4) Pain in right foot: Status: Acute Category: Medical Code(s): M79.671 - Pain in right foot (5) PAD (peripheral artery disease): Status: Acute Category: Medical Code(s): I73.9 - Peripheral vascular disease, unspecified (6) Dystrophia unguium: Status: Acute Category: Medical Code(s): L60.3 - Nail dystrophy (7) Tobacco abuse: Status: Acute Category: Medical Code(s): Z72.0 - Tobacco use (8) Type 2 diabetes mellitus: Status: Acute Category: Medical Code(s): E11.9 - Type 2 diabetes mellitus without complications Plan CTA results with runoff revealed?focal short segment occlusion of the proximal left SFA suspected to be acute with tandem proximal left SFA stenosis of approximately 70%.? ? Suspect left profundal thromboembolic disease.? Cardiology plans for intervention of the left SFA today. Podiatry feels the patient can be discharged home and will need to follow-up within 1 to 2 weeks after discharge. They want her discharged on 10 days of oral Bactrim or clindamycin to cover for the cellulitis. Dr. Hendrix entry - Saw patient, agree with above note.
--- NOTE | 2022-03-16 09:12 | EXP.PHA.PN ---
Subjective *Date: 03/16/22 *Time: 09:12 Medical Exam Vital signs and Labs for Last 24 Hours: Temp Pulse Resp BP Pulse Ox 97.6 F 84 16 152/73 H 98 03/16/22 08:00 03/16/22 08:00 03/16/22 08:00 03/16/22 08:00 03/16/22 08:00 Laboratory Results - last 24 hr 03/15/22 11:42: POC Glucose 191 H 03/15/22 14:30: Vancomycin Trough 5.7 03/15/22 15:38: APTT 25.2 03/15/22 17:20: POC Glucose 254 H 03/15/22 19:08: Vancomycin Peak 15.4 03/15/22 19:08: APTT 55.3 H* 03/15/22 20:24: POC Glucose 171 H 03/16/22 02:15: APTT 40.9 H 03/16/22 05:41: POC Glucose 135 H 03/16/22 08:07: APTT 49.8 H I & O for Labs for Last 24 Hours: Intake & Output 03/13/22 03/14/22 03/15/22 03/16/22 23:59 23:59 23:59 23:59 Intake Total 800 / 800 1200 / 1200 1062.9 / 1062.9 616 / 616 Output Total 0 / 0 3150 / 3150 1025 / 1025 975 / 975 Balance 800 / 800 -1950 / -1950 37.9 / 37.9 -359 / -359 Weight 57.351 kg 53.69 kg 53.63 kg 55.792 kg Microbiology Reports for the Last 24 Hours: Microbiology 03/12/22 13:50 Foot,Right - Wound Gram Stain - Final 03/12/22 13:50 Foot,Right - Wound Wound Culture - Final Staphylococcus epidermidis The patient's infection will respond to the chosen ABx?: Yes (STAPH EPI, REPEAT CX NEGATIVE, ON VANCOMYCIN AND CEFEPIME.) Is the patient receiving the right drug, dose, and route?: Yes Could a more targeted ABx be ordered?: No
[2022-03-16 13:01] LABS: CATHL Activated Clotting Time 212 SEC (74-125)
[2022-03-16 14:44] LABS: CATHL Activated Clotting Time 176 SEC (74-125)
--- NOTE | 2022-03-16 16:39 | PC.NURSE ---
pt is aox4 but drowsy from procedure. dsg in place to right groin c/d/i/ slightly tender on palpation. lower extremities are warm to touch. she has not required o2 support this shift. heparin gtt infusing per order.
[2022-03-16 20:10] LABS: PTT Heparin (inpatient only) 44.7 Seconds (23.6-34.0)
--- NOTE | 2022-03-16 21:00 | HMH.PHAINT ---
pharmacy notified of PTT 44.7, note new orders entered per pharmacy [facility]
[2022-03-16 21:07] LABS: POC Glucose,Bedside 180 (70-110)
[2022-03-17] VITALS: BP 127/58; PULSE 97; RESP 18; TEMP 37; O2SAT 98
[2022-03-17 00:32] LABS: POC Glucose,Bedside 252 (70-110)
[2022-03-17 03:59] LABS: PTT Heparin (inpatient only) 92.2 Seconds (23.6-34.0)
[2022-03-17 04:00] VITALS: BP 112/56; PULSE 75; RESP 17; TEMP 36.8; O2SAT 97
--- NOTE | 2022-03-17 04:08 | HMH.PHAINT ---
ptt called to [facility] heparin drip decreased to 1300units/hr at this time, next ptt in 6 hours.
--- NOTE | 2022-03-17 04:30 | PC.NURSE ---
2nd IV placed at this time. #22g to right distal forearm. 1 successful stick, saline locked.
--- NOTE | 2022-03-17 04:54 | PC.NURSE ---
pt restless through the night, pt complains of pain to both lower extremities worse than before, md called for pain unrelieved by oxycodone as prescribed, pt requested ibuprofen and was given as prescribed, pt stated relief from ibuprofen and stated that is what she takes at home and helps her pain, it was noted pt had a patch on top of right thigh in which pt stated she received from [place] and that it was for her pain, pt refused to remove it at this time, no acute distress, iv infiltrated to left ac, lungs cta bilaterally, heart RRR, abd soft and distended, pt is voiding without difficulty, 2+ edema to RLE with redness, warm to touch, 1+ edema to LLE, +pedal pulses bilaterally, pt is alert and oriented x4, pt speaks broken haitian, translator/interpreter ipad in room at bedside, bilateral femoral cath sites with bruising, bruising noted to extend to left thigh and hip area, dressing to right femoral CDI without hematoma, no other issues noted at this time.
[2022-03-17 05:00] VITALS: BMI 21.7
[2022-03-17 08:17] VITALS: BP 140/74; PULSE 85; RESP 16; TEMP 36.8; O2SAT 100
--- NOTE | 2022-03-17 08:34 | EXP.ACUTE.PN ---
Subjective *Date: 03/19/22 *Time: 16:11 Interval history: Patient states she feels a little bit better this morning. She slept and ate breakfast. She had a stent placed in the left leg yesterday and does have better feeling and warmth in the left leg today. She does however have quite a bit of bruising in the left thigh and left upper leg. She states her right foot is head still operator. Medical Exam Vital signs and Labs for Last 24 Hours: Temp Pulse Resp BP Pulse Ox 98.3 F 75 17 112/56 L 97 03/17/22 04:00 03/17/22 04:00 03/17/22 04:00 03/17/22 04:00 03/17/22 04:00 Laboratory Results - last 24 hr 03/16/22 11:56: Activated Clotting Time 212 H* 03/16/22 12:32: Activated Clotting Time 176 H* 03/16/22 16:56: POC Glucose 180 H 03/16/22 19:42: APTT 44.7 H 03/16/22 20:11: POC Glucose 252 H 03/17/22 03:15: APTT 92.2 H* I & O for Labs for Last 24 Hours: Intake & Output 03/14/22 03/15/22 03/16/22 03/17/22 11:59 11:59 11:59 11:59 Intake Total 1080 / 1080 1135 / 1135 1263.9 / 1263.9 903 / 903 Output Total 750 / 750 2675 / 2675 2325 / 2325 1325 / 1325 Balance 330 / 330 -1540 / -1540 -1061.1 / -1061.1 -422 / -422 Weight 118 lb 6 oz 120 lb 7 oz 123 lb 127 lb 1 oz Microbiology Reports for the Last 24 Hours: Microbiology 03/12/22 13:50 Foot,Right - Wound Gram Stain - Final 03/12/22 13:50 Foot,Right - Wound Wound Culture - Preliminary Staphylococcus epidermidis Constitutional: Present no acute distress Respiratory: Present CTA bilaterally Cardiac: Present Reg Rate and Rhythm GI: Present soft; Absent distention or tenderness Comment:: Quite a bit of ecchymosis in the left groin and left upper thigh Skin: Present erythema (Right foot still with erythema to the mid jenkins, right toe was black as is right fifth digit, there are also some necrotic areas along the lateral side of the foot, the entire foot is tender) Comment:: left foot is cold compared to the right Assessment and Plan *Assessment and plan (1) Diabetic ulcer of foot associated with type 2 diabetes mellitus, with necrosis of muscle: Status: Acute Category: Medical Code(s): E11.621 - Type 2 diabetes mellitus with foot ulcer; L97.503 - Non-pressure chronic ulcer of other part of unspecified foot with necrosis of muscle (2) Gangrene of right foot: Status: Acute Category: Medical Code(s): I96 - Gangrene, not elsewhere classified (3) Cellulitis of right foot: Status: Acute Category: Medical Code(s): L03.115 - Cellulitis of right lower limb (4) Pain in right foot: Status: Acute Category: Medical Code(s): M79.671 - Pain in right foot (5) PAD (peripheral artery disease): Status: Acute Category: Medical Code(s): I73.9 - Peripheral vascular disease, unspecified (6) Dystrophia unguium: Status: Acute Category: Medical Code(s): L60.3 - Nail dystrophy (7) Tobacco abuse: Status: Acute Category: Medical Code(s): Z72.0 - Tobacco use (8) Type 2 diabetes mellitus: Status: Acute Category: Medical Code(s): E11.9 - Type 2 diabetes mellitus without complications Plan Podiatry feels the patient can be discharged home and will need to follow-up within 1 to 2 weeks after discharge. Podiatry wants her discharged on 10 days of oral Bactrim or clindamycin to cover for the cellulitis. She is allergic to Sulfa. Cardiology to see today and evaluate the extensive bruising of the left groin and thigh. Patient seen and examined. Concur with above. /Dr. Nation
--- NOTE | 2022-03-17 08:58 | EXP.CARD.PN ---
Subjective Subjective Date: 03/17/22 Time: 08:58 Principal diagnosis: PAD, right foot dry gangrene Interval history: 61 yo female at bedside eating breakfast in NAD. Complains of new back pain since procedure yesterday. Significant bruising of left thigh and hip. No significant tenderness in belly. Right femoral site ok. Exam Data for Last 24 hours Vital signs and Labs for Last 24 Hours: Temp Pulse Resp BP Pulse Ox 98.3 F 75 17 112/56 L 97 03/17/22 04:00 03/17/22 04:00 03/17/22 04:00 03/17/22 04:00 03/17/22 04:00 Laboratory Results - last 24 hr 03/16/22 11:56: Activated Clotting Time 212 H* 03/16/22 12:32: Activated Clotting Time 176 H* 03/16/22 16:56: POC Glucose 180 H 03/16/22 19:42: APTT 44.7 H 03/16/22 20:11: POC Glucose 252 H 03/17/22 03:15: APTT 92.2 H* I & O for Last 24 hours: Intake & Output 03/14/22 03/15/22 03/16/22 03/17/22 11:59 11:59 11:59 11:59 Intake Total 1080 / 1080 1135 / 1135 1263.9 / 1263.9 903 / 903 Output Total 750 / 750 2675 / 2675 2325 / 2325 1325 / 1325 Balance 330 / 330 -1540 / -1540 -1061.1 / -1061.1 -422 / -422 Weight 118 lb 6 oz 120 lb 7 oz 123 lb 127 lb 1 oz Microbiology Reports for the Last 24 Hours: Microbiology 03/12/22 13:50 Foot,Right - Wound Gram Stain - Final 03/12/22 13:50 Foot,Right - Wound Wound Culture - Preliminary Staphylococcus epidermidis Constitutional Constitutional: no acute distress *Routine Respiratory Exam Respiratory: Present rhonchi *Routine Cardiovascular Exam Cardiovascular: Present RRR *Routine Extremities Exam Extremities: Present edema Comments: RLE unchanged. LLE warm. Brusing as noted. *Routine Neurological Exam Neurological: Present alert and oriented X3 Progress Note: A&P Assessment and plan (1) Diabetic ulcer of foot associated with type 2 diabetes mellitus, with necrosis of muscle: Status: Acute (2) Gangrene of right foot: Status: Acute (3) Cellulitis of right foot: Status: Acute (4) Pain in right foot: Status: Acute (5) PAD (peripheral artery disease): Status: Acute (6) Dystrophia unguium: Status: Acute (7) Tobacco abuse: Status: Acute (8) Type 2 diabetes mellitus: Status: Acute Assessment and Plan Assessment and Plan for All Diagnoses:: CT of Abd/pelvis to evaluate for bleeding internally. check Hgb/Hct. If above negative for bleed then she could be discharged home later today on Lipitor 20 mg daily, aspirin 81 mg daily and Plavix 75 mg daily. Would recommend follow-up in our office in 1 week
--- NOTE | 2022-03-17 09:12 | PC.NURSE ---
All medications given by Lia LEWIS was completed under my direct supervision.
--- NOTE | 2022-03-17 09:12 | PC.NURSE ---
All care and documentation by Lia LEWIS was completed under my direct supervision.
--- NOTE | 2022-03-17 09:55 | PC.NURSE ---
pt is resting and has no further requests at this time
[2022-03-17 10:06] LABS: Hematocrit 27.2 % (37.0-47.0); Hemoglobin 9.1 g/dL (12.2-16.2)
[2022-03-17 10:09] LABS: Chloride 104 mmol/L (98-107); Sodium 138 mmol/L (136-145)
[2022-03-17 10:10] LABS: Potassium 3.7 mmoL/L (3.5-5.1)
[2022-03-17 10:13] LABS: Anion Gap 13.7 mEq/L (5-15); Blood Urea Nitrogen 13 mg/dl (7-17); Calcium 7.5 mg/dl (8.4-10.2); Carbon Dioxide 24 mmol/L (22.0-30.0); Creatinine Clearance Estimated 52 mL/min (50-200); Estimated Glomerular Filt Rate 101 ml/min (>60); GFR (African American) 122 ML/MIN (>60); Glucose 202 mg/dl (74-100)
--- NOTE | 2022-03-17 10:18 | PC.NURSE ---
Called pharmacy to report critical PTT. They stated to leave heparin level the same
--- NOTE | 2022-03-17 10:18 | PC.NURSE ---
Spoke with duyen from LAB on critical PTT of 62.6
[2022-03-17 10:19] LABS: PTT Heparin (inpatient only) 62.6 Seconds (23.6-34.0)
--- NOTE | 2022-03-17 10:43 | CT_ITS ---
FINAL REPORT TECHNIQUE: Noncontrast exam CLINICAL HISTORY: back pain after cath procedure, bruising left thig FINDINGS: Abdomen: Lung bases are clear. Liver, spleen, pancreas and adrenal glands have a normal CT appearance in their limited unenhanced state. There is mild heterogeneous appearance of the kidneys related to retained contrast from recent catheterization. The kidneys show no stone disease or obstruction. No obvious renal mass is present. No ureteral stones are present. There is mild fecal impaction. There is no evidence of retroperitoneal hemorrhage. Pelvis: No distal ureteral stones are seen. Bladder is distended with excreted contrast. The uterus is unremarkable. There is no evidence of pelvic hemorrhage. There is a small area of infiltrating hemorrhage within the bilateral inguinal regions, left slightly greater than right. No fluid collection or adenopathy is seen. IMPRESSION: Bilateral small inguinal hemorrhage without discrete hematoma. No evidence of retroperitoneal hematoma. Reviewed, Interpreted and Dictated by River Flores MD Transcribed by Pat Garcia Authenticated and [facility]
[2022-03-17 10:52] LABS: Vancomycin,Trough 14.1 ug/mL (5.0-10.0)
--- NOTE | 2022-03-17 11:29 | EXP.PHA.CONS ---
Pharmacy Consult Date: 03/17/22 Time: 11:29 Referring provider: DR. KELLEY Reason for Consult:: VANCOMYCIN DOSING Allergies Allergy/AdvReac Type Severity Reaction Status Date / Time Sulfa (Sulfonamide Allergy Severe rash; Verified 04/13/20 13:35 Antibiotics) itchy; trouble breathing Home Medications Medication Instructions Recorded Confirmed Type atorvastatin 20 mg tablet 20 mg PO HS Cholesterol 03/12/22 03/12/22 History clindamycin HCl 300 mg capsule 300 mg PO TID Infection 03/12/22 03/12/22 History metformin 500 mg tablet 1,000 mg PO BID Diabetes 03/12/22 03/12/22 History paroxetine HCl 40 mg tablet (Paxil) 40 mg PO DAILY Depression 03/12/22 03/12/22 History New Prescriptions to Start Prescriptions: Height: 1.63 m Weight: 57.635 kg Laboratory Results:: Laboratory Results - last 24 hr 03/16/22 11:56: Activated Clotting Time 212 H* 03/16/22 12:32: Activated Clotting Time 176 H* 03/16/22 16:56: POC Glucose 180 H 03/16/22 19:42: APTT 44.7 H 03/16/22 20:11: POC Glucose 252 H 03/17/22 03:15: APTT 92.2 H* 03/17/22 09:55: APTT 62.6 H* 03/17/22 09:55: Hgb 9.1 L, Hct 27.2 L 03/17/22 09:55: Sodium 138, Potassium 3.7, Chloride 104, Carbon Dioxide 24, Anion Gap 13.7, BUN 13 D, Creatinine 0.60, Estimated Creat Clear 52, Estimated GFR 101, Est GFR ( Amer) 122, Glucose 202 H, Calcium 7.5 L 03/17/22 09:55: Vancomycin Trough 14.1 H Medical History: Medical History (Updated 03/16/22 @ 09:05 by Catina Grande APRN) Anxiety Diabetes mellitus, type 2 Hypertension Assessment and Plan Assessment and plan all Dx Assessment and Plan for all problems:: PATIENT'S VANCOMYCIN TROUGH LEVEL WAS 14.1 MCG/ML TODAY. RECOMMEND PATIENT CONTINUE WITH VANCOMYCIN 1 GM Q12H AT THIS TIME.
[2022-03-17 11:33] VITALS: BP 109/65; PULSE 78; RESP 18; TEMP 36.8; O2SAT 98
[2022-03-17 12:15] LABS: POC Glucose,Bedside 206 (70-110)
--- NOTE | 2022-03-17 13:30 | PC.NURSE ---
Called Ernesto Sanders about CTA results he stated the he was fine with her going home.
--- NOTE | 2022-03-17 13:32 | PC.NURSE ---
Spoke with Ernesto Sanders he stated that it was fine to D?C heparin
--- NOTE | 2022-03-17 14:45 | HMH.PHACL ---
[facility] Manager Process Discharge Med Tab Machine Operator: Gabbie Puri has received discharge medication counseling on the following medications: Patient was started on Plavix 75 mg daily and aspirin 81 mg daily. Patient was already taking atorvastatin 20 mg hs.
[2022-03-17 19:35] LABS: POC Glucose,Bedside 205 (70-110)
--- NOTE | 2022-03-19 23:06 | EXP.DC.SUM ---
General Admission date:: 03/12/22 Discharge date: 03/17/22 HPI HPI HPI: Ms. Puri is a 61-year-old female patient with a history of type II diabetes mellitus on insulin, hypertension, and chronic right foot wounds who presented to [facility] emergency room for treatment with increasing pain in the right foot.? Following is documentation from the ER: She is diabetic for 30 years.? She began having sores on her right foot in June.? She apparently was initially treated with fungal creams.? Her did not become aware of any sores on her foot until November when they were in [place].? He first noticed a sore on the lateral aspect of her foot in the region of the fifth metatarsal head.? She went to 3 different doctors while in [place] but continued to worsen each time.? He eventually convinced her to come back to the [facility] for treatment.? On the way back they stopped at an emergency department in [place].? states that the physician wanted to admit her to the hospital, but they declined, preferring instead to come back to [place].? She was started on clindamycin while in [place].? She denies fever.? She does have pain in the foot, generally worse at night.? She has never had previous diabetic foot ulcers. With exam in the emergency room temp was 98.2.? White blood cell count was elevated at 14,600.? C-reactive protein was elevated at 99.7.? Blood sugar was 374.? She was started on vancomycin and cefepime.? She also received a dose of piperacillin.? She was then admitted for further evaluation and treatment. This a.m. patient was sleeping soundly and upon awakening states she had severe pain in her right foot.? She was able to walk on it to obtain list of medicines.? She speaks in a broken Luxembourgish which makes it difficult to totally understand her.? No family is at bedside.? She states the wound has been there since June and started out as a fungus. Hospital Course Hospital Course Hospital Course: A CT of the foot was ordered and podiatry was consulted. She was started on vancomycin and cefepime as well as sliding scale insulin and pain medication. The CT showed nothing acute. She did have ABIs showing advanced infrapopliteal disease on the left and diffuse peripheral vascular disease on the right. The right foot wound was cleaned and a Betadine soaked dressing was applied. The patient's nails were debrided but no wound debridement was done. Podiatry discussed with the patient that she had cellulitis with gangrene and that the treatment was antibiotics. Typically she would have debridement as part of her wound care, however given the extent of the gangrene and PAD, they could not debride until she had adequate blood flow. Cardiology was consulted for runoff. They also ordered an echo which showed an EF of 55% with grade 1 diastolic dysfunction. There was a thickened and calcified aortic valve without aortic stenosis. A lower extremity angiogram was performed on the right and she had successful percutaneous revascularization of an acute on chronic occluded right popliteal artery with a stent. Podiatry did not want to perform any surgery due to dry gangrene. They wanted to allow time for her foot to demarcate and try to heal on its own. She did began having more pain in the right foot as blood flow had been restored. Podiatry felt she could be discharged and follow-up with them in 1 to 2 weeks. They recommended 10 days of oral Bactrim or clindamycin to cover the right foot cellulitis. Rolling walker was ordered for home use. The patient began having numbness and cold sensations in the left foot. Cardiology ordered a CT angiogram of the left groin. The CTA of the left femoral with lower extremity runoff showed focal short segment occlusion of the proximal left SFA suspected to be acute with tandem proximal left SFA stenosis of approximately 70%. They suspected left profundal thromboembolic disease. She was taken back to
== END 2022-03-17 16:10 | disposition home or self-care (01) | DRG 253 ==
LOC: UTC 11:54 → ER 13:27 → 2ND 16:18
PROVIDERS: Internal Medicine; Nurse Practitioner Family; Physician Assistant; Podiatrist; Admitting Provider Family Medicine; Emergency Provider Emergency Medicine; PCP Family Medicine; Visit Provider Family Medicine
PROC: 047L34Z Dilation of Left Femoral Artery with Drug-eluting Intraluminal Device, Percutaneous Approach (ICD-10-PCS; principal; 2022-03-16 07:45)
DX: E11.52 Type 2 diabetes mellitus with diabetic peripheral angiopathy with gangrene (principal); I70.263 Atherosclerosis of native arteries of extremities with gangrene, bilateral legs; I70.92 Chronic total occlusion of artery of the extremities; L03.115 Cellulitis of right lower limb; E11.621 Type 2 diabetes mellitus with foot ulcer; I70.213 Atherosclerosis of native arteries of extremities with intermittent claudication, bilateral legs; L97.519 Non-pressure chronic ulcer of other part of right foot with unspecified severity; Z79.84 Long term (current) use of oral hypoglycemic drugs; I77.1 Stricture of artery; F17.210 Nicotine dependence, cigarettes, uncomplicated; L60.3 Nail dystrophy
CPT/HCPCS: 36415; 37226; 73630; 73700; 73706; 74176; 80048; 80061; 80202; 82962; 83036; 83605; 85007; 85014; 85018; 85025; 85048; 85049; 85347; 85610; 85651; 85730; 86140; 87040; 87070; 87077; 87186; 87205; 93306; 93923; 97162; 99152; 99153; 99285; C1725; C1760; C1766; C1769; C1876; C1894; C9803; J1644; J3370; Q9966; Q9967; U0003; U0005

== ENCOUNTER 2022-03-24 08:08 | Emergency (ER) | payer OTHER, SELFPAY ==
[2022-03-24] VITALS (10 sets, daily range): BP systolic 116–191; BP diastolic 74–95; PULSE 74–95; RESP 18–19; TEMP 37.1–37.3; O2SAT 96–99; BMI 27.1
--- NOTE | 2022-03-24 08:51 | XR_ITS ---
FINAL REPORT CLINICAL HISTORY: r foot infected diabetic wound COMPARISON: March 12, 2022 FINDINGS: 3 views of the right foot were obtained. There is no acute fracture or dislocation. There are areas of soft tissue air in the lateral rearfoot, lateral midfoot, and lateral forefoot that may represent soft tissue defect/ulcer. There is a 4 mm calcification versus is foreign body in the anterolateral foot. There is diffuse soft tissue swelling. Vascular calcifications are present. No bony erosions are identified. IMPRESSION: Areas of soft tissue air may represent soft tissue defect/ulcer. 4 mm calcification versus foreign body in the anterolateral foot. No bony erosions. Reviewed, Interpreted and Dictated by Dominic Mcclendon III, MD Transcribed by Manny Rainey Authenticated and [facility]
--- NOTE | 2022-03-24 08:51 | XR_ITS ---
FINAL REPORT CLINICAL HISTORY: r foot infected diabetic wound FINDINGS: 3 views of the right ankle were obtained. There is no acute fracture or dislocation. There appears to be a soft tissue defect of the lateral rearfoot. There is a 4 mm calcification versus is foreign body in the anterolateral foot. There is diffuse soft tissue swelling. Vascular calcifications are present. No bony erosions are identified. IMPRESSION: Diffuse soft tissue swelling with calcification versus foreign body in the anterolateral foot. No bony erosions. Reviewed, Interpreted and Dictated by Dominic Mcclendon III, MD Transcribed by Manny Rainey Authenticated and . [facility]
--- NOTE | 2022-03-24 08:54 | HMH.EDGENADL ---
Discharge Plan Disposition Patient Disposition: Xfer Short-Term Hosp Condition: Fair Chief Complaint: Skin/Abscess/Foreign Body Prescriptions Prescriptions: No Action metformin 500 mg Tablet 1,000 mg PO BID atorvastatin 20 mg Tablet 20 mg PO HS paroxetine HCl [Paxil] 40 mg tablet 40 mg PO DAILY clopidogrel 75 mg Tablet 75 mg PO DAILY Qty: 30 0RF gabapentin 300 mg Capsule 300 mg PO BID Qty: 30 0RF aspirin 81 mg Tablet,Chewable 81 mg PO DAILY Qty: 30 0RF ibuprofen 600 mg Tablet 600 mg PO Q8HP PRN (Reason: MILD PAIN OR FEVER) Qty: 30 0RF oxycodone-acetaminophen 7.5-325 mg Tablet 1 ea PO Q6HP PRN (Reason: Moderate To Severe Pain) Qty: 12 0RF clindamycin HCl 300 mg Capsule 300 mg PO TID Qty: 30 0RF Referrals Follow up/Referrals: Abdi Kapoor MD [Primary Care Provider] - See instructions Clinical Impressions Clinical Impression: Gangrene of foot, Cellulitis Instructions Patient Instructions: DI for Skin Abscess Discharge ED Provider: Sina Escobar General Adult HPI General Chief complaint: Skin/Abscess/Foreign Body Stated complaint: Possible RT foot infection Time Seen by Provider: 03/24/22 08:50 History of Present Illness HPI narrative: Patient is a 61-year-old female with past medical history of abi-yhifruc-nblcepmvb diabetes, right-sided diabetic foot wound, hypertension who presents to the emergency department for evaluation of right foot wound. Since December patient has had right sided diabetic foot wound however over the last 48 hours it has acutely worsened with associated ankle swelling, severe pain, purulence, worsening skin debridement. This is refractory to Keflex. Patient denies fevers, abdominal pain, chest pain, other acute complaints at this time. Related Data Home Medications Medication Instructions Recorded Confirmed atorvastatin 20 mg tablet 20 mg PO HS Cholesterol 03/12/22 03/12/22 metformin 500 mg tablet 1,000 mg PO BID Diabetes 03/12/22 03/12/22 paroxetine HCl 40 mg tablet (Paxil) 40 mg PO DAILY Depression 03/12/22 03/12/22 Previous Rx's Medication Instructions Recorded aspirin 81 mg chewable tablet 81 mg PO DAILY #30 tabs 03/17/22 clindamycin HCl 300 mg capsule 300 mg PO TID Infection #30 caps 03/17/22 clopidogrel 75 mg tablet 75 mg PO DAILY #30 tabs 03/17/22 gabapentin 300 mg capsule 300 mg PO BID #30 caps 03/17/22 ibuprofen 600 mg tablet 600 mg PO Q8HP PRN MILD PAIN OR 03/17/22 FEVER #30 tabs oxycodone-acetaminophen 7.5 mg-325 1 ea PO Q6HP PRN Moderate To 03/17/22 mg tablet Severe Pain #12 tabs Allergies Allergy/AdvReac Type Severity Reaction Status Date / Time Sulfa (Sulfonamide Allergy Severe rash; Verified 04/13/20 13:35 Antibiotics) itchy; trouble breathing PFSH PFS Medical History Anxiety Diabetes mellitus, type 2 Hypertension Surgical History History of cholecystectomy Family History Other Diabetes Family history of hyperlipidemia Family history of hypertension Social History (Updated 03/12/22 @ 17:05 by Lopez Boogie RN) Smoking Status: Current every day smoker alcohol intake: never substance use type: denies use current occupational status: employed Travel in the last 8 weeks: Outside the [facility] number of children: 2 ROS Obtained: Yes All systems reviewed & no additional complaints except as documented Physical Exam General General appearance: alert and in no apparent distress Head Head exam: atraumatic and normocephalic Eye Eye exam: Present PERRL and EOMI ENT ENT exam: Present mucous membranes moist Neck Neck exam: Present normal inspection Chest Chest inspection: Present normal inspection and symmetric chest wall rise Respiratory Respiratory exam: Present normal lung sounds b
--- NOTE | 2022-03-24 09:01 | PC.NURSE ---
notified pharmacy of vancomycin consult, spoke with enoc
--- NOTE | 2022-03-24 09:19 | PC.NURSE ---
rad at for portable xrays
[2022-03-24 09:27] LABS: Chloride 98 mmol/L (98-107); Sodium 138 mmol/L (136-145)
[2022-03-24 09:28] LABS: Potassium 3.8 mmoL/L (3.5-5.1)
[2022-03-24 09:30] LABS: Alanine Aminotransferase 20 U/L (12-78); Albumin Level 3.8 g/dl (3.5-5.0); Albumin/Globulin Ratio 1.2 (1.1-1.8); Alkaline Phosphatase 176 U/L (38-126); Anion Gap 14.8 mEq/L (5-15); Aspartate Amino Transferase 22 U/L (14-36); Bilirubin,Total 0.4 mg/dl (0.2-1.3); Blood Urea Nitrogen 5 mg/dl (7-17); Calcium 9.1 mg/dl (8.4-10.2); Carbon Dioxide 29 mmol/L (22.0-30.0); Creatinine Clearance Estimated 61 mL/min (50-200); Estimated Glomerular Filt Rate 161 ml/min (>60); GFR (African American) 195 ML/MIN (>60); Globulin 3.3 g/dL (1.3-3.2); Glucose 280 mg/dl (74-100); Total Protein,Serum 7.1 g/dl (6.3-8.2)
[2022-03-24 09:31] LABS: Basophils # 0.1 K/mm3 (0-0.2); Basophils % 0.7 % (0.1-2.0); Eosinophils # 0.3 K/mm3 (0.0-0.4); Eosinophils % 2.4 % (0.1-12.0); Hematocrit 33.6 % (37.0-47.0); Hemoglobin 10.6 g/dL (12.2-16.2); Lymphocytes # 2.2 K/mm3 (0.7-4.5); Lymphocytes % 16.1 % (10-50); Mean Corpuscular HGB Conc 31.4 g/dL (31.8-35.4); Mean Corpuscular Hemoglobin 30.1 pg (27.0-31.2); Mean Corpuscular Volume 95.9 fl (81-99); Mean Platelet Volume 7.7 fl (7.4-10.4); Monocytes # 0.8 K/mm3 (0.1-1.0); Monocytes % 5.6 % (1.7-9.3); Neutrophils # 10.5 K/mm3 (1.8-7.8); Neutrophils % 75.2 % (37.0-80.0); Platelet Count 579 K/mm3 (142-424); Red Cell Distribution Width 13.5 % (11.5-17.5); White Blood Count 13.9 K/mm3 (4.8-10.8)
[2022-03-24 09:35] LABS: Lactic Acid 1.2 mmol/L (0.7-2.1)
[2022-03-24 09:36] LABS: C-Reactive Protein 69.9 mg/L (0-4)
--- NOTE | 2022-03-24 09:39 | PC.NURSE ---
per carmela in pharmacy do not run cefepime together with LR. Cefepime started and will start LR after cefepime is complete
--- NOTE | 2022-03-24 10:13 | PC.NURSE ---
covid swab sent to lab at this time cefepime infusion finished, iv line flushed and LR started
--- NOTE | 2022-03-24 10:13 | PC.NURSE ---
calling [facility] for transfer center
[2022-03-24 10:17] LABS: Coronavirus 19, PCR Not Detected (NotDetected); Influenza A, PCR Not Detected (NotDetected); Influenza B, PCR Not Detected (NotDetected)
--- NOTE | 2022-03-24 10:22 | PC.NURSE ---
ER at updating pt on POC (waiting patient information coordinator back from [facility] )
--- NOTE | 2022-03-24 10:26 | PC.NURSE ---
confirmed compatability of vancomycin and LR with Beau in pharmacy
--- NOTE | 2022-03-24 10:26 | PC.NURSE ---
speaking to [facility]
--- NOTE | 2022-03-24 10:27 | PC.NURSE ---
[facility] declined pt at this time. wants to [facility] to try for transfer
--- NOTE | 2022-03-24 10:29 | PC.NURSE ---
Dr Escobar speaking with Dr fields
--- NOTE | 2022-03-24 10:34 | PC.NURSE ---
speaking to dr fields
[2022-03-24 10:40] LABS: Erythrocyte Sedimentation Rate > 140 mm/hr (0-30)
--- NOTE | 2022-03-24 10:46 | PC.NURSE ---
dr. fields at BS
--- NOTE | 2022-03-24 10:57 | PC.NURSE ---
dr fields reports she is going to consult with cardiology and call back to speak to
--- NOTE | 2022-03-24 11:12 | CT_ITS ---
FINAL REPORT CLINICAL HISTORY: gangrene R foot FINDINGS: CT RIGHT FOOT WITHOUT CONTRAST TECHNIQUE: Axial, reformatted, and 3D images were obtained of the right foot. This study was performed with techniques to keep radiation doses as low as reasonably achievable, (ALARA). Individualized dose reduction techniques using automated exposure control or adjustment of mA and/or kV according to the patient's size were employed. FINDINGS: Patient motion decreases the sensitivity of the exam. No fracture is identified. There is no bony erosion. There is a soft tissue calcification or foreign body in the anterior lateral ankle soft tissues. There is circumferential soft tissue edema or cellulitis. Vascular calcifications are noted. IMPRESSION: Soft tissue edema or cellulitis. Soft tissue calcification or foreign body in the anterior lateral ankle soft tissues. Reviewed, Interpreted and Dictated by Dominic Mcclendon III, MD Transcribed by Ana Tang Authenticated and [facility]
--- NOTE | 2022-03-24 11:19 | PC.NURSE ---
dr cohen and dr fields at the bedside. reports they want a CT before a decision is made
--- NOTE | 2022-03-24 11:51 | PC.NURSE ---
pt to ct at this time
--- NOTE | 2022-03-24 12:23 | PC.NURSE ---
pt back from ct
--- NOTE | 2022-03-24 12:33 | PC.NURSE ---
vancomycin still infusing with no complications.
--- NOTE | 2022-03-24 13:11 | PC.NURSE ---
pt updated on POC. awaiting CT report
--- NOTE | 2022-03-24 13:55 | PC.NURSE ---
speaking to kristine avina RN r/t pt's foot
--- NOTE | 2022-03-24 14:01 | PC.NURSE ---
called [facility] for possible Transfer
--- NOTE | 2022-03-24 14:04 | PC.NURSE ---
prelim report given to
--- NOTE | 2022-03-24 14:33 | PC.NURSE ---
placed call to vascular surgery at [facility]
--- NOTE | 2022-03-24 15:10 | PC.NURSE ---
placed call to [facility] for transfer, spoke with 4 different people , they did not know who we spoke too and had no record of it, Logistics is trying to figure it out.
--- NOTE | 2022-03-24 15:26 | PC.NURSE ---
efrem in logistics requested facesheet and advised the hospitalist would call back, pt was accepted by vascular surgeon Dr Blackwell.
--- NOTE | 2022-03-24 15:32 | PC.NURSE ---
at the bedside to update pt on POC
--- NOTE | 2022-03-24 15:41 | PC.NURSE ---
[facility] called to confirm that pt is on waiting list, Dr aleman accepted and awaiting hospitalist
--- NOTE | 2022-03-24 15:48 | PC.NURSE ---
[facility] dr may
--- NOTE | 2022-03-24 16:50 | PC.NURSE ---
spoke with enoc in pharmacy who states pt will not be due for abx until 2099.
--- NOTE | 2022-03-24 16:56 | PC.NURSE ---
pt logistics called with bed assignment for pt. [facility] unit 2C Room 2317 number for report [phone]
--- NOTE | 2022-03-24 17:09 | PC.NURSE ---
called report to [facility], [facility] called for transport
--- NOTE | 2022-03-24 17:09 | PC.NURSE ---
[facility] called for transfer to [facility].
--- NOTE | 2022-03-24 17:26 | PC.NURSE ---
pt reports pain. MD notified. verbal order for pain medication given from provider.
--- NOTE | 2022-03-24 23:58 | PC.NURSE ---
Pharmacy at [facility] called wanting to confirm antibiotics received and time delivered.
== END 2022-03-24 17:42 | disposition short-term general hospital (02) ==
PROVIDERS: Emergency Provider Emergency Medicine; PCP Family Medicine
DX: E11.52 Type 2 diabetes mellitus with diabetic peripheral angiopathy with gangrene (principal); I96 Gangrene, not elsewhere classified; Z79.84 Long term (current) use of oral hypoglycemic drugs; Z79.899 Other long term (current) drug therapy; F41.9 Anxiety disorder, unspecified; I10 Essential (primary) hypertension; Z72.0 Tobacco use
CPT/HCPCS: 73610; 73630; 73700; 80053; 83605; 85025; 85651; 86140; 87040; 96365; 96367; 96368; 96375; 99285; C9803; U0003; U0005

== ENCOUNTER 2022-11-19 12:26 | Inpatient (IN) | payer BC, OTHER, SELFPAY ==
[2022-11-19] VITALS (10 sets, daily range): BP systolic 135–182; BP diastolic 62–85; PULSE 64–92; RESP 16–20; TEMP 36.4–36.7; O2SAT 98–100; BMI 25.7; BMI 25.8
--- NOTE | 2022-11-19 12:44 | PC.NURSE ---
PT TO XR
--- NOTE | 2022-11-19 12:47 | XR_ITS ---
PROCEDURE INFORMATION: Exam: XR Right Foot Exam date and time: 11/19/2022 12:44 PM Age: 62 years old Clinical indication: Injury or trauma; Fall; Blunt trauma; Foot; Right; Prior surgery; Surgery date: 6+ months; Surgery type: Amputations? ; Patient HX: Diabetic; Additional info: Fall, swelling TECHNIQUE: Imaging protocol: Radiologic exam of the right foot. Views: 3 or more views. COMPARISON: CT FOOT RT WO CON 03/24/2022 11:52 AM FINDINGS: Bones/joints: Prior amputation distal aspect 1st metatarsal and mid shaft 5th metatarsal. Slightly comminuted involving the distal aspect 2nd proximal phalanx extending to the articular surface. Remaining osseous structures are intact. Joint surfaces are otherwise intact. Soft tissues: Diffuse vascular calcifications within the soft tissues. IMPRESSION: 1. Acute slightly comminuted fracture distal aspect 2nd proximal phalanx. 2. Evidence of prior amputation 1st and 5th metatarsals.
--- NOTE | 2022-11-19 12:47 | XR_ITS ---
PROCEDURE INFORMATION: Exam: XR Right Ankle Exam date and time: 11/19/2022 12:46 PM Age: 62 years old Clinical indication: Injury or trauma; Fall; Blunt trauma; Ankle; Right; Patient HX: Diabetic; Additional info: Fall, swelling TECHNIQUE: Imaging protocol: Radiologic exam of the right ankle. Views: 3 or more views. COMPARISON: CR XR ANKLE RT MIN 3V 03/24/2022 9:27 AM FINDINGS: Bones/joints: Osseous structures are intact. No fracture or malalignment. Joint surfaces preserved. Soft tissues: Moderate soft tissue swelling adjacent to the lateral malleolus. Other findings: TheFINDINGS: IMPRESSION: Soft tissue swelling lateral malleolus, otherwise negative exam.
[2022-11-19 12:52] LABS: Basophils # 0.1 K/mm3 (0-0.2); Basophils % 0.4 % (0.1-2.0); Eosinophils # 0.4 K/mm3 (0.0-0.4); Eosinophils % 2.2 % (0.1-12.0); Hematocrit 40.7 % (37.0-47.0); Hemoglobin 12.6 g/dL (12.2-16.2); Lymphocytes # 2.4 K/mm3 (0.7-4.5); Lymphocytes % 13.2 % (10-50); Mean Corpuscular Hemoglobin 27.5 pg (27.0-31.2); Mean Corpuscular Volume 88.8 fl (81-99); Mean Platelet Volume 8.3 fl (7.4-10.4); Monocytes # 0.6 K/mm3 (0.1-1.0); Monocytes % 3.4 % (1.7-9.3); Neutrophils # 14.8 K/mm3 (1.8-7.8); Neutrophils % 80.9 % (37.0-80.0); Platelet Count 564 K/mm3 (142-424); Red Blood Count 4.58 M/mm3 (4.20-5.40); Red Cell Distribution Width 15.1 % (11.5-17.5); White Blood Count 18.3 K/mm3 (4.8-10.8)
[2022-11-19 12:57] LABS: Alanine Aminotransferase 21 U/L (12-78); Albumin Level 3.7 g/dl (3.5-5.0); Alkaline Phosphatase 175 U/L (38-126); Anion Gap 16.2 mEq/L (5-15); Aspartate Amino Transferase 23 U/L (14-36); Bilirubin,Total 0.3 mg/dl (0.2-1.3); Blood Urea Nitrogen 15 mg/dl (7-17); Calcium 8.9 mg/dl (8.4-10.2); Carbon Dioxide 26 mmol/L (22.0-30.0); Chloride 98 mmol/L (98-107); Creatinine Clearance Estimated 59 mL/min (50-200); Estimated Glomerular Filt Rate 124 ml/min (>60); GFR (African American) 150 ML/MIN (>60); Globulin 3.6 g/dL (1.3-3.2); Glucose 357 mg/dl (74-100); Potassium 4.2 mmoL/L (3.5-5.1); Sodium 136 mmol/L (136-145); Total Protein,Serum 7.3 g/dl (6.3-8.2)
[2022-11-19 12:58] LABS: MANUAL DIFFERENTIAL MANUAL DIFFERENTIAL (MANUAL DIFF)
[2022-11-19 12:59] LABS: Lactic Acid 1.6 mmol/L (0.7-2.1)
[2022-11-19 13:02] LABS: C-Reactive Protein 129.4 mg/L (0-4)
--- NOTE | 2022-11-19 13:07 | PC.NURSE ---
pt return from xray
[2022-11-19 13:11] LABS: Eosinophils % 1 % (0-3); Hypochromasia 1+; Lymphocytes % 20 % (10-50); Monocytes % 5 % (2-9); Neutrophils % 74 % (42-76); Ovalocytes 1+; Platelet Estimate Slight Increase; Total Cells Counted 100
[2022-11-19 13:16] LABS: Procalcitonin 0.103 ng/mL (0.0-2.0)
[2022-11-19 13:34] LABS: Erythrocyte Sedimentation Rate 76 mm/hr (0-30)
--- NOTE | 2022-11-19 14:13 | PC.NURSE ---
DR MTZ AT BEDSIDE
--- NOTE | 2022-11-19 14:22 | HMH.EDGENADL ---
Discharge Plan Disposition Patient Disposition: Admitted Condition: Fair Prescriptions Prescriptions: No Action metformin 500 mg Tablet 1,000 mg PO BID paroxetine HCl [Paxil] 40 mg tablet 40 mg PO DAILY oxycodone-acetaminophen 7.5-325 mg Tablet 1 ea PO Q6HP PRN (Reason: Moderate To Severe Pain) Qty: 12 0RF Referrals Follow up/Referrals: Amy Smith APRN [Primary Care Provider] - See instructions Clinical Impressions Clinical Impression: Diabetic foot ulcer, Foot fracture, Diabetic infection of right foot Discharge ED Provider: Harvey (ED)Shay General Adult HPI General Chief complaint: Extremity Injury, Lower Stated complaint: right foot pain Time Seen by Provider: 11/19/22 14:06 Mode of Arrival: Wheelchair Limitations: No Limitations Description of Symptoms (Recalled from ER Triage Doc. by RN): PT C/O RIGHT FOOT AND ANKLE PAIN. PT HAD AMPUTATION TO RIGHT GREAT TOE 03/2022. SWELLING, REDNESS AND DISCOLORATION TO RIGHT FOOT/ANKLE. + PULSES WITH DOPPLER. PT DENIES FEVER, HAS NOT BEEN TAKING ALL HOME MEDS. History of Present Illness HPI narrative: 62-year-old female presenting to the emergency department with color changes, pain to the right foot. Symptoms have been going on and off for the last few weeks, seem worse now than previously. She has noticed redness to her entire foot. She has a wound near her ankle. She suffers from diabetes and significant neuropathy. She had partial amputations of the great toe and pinky toe in March 2022 with a staff respiratory therapist at [facility]. PCP is Dr. Mandy Smith. Blood glucose has been around 200. Shehas had minor injuries to her foot. Related Data Home Medications Medication Instructions Recorded Confirmed metformin 500 mg tablet 1,000 mg PO BID Diabetes 03/12/22 11/19/22 paroxetine HCl 40 mg tablet (Paxil) 40 mg PO DAILY Depression 03/12/22 11/19/22 Previous Rx's Medication Instructions Recorded oxycodone-acetaminophen 7.5 mg-325 1 ea PO Q6HP PRN Moderate To 03/17/22 mg tablet Severe Pain #12 tabs Allergies Allergy/AdvReac Type Severity Reaction Status Date / Time Sulfa (Sulfonamide Allergy Severe rash; Verified 04/13/20 13:35 Antibiotics) itchy; trouble breathing [facility] Disclaimer: The information contained in this section may have been updated after the patient was seen, as this information can be updated by other users. Medical History (Updated 11/19/22 @ 15:01 by Alia Corley DO) Amputee, great toe Anxiety Diabetes mellitus, type 2 Hypertension Keratosis Surgical History H/O section History of cholecystectomy Family History Other Diabetes Family history of hyperlipidemia Family history of hypertension Social History Smoking Status: Current every day smoker alcohol intake: never substance use type: denies use current occupational status: employed Travel in the last 8 weeks: Outside the [facility] number of children: 2 ROS Obtained: Yes All systems reviewed & no additional complaints except as documented Constitutional Constitutional: Denies anorexia, Denies body ache, Denies fever(s), Denies headache(s) and Reports weakness Eyes Eyes: Denies blurry vision and Denies diplopia ENT Ears, Nose, Mouth, and Throat: Denies headache(s) Cardiovascular Cardiovascular: Denies chest pain, Reports leg ulcers and Denies palpitations Respiratory Respiratory: Denies cough and Denies wheezing Gastrointestinal Gastrointestingal: Denies abdominal pain or vomiting Musculoskeletal Musculoskeletal: Denies back pain, Reports deformity, Reports joint stiffness, Denies joint swelling, Reports muscle weakness and Reports numbness Integumentary/Breasts Skin/Breast: Reports redness, Reports sores and Reports wou
--- NOTE | 2022-11-19 15:18 | PC.NURSE ---
DR MTZ AT BEDSIDE TO UPDATE PT AND SPOUSE FOR ADMISSION
[2022-11-19 15:19] LABS: Coronavirus 19, PCR Not Detected (NotDetected); Influenza A, PCR Not Detected (NotDetected); Influenza B, PCR Not Detected (NotDetected)
--- NOTE | 2022-11-19 15:31 | PC.NURSE ---
DR MTZ SPEAKING WITH DR LONG FOR ADMISSION
--- NOTE | 2022-11-19 15:35 | PC.NURSE ---
notified beam house inspector of admission
--- NOTE | 2022-11-19 15:48 | EXP.HP ---
History of Present Illness *Admission Date: 11/19/22 *Reason for visit:: Right foot swelling and pain *History of present illness: Ms. Puri is a 62-year-old female who came to the ER today due to several episodes of falling over the past few days. Has noticed increased swelling in her right foot and ankle. She denies any significant pain in the foot but does have significant pain in the ankle and her knee where she fell and hit her knee. Denies any fever or chills. No shortness of breath or chest pain. She has a history significant for peripheral artery disease status post stents in the right lower extremity, poorly controlled diabetes, hypertension, tobacco abuse. History of gangrene a year ago for which her right great toe and fifth digit were amputated at [place]. Only takes metformin for her diabetes. On work-up in the ER, initial labs concerning for leukocytosis, significant elevation of inflammatory markers, and foot imaging showing soft tissue swelling and fracture of second proximal phalangeal on right foot. Medicine was consulted for admission and further management. Of note patient has received vancomycin and Zosyn in the ER for antibiotic coverage. On arrival to the floor, she is pleasant and appears in minimal distress. is at bedside. Right ankle quite swollen. [facility] Disclaimer: The information contained in this section may have been updated after the patient was seen, as this information can be updated by other users. Medical History (Updated 11/19/22 @ 16:53 by Eric Sosa MD) Amputee, great toe Anxiety Diabetes mellitus, type 2 Gangrene of right foot Hypertension Keratosis Surgical History Amputation of right great toe H/O section History of cholecystectomy Family History Diabetes Family history of hypertension Family history of hyperlipidemia Social History Smoking Status: Current every day smoker alcohol intake: never substance use type: denies use current occupational status: employed Travel in the last 8 weeks: Outside the [facility] number of children: 2 Review of Systems Review of Systems Review of systems (narrative): 14 point review of systems performed, pertinent positives and negatives as per HPI Constitutional Constitutional: Denies headache(s) and Reports weakness ENT Ears, Nose, Mouth, and Throat: Denies headache(s) *Musculoskeletal Musculoskeletal: Reports numbness *Neurologic Neurologic: Denies headache(s), Reports numbness and Reports weakness Meds Home Medications and Allergies Home Medications Medication Instructions Recorded Confirmed Type metformin 500 mg tablet 1,000 mg PO BID Diabetes 03/12/22 11/19/22 History paroxetine HCl 40 mg tablet (Paxil) 40 mg PO DAILY Depression 03/12/22 11/19/22 History oxycodone-acetaminophen 7.5 mg-325 1 ea PO Q6HP PRN Moderate To 03/17/22 11/19/22 Rx mg tablet Severe Pain #12 tabs New Prescriptions to Start Prescriptions: Allergies Allergy/AdvReac Type Severity Reaction Status Date / Time Sulfa (Sulfonamide Allergy Severe rash; Verified 04/13/20 13:35 Antibiotics) itchy; trouble breathing Exam Data for Last 24 hours Vital signs and Labs for Last 24 Hours: Temp Pulse Resp BP Pulse Ox 98.0 F 76 18 141/74 H 99 11/19/22 12:28 11/19/22 15:00 11/19/22 15:00 11/19/22 15:00 11/19/22 15:00 Laboratory Results - last 24 hr 11/19/22 12:40: WBC 18.3 H, RBC 4.58, Hgb 12.6, Hct 40.7, MCV 88.8, MCH 27.5, MCHC 31.0 L, RDW 15.1, Plt Count 564 H, MPV 8.3, Neut % (Auto) 80.9 H, Lymph % (Auto) 13.2, [place] % (Auto) 3.4, Eos % (Auto) 2.2, Baso % (Auto) 0.4, Neut # (Auto) 14.8 H, Lymph # (Auto) 2.4, [place] # (Auto) 0.6, Eos # (Auto) 0.4, Baso # (Auto) 0.1, Total Counted 100, Neutrophils % (Manual) 74, L
--- NOTE | 2022-11-19 15:56 | PC.NURSE ---
REPORT GIVEN TO ECONN, RN
[2022-11-19 16:27] LABS: Hemoglobin A1C 10.7 % (4.0-6.0)
--- NOTE | 2022-11-19 16:41 | PC.WOUNDNOTE ---
RT FOOT/ANKLE
[2022-11-19 16:51] LABS: Thyroid Stimulating Hormone 2.02 uIU/mL (0.465-4.68)
--- NOTE | 2022-11-19 16:55 | CT_ITS ---
PROCEDURE INFORMATION: Exam: CT Right Lower Extremity Without Contrast, Foot Exam date and time: 11/19/2022 6:03 PM Age: 62 years old Clinical indication: Pain; Foot; Right; Additional info: Osteo vs cellulitis and fracture TECHNIQUE: Imaging protocol: CT of the right lower extremity without contrast was performed. Exam focused on the foot. Radiation optimization: All CT scans at this facility use at least one of these dose optimization techniques: automated exposure control; mA and/or kV adjustment per patient size (includes targeted exams where dose is matched to clinical indication); or iterative reconstruction. REPORTING DATA: Count of CT and Cardiac NM exams in prior 12 months: This patient has received 4 known CTs and 0 known cardiac nuclear medicine studies in the 12 months prior to the current study. COMPARISON: CT FOOT RT WO CON 03/24/2022 11:52 AM FINDINGS: Bones/joints: There are focal erosions involving the articular margin of the calcaneocuboid joint with adjacent soft tissue thickening that may be due to erosive arthropathy or septic joint. Evidence of prior amputation distal shaft 1st metatarsal with irregularity along the cortical surface at the amputation site and adjacent soft tissue thickening that may be secondary to cortical osteitis/osteomyelitis. There is a sharply demarcated amputation site mid shaft 5th metatarsal with no adjacent soft tissue thickening. There is a slightly comminuted fracture involving the distal aspect of the 2nd proximal phalanx extending to the articular surface. Soft tissues: There is mild generalized soft tissue edema throughout the foot, nonspecific and may be due to cellulitis, venous stasis or systemic factors. IMPRESSION: 1. Cortical irregularity and soft tissue changes at the amputation site 1st metatarsal possibly secondary to cortical osteitis. 2. Focal bony erosions at the calcaneal cuboid articulation that may be due to an erosive arthropathy or septic joint. 3. Prior amputation mid shaft 5th metatarsal that is otherwise unremarkable. 4. Small comminuted intra-articular fracture distal aspect 2nd proximal phalanx. 5. Nonspecific soft tissue edema throughout the right foot as discussed above
[2022-11-19 18:02] LABS: POC Glucose,Bedside 439 (70-110)
--- NOTE | 2022-11-19 18:31 | PC.NURSE ---
pt has been admitted to the floor. She is alert and oriented. appropriate and pleasant. pt reports 3 falls in the last week which have resulted in her r foot and ankle being swollen and red. She has a history of toe amputation x2 in march. reports poorly controlled DM type 2. pt denies any SOA. no c/o Chest pain. lungs are CTA. Spouse @ bedside.
[2022-11-19 20:14] LABS: POC Glucose,Bedside 181 (70-110)
--- NOTE | 2022-11-19 22:35 | PC.NURSE ---
BLISTERS/DISCOLORATION, SWELLING, DECREASED SENSATION AND MOBILITY NOTED RIGHT FOOT. C/O PAIN 8/10 RIGHT FOOT. FOOT COOL TO TOUCH. LEFT FOOT WARM. PATIENT SAYS HANGING LEG DOWN OVER THE SIDE OF BED HELPS WITH THE PAIN. UNABLE TO PALPATE PEDAL PULSES IN RIGHT FOOT. DORSALIS AND INNER TIBIAL PULSES WEAK AND REQUIRED DOPPLER TO LOCATE. OUTTER TIBIAL PUSE NOT LOCATED OR PALPATED. SHAQUILLE CASTELLANOS NOTIFIED.
--- NOTE | 2022-11-19 23:38 | PC.NURSE ---
spoke with bennie cotter about dosing for vancomycin, she stated that she would change the dosing and the frequency to q24hr
[2022-11-20] VITALS (22 sets, daily range): BP systolic 99–168; BP diastolic 59–84; PULSE 66–103; RESP 14–19; TEMP 36.3–37.1; O2SAT 91–99; BMI 27.3
--- NOTE | 2022-11-20 03:19 | PC.NURSE ---
NPO SINCE MN. HAS RECEIVED NORCO 5/325MG PO TWICE THIS SHIFT. HAS GOTTEN RELIEF FROM HIS PAIN IN RIGHT FOOT AT THIS TIME.
[2022-11-20 05:09] LABS: POC Glucose,Bedside 102 (70-110)
--- NOTE | 2022-11-20 06:00 | US_ITS ---
FINAL REPORT CLINICAL HISTORY: PAD, DM FINDINGS: ANKLE-BRACHIAL PRESSURE INDICES Pressure indices are as follows: RIGHT LOWER EXTREMITY: Ankle-brachial pressure index: 0.6 Comments: Findings consistent with [id number] peripheral arterial disease. LEFT LOWER EXTREMITY: Ankle-brachial pressure index: 0.9 Comments: Normal IMPRESSION: Mild to moderate peripheral arterial disease of the right lower extremity. Reviewed, Interpreted and Dictated by Crystal Post MD Transcribed by Love Mathew Authenticated and [facility]
[2022-11-20 07:03] LABS: Basophils % 0.1 % (0.1-2.0); Eosinophils # 0.3 K/mm3 (0.0-0.4); Eosinophils % 2.2 % (0.1-12.0); Hematocrit 36.2 % (37.0-47.0); Hemoglobin 11.6 g/dL (12.2-16.2); Lymphocytes # 0.9 K/mm3 (0.7-4.5); Mean Corpuscular Hemoglobin 28.2 pg (27.0-31.2); Mean Corpuscular Volume 88.1 fl (81-99); Monocytes # 0.5 K/mm3 (0.1-1.0); Monocytes % 3.5 % (1.7-9.3); Neutrophils # 12.9 K/mm3 (1.8-7.8); Neutrophils % 88.2 % (37.0-80.0); Platelet Count 518 K/mm3 (142-424); Red Blood Count 4.11 M/mm3 (4.20-5.40); Red Cell Distribution Width 15.2 % (11.5-17.5); White Blood Count 14.6 K/mm3 (4.8-10.8)
[2022-11-20 07:05] LABS: MANUAL DIFFERENTIAL MANUAL DIFFERENTIAL (MANUAL DIFF)
[2022-11-20 07:11] LABS: Chloride 106 mmol/L (98-107)
[2022-11-20 07:12] LABS: Potassium 4.7 mmoL/L (3.5-5.1); Sodium 139 mmol/L (136-145)
[2022-11-20 07:14] LABS: Alanine Aminotransferase 19 U/L (12-78); Albumin Level 3.2 g/dl (3.5-5.0); Albumin/Globulin Ratio 1.2 (1.1-1.8); Alkaline Phosphatase 130 U/L (38-126); Anion Gap 14.7 mEq/L (5-15); Aspartate Amino Transferase 31 U/L (14-36); Bilirubin,Total 0.3 mg/dl (0.2-1.3); Blood Urea Nitrogen 15 mg/dl (7-17); Calcium 9.1 mg/dl (8.4-10.2); Carbon Dioxide 23 mmol/L (22.0-30.0); Creatinine Clearance Estimated 60 mL/min (50-200); Estimated Glomerular Filt Rate 124 ml/min (>60); GFR (African American) 150 ML/MIN (>60); Globulin 2.7 g/dL (1.3-3.2); Glucose 99 mg/dl (74-100); Total Protein,Serum 5.9 g/dl (6.3-8.2)
[2022-11-20 07:15] LABS: Magnesium 1.7 mg/dl (1.6-2.3)
[2022-11-20 07:28] LABS: Lymphocytes % 8 % (10-50); Monocytes % 5 % (2-9); Neutrophils % 87 % (42-76); Platelet Estimate Moderate Increase; RBC Morphology Normal; Total Cells Counted 100
--- NOTE | 2022-11-20 07:59 | EXP.ORTH.CON ---
Documented by User: Catina Grande, [place] 11/20/22 08:35 History of Present Illness *Admission Date: 11/19/22 *History of present illness: Ms. Puri is a 62-year-old female who came to the ER today due to several episodes of falling over the past few days. Has noticed increased swelling in her right foot and ankle. She denies any significant pain in the foot but does have significant pain in the right ankle. She has a history significant for peripheral artery disease status post stents in the right lower extremity, poorly controlled diabetes, hypertension, tobacco abuse. History of gangrene a year ago for which her right great toe and fifth digit were amputated at [place]. On work-up in the ER, initial labs concerning for leukocytosis, significant elevation of inflammatory markers, and foot imaging showing soft tissue swelling and fracture of second proximal phalangeal on right foot. Patient was admitted for further management. Podiatry was consulted for right foot evaluation and concerns for infection versus fracture. Patient resting in bed alert and oriented. No acute distress. Right foot x-ray, right ankle x-ray, right foot CT, and CHAYO results reviewed and discussed with patient. A surgical consent obtained for right ankle incision and drainage and right foot open bone biopsy. Patient made no request. Keep NPO. [facility] Disclaimer: The information contained in this section may have been updated after the patient was seen, as this information can be updated by other users. Medical History (Updated 11/20/22 @ 09:27 by Paula Maurice DPM) Amputee, great toe Anxiety Diabetes mellitus, type 2 Gangrene of right foot Hypertension Keratosis Surgical History Amputation of right great toe H/O section History of cholecystectomy Family History Diabetes Family history of hypertension Family history of hyperlipidemia Social History Smoking Status: Current every day smoker alcohol intake: never substance use type: denies use current occupational status: employed Travel in the last 8 weeks: Outside the continental [facility] number of children: 2 Review of Systems Constitutional Constitutional: Denies headache(s) and Reports weakness ENT Ears, Nose, Mouth, and Throat: Denies headache(s) *Musculoskeletal Musculoskeletal: Reports numbness *Neurologic Neurologic: Denies headache(s), Reports numbness and Reports weakness Meds Home Medications and Allergies Home Medications Medication Instructions Recorded Confirmed Type metformin 500 mg tablet 1,000 mg PO BID Diabetes 03/12/22 11/19/22 History paroxetine HCl 40 mg tablet (Paxil) 40 mg PO DAILY Depression 03/12/22 11/19/22 History oxycodone-acetaminophen 7.5 mg-325 1 ea PO Q6HP PRN Moderate To 03/17/22 11/19/22 Rx mg tablet Severe Pain #12 tabs New Prescriptions to Start Prescriptions: Allergies Allergy/AdvReac Type Severity Reaction Status Date / Time Sulfa (Sulfonamide Allergy Severe rash; Verified 04/13/20 13:35 Antibiotics) itchy; trouble breathing Ortho Exam (Inpt) Vital signs and Labs for Last 24 Hours: Temp Pulse Resp BP Pulse Ox 98.4 F 76 19 125/64 99 11/20/22 04:00 11/20/22 04:00 11/20/22 04:00 11/20/22 04:00 11/20/22 04:00 Laboratory Results - last 24 hr 11/19/22 12:40: WBC 18.3 H, RBC 4.58, Hgb 12.6, Hct 40.7, MCV 88.8, MCH 27.5, MCHC 31.0 L, RDW 15.1, Plt Count 564 H, MPV 8.3, Neut % (Auto) 80.9 H, Lymph % (Auto) 13.2, [place] % (Auto) 3.4, Eos % (Auto) 2.2, Baso % (Auto) 0.4, Neut # (Auto) 14.8 H, Lymph # (Auto) 2.4, [place] # (Auto) 0.6, Eos # (Auto) 0.4, Baso # (Auto) 0.1, Total Counted 100, Neutrophils % (Manual) 74, Lymphocytes % (Manual) 20, Monocytes % (Manual) 5, Eosinophils % (Manual) 1, Platelet Estimate Slight increase, Hypoc
--- NOTE | 2022-11-20 08:35 | EXP.PHA.CONS ---
Pharmacy Consult Date: 11/20/22 Time: 08:35 Referring provider: DR. LONG Reason for Consult:: VANCOMYCIN DOSING Allergies Allergy/AdvReac Type Severity Reaction Status Date / Time Sulfa (Sulfonamide Allergy Severe rash; Verified 04/13/20 13:35 Antibiotics) itchy; trouble breathing Home Medications Medication Instructions Recorded Confirmed Type metformin 500 mg tablet 1,000 mg PO BID Diabetes 03/12/22 11/19/22 History paroxetine HCl 40 mg tablet (Paxil) 40 mg PO DAILY Depression 03/12/22 11/19/22 History oxycodone-acetaminophen 7.5 mg-325 1 ea PO Q6HP PRN Moderate To 03/17/22 11/19/22 Rx mg tablet Severe Pain #12 tabs New Prescriptions to Start Prescriptions: Height: 1.57 m Weight: 67.358 kg Laboratory Results:: Laboratory Results - last 24 hr 11/19/22 12:40: WBC 18.3 H, RBC 4.58, Hgb 12.6, Hct 40.7, MCV 88.8, MCH 27.5, MCHC 31.0 L, RDW 15.1, Plt Count 564 H, MPV 8.3, Neut % (Auto) 80.9 H, Lymph % (Auto) 13.2, [place]ball % (Auto) 3.4, Eos % (Auto) 2.2, Baso % (Auto) 0.4, Neut # (Auto) 14.8 H, Lymph # (Auto) 2.4, Kimball # (Auto) 0.6, Eos # (Auto) 0.4, Baso # (Auto) 0.1, Total Counted 100, Neutrophils % (Manual) 74, Lymphocytes % (Manual) 20, Monocytes % (Manual) 5, Eosinophils % (Manual) 1, Platelet Estimate Slight increase, Hypochromasia 1+, Ovalocytes 1+, ESR 76 H 11/19/22 12:40: Sodium 136, Potassium 4.2, Chloride 98, Carbon Dioxide 26, Anion Gap 16.2 H, BUN 15, Creatinine 0.50 L, Estimated Creat Clear 59, Estimated GFR 124, Est GFR ( Amer) 150, Glucose 357 H, Calcium 8.9, Total Bilirubin 0.3, AST 23, ALT 21, Alkaline Phosphatase 175 H, C-Reactive Protein 129.4 H, Total Protein 7.3, Albumin 3.7, Globulin 3.6 H, Albumin/Globulin Ratio 1.0 L, Procalcitonin 0.103 11/19/22 12:40: Lactate 1.6 11/19/22 12:40: Hemoglobin A1c 10.7 H 11/19/22 12:40: TSH 2.02 11/19/22 15:09: SARS-CoV-2 (PCR) Not detected, Influenza A Untype (PCR) Not detected, Influenza Type B (PCR) Not detected 11/19/22 17:54: POC Glucose 439 H* 11/19/22 19:57: POC Glucose 181 H 11/20/22 05:00: POC Glucose 102 11/20/22 06:43: WBC 14.6 H, RBC 4.11 L, Hgb 11.6 L, Hct 36.2 L, MCV 88.1, MCH 28.2, MCHC 32.0, RDW 15.2, Plt Count 518 H, MPV 8.0, Neut % (Auto) 88.2 H, Lymph % (Auto) 6.0 L, Kim[place] % (Auto) 3.5, Eos % (Auto) 2.2, Baso % (Auto) 0.1, Neut # (Auto) 12.9 H, Lymph # (Auto) 0.9, Kimball # (Auto) 0.5, Eos # (Auto) 0.3, Baso # (Auto) 0.0, Total Counted 100, Neutrophils % (Manual) 87 H, Lymphocytes % (Manual) 8 L, Monocytes % (Manual) 5, Platelet Estimate Moderate increase, RBC Morphology Normal 11/20/22 06:43: Sodium 139, Potassium 4.7, Chloride 106, Carbon Dioxide 23, Anion Gap 14.7, BUN 15, Creatinine 0.50 L, Estimated Creat Clear 60, Estimated GFR 124, Est GFR ( Amer) 150, Glucose 99 D, Calcium 9.1, Magnesium 1.7, Total Bilirubin 0.3, AST 31 D, ALT 19, Alkaline Phosphatase 130 H, Total Protein 5.9 L, Albumin 3.2 L D, Globulin 2.7, Albumin/Globulin Ratio 1.2 Medical History: Medical History (Updated 11/20/22 @ 08:15 by Catina Grande APRN) Amputee, great toe Anxiety Diabetes mellitus, type 2 Gangrene of right foot Hypertension Keratosis Assessment and Plan Assessment and plan all Dx Assessment and Plan for all problems:: Pharmacokinetic dosing service Objective: Patient: Floor: Age: 62 yo Serum creatinine: 1 mg/dL Height: 61.8 Inches Weight (kg): 67.4 Assessment: IBW (kg): 49.64 Dosing wt(kg): 67.4 Estimated Creatinine clearance (ml/min): 44.5 CRCL method: Cockcroft and Gault using ibw(default). Drug selected: Vancomycin Loading dose (mg): 0 Vd (liters): 53.9 (factor used: 0.8 L/kg) Shaun (hr-1): 0.041 Half life (hrs): 16.91 Recommended dose: 1250 mg Interval: 24 hrs Infusion time (hrs): 2.0 Predicted peak (mcg/mL): 35.6 Predicted trough (mcg/mL): 14.44 Total body weight is being used for vancomycin dosing.
--- NOTE | 2022-11-20 09:30 | ECG_ITS ---
APPROVED REPORT Exam: Resting ECG HR:98 bpm ECG Measurements Heart Rate 98 AXES OK 149 P 5 QRSd 96 QRS 33 QT 331 T 39 QTc 387 Conclusion SINUS RHYTHM NORMAL ECG UNCONFIRMED REPORT Electronically signed by : Bacilio Cesar MD 11/20/2022 21:25:34
--- NOTE | 2022-11-20 10:04 | HMH.PHAINT1 ---
Pharmacy Intervention Comments: Home medication list verified through list from outside pharmacy
--- NOTE | 2022-11-20 10:04 | EXP.ACUTE.PN ---
Subjective *Date: 11/20/22 *Time: 13:00 Interval history: 62 yearold female who came to the ER today due to several episodes of falling over the past few days.? Has noticed increased swelling in her right foot and ankle.? She denies any significant pain in the foot but does have significant pain in the ankle and her knee where she fell and hit her knee.? Denies any fever or chills.? No shortness of breath or chest pain.?PMHX of peripheral artery disease status post stents in the right lower extremity, poorly controlled diabetes, hypertension, and tobacco abuse.? History of gangrene a year ago for which her right great toe and fifth digit were amputated at [place].? Only takes metformin for her diabetes.? On work-up in the ER, initial labs concerning for leukocytosis, significant elevation of inflammatory markers, and foot imaging showing soft tissue swelling and fracture of second proximal phalangeal on right foot.? Medicine was consulted for admission and further management.? Of note patient has received vancomycin and Zosyn in the ER for antibiotic coverage. Podiatry was consutled this A.M and the patient will be taken to OR for right ankle I and D and open bone boipsy. Medical Exam Vital signs and Labs for Last 24 Hours: Vital Signs Temp Pulse Pulse Resp BP BP Pulse Ox 11/20/22 08:00 98.7 F 89 16 150/81 H 97 11/20/22 04:00 98.4 F 76 19 125/64 99 11/19/22 20:00 100 11/19/22 20:00 97.6 F 77 19 160/85 H 100 11/19/22 16:10 98.0 F 77 17 143/71 H 11/19/22 16:19 98.0 F 77 16 143/71 H 100 11/19/22 15:30 73 20 143/70 H 98 11/19/22 15:00 76 18 141/74 H 99 11/19/22 14:30 78 18 149/71 H 98 11/19/22 14:00 64 20 135/62 98 11/19/22 13:30 68 20 143/75 H 99 11/19/22 12:34 89 18 182/82 H 98 11/19/22 12:28 98.0 F 92 H 18 182/82 H 98 Intake and Output 11/19/22 11/20/22 11/20/22 23:59 07:59 15:59 Intake Total 240 / 530 340 / 340 Output Total Balance 239 / 529 339 / 339 Intake: Intake, Oral Amount 240 / 480 240 / 240 Intake, Total IV Amount 100 / 100 Piperacillin/Tazo 3.375 gm In 0 100 / 100 .9 % Sodium Chloride 50 ml @ 100 mls/hr IV Q8H [facility] Rx#: [id number] Output: Output, Urine Amount Other: Number of Unmeasured Voids 06 18 Weight 64.013 kg 67.358 kg 67.358 kg Patient Weight 11/20/22 23:59 Weight 67.358 kg Laboratory Results - last 24 hr 11/19/22 12:40: WBC 18.3 H, RBC 4.58, Hgb 12.6, Hct 40.7, MCV 88.8, MCH 27.5, MCHC 31.0 L, RDW 15.1, Plt Count 564 H, MPV 8.3, Neut % (Auto) 80.9 H, Lymph % (Auto) 13.2, [place] % (Auto) 3.4, Eos % (Auto) 2.2, Baso % (Auto) 0.4, Neut # (Auto) 14.8 H, Lymph # (Auto) 2.4, [place] # (Auto) 0.6, Eos # (Auto) 0.4, Baso # (Auto) 0.1, Total Counted 100, Neutrophils % (Manual) 74, Lymphocytes % (Manual) 20, Monocytes % (Manual) 5, Eosinophils % (Manual) 1, Platelet Estimate Slight increase, Hypochromasia 1+, Ovalocytes 1+, ESR 76 H 11/19/22 12:40: Sodium 136, Potassium 4.2, Chloride 98, Carbon Dioxide 26, Anion Gap 16.2 H, BUN 15, Creatinine 0.50 L, Estimated Creat Clear 59, Estimated GFR 124, Est GFR ( Amer) 150, Glucose 357 H, Calcium 8.9, Total Bilirubin 0.3, AST 23, ALT 21, Alkaline Phosphatase 175 H, C-Reactive Protein 129.4 H, Total Protein 7.3, Albumin 3.7, Globulin 3.6 H, Albumin/Globulin Ratio 1.0 L, Procalcitonin 0.103 11/19/22 12:40: Lactate 1.6 11/19/22 12:40: Hemoglobin A1c 10.7 H 11/19/22 12:40: TSH 2.02 11/19/22 15:09: SARS-CoV-2 (PCR) Not detected, Influenza A Untype (PCR) Not detected, Influenza Type B (PCR) Not detected 11/19/22 17:54: POC Glucose 439 H* 11/19/22 19:57: POC Glucose 181 H 11/20/22 05:00: POC Glucose 102 11/20/22 06:43: WBC 14.6 H, RBC 4.11 L, Hgb 11.6 L, Hct 36.2 L, MCV 88.1, MCH 28.2, MCHC 32.0, RDW 15.2, Plt Count 518 H, MPV 8.0, Neut % (Auto) 88.2 H, Lymph % (Auto) 6.0 L, [place] % (Auto) 3.5, Eos % (Auto)
[2022-11-20 11:47] LABS: POC Glucose,Bedside 158 (70-110)
--- NOTE | 2022-11-20 12:23 | EXP.ANES.CKL ---
[facility] Disclaimer: The information contained in this section may have been updated after the patient was seen, as this information can be updated by other users. Medical History (Updated 11/20/22 @ 09:27 by Paula Maurice DPM) Amputee, great toe Anxiety Diabetes mellitus, type 2 Gangrene of right foot Hypertension Keratosis Surgical History Amputation of right great toe H/O section History of cholecystectomy Family History Diabetes Family history of hypertension Family history of hyperlipidemia Social History Smoking Status: Current every day smoker alcohol intake: never substance use type: denies use current occupational status: employed Travel in the last 8 weeks: Outside the [facility] number of children: 2 [facility] Anesthesia Checklist Patient Identification Patient Identification: Arm Band Structural Data Admitted From: Inpatient Planned Operative Procedure/s: I&D Right Foot Consent for Planned Operative Procedure(s) Verified: Yes Verified Documents: Surgical Consent and History and Physical NPO Status Verified Time NPO: 00:00 Airway Assessment C-Spine Mobility Assessed: Yes TMJ Mobility Assessed: Yes Dentition: Dentures-good fit (removed) Neurological Assessment Level of Consciousness: Awake and Alert Anesthesia Plan Anesthesia Risk discussed: Yes Anesthesia Plan: Verified Anesthesia Type: General
--- NOTE | 2022-11-20 12:58 | EXP.CARD.CON ---
History of Present Illness History of Present Illness Consult date: 11/20/22 Requesting physician: Eric Sosa Consult reason: known to you Chief complaint: Right ankle abscess Additional Medical History:: 1.? Diabetes A. treated for about 30 years 2.? Tobacco use A. half pack per day for 20 years 3.? Right foot ulcer with gangrene, 03/12/2022 A. BMS to acute on chronic occluded right popliteal artery, 03/14/2022. Single-vessel inline flow to the right foot through the anterior tibialis artery with collateralized flow through the posterior tibialis artery and peroneal artery supplying the right foot B. BMS placed to the left common and left superficial femoral artery, 03/16/2022 C. Angioplasty of TPT and GALVANIZER ZINC of RLE, 03/30/2022, [facility] in [facility] D. History of partial amputations of the great toe and pinky toe, 03/25/2022, podiatry at [facility] in [facility] E. S/p Podiatry surgery, 11/20/2022, Right ankle I&D (incision and drainage), Right foot open bone biopsy x2, Right first metatarsal partial ray amputation revision and Right ankle deep wide soft tissue irrigation and debridement, Dr. Paula Maurice. 4.? Hyperlipidemia 5.? Questionable history of hypertension but on no long-term treatment A. Echocardiogram, 03/13/2022, mild LAE, normal LV size, mild concentric LVH, EF 55% with no regional WMA. Grade 1 diastolic dysfunction. Trace MR and TR. Thickened and calcified aortic valve without /AI. History of present illness: Ms. Puri is a 62-year-old female who came to the ER today due to several episodes of falling over the past few days.? Has noticed increased swelling in her right foot and ankle.? She denies any significant pain in the foot but does have significant pain in the ankle and her knee where she fell and hit her knee.? Denies any fever or chills.? No shortness of breath or chest pain.? She has a history significant for peripheral artery disease status post stents in the right lower extremity, poorly controlled diabetes, hypertension, tobacco abuse.? History of gangrene a year ago for which her right great toe and fifth digit were amputated at [place].? Only takes metformin for her diabetes.? On work-up in the ER, initial labs concerning for leukocytosis, significant elevation of inflammatory markers, and foot imaging showing soft tissue swelling and fracture of second proximal phalangeal on right foot.? Medicine was consulted for admission and further management.? Of note patient has received vancomycin and Zosyn in the ER for antibiotic coverage. On arrival to the floor, she is pleasant and appears in minimal distress.? is at bedside.? Right ankle quite swollen. The above per Dr. Sosa H&P Cardiology consulted for evaluation for possible lower extremity angiogram post podiatry procedure. Pt still groggy from surgery/anesthesia. Will discuss recommendations for LE angiogram in AM when is available. [facility] Disclaimer: The information contained in this section may have been updated after the patient was seen, as this information can be updated by other users. Medical History (Updated 11/20/22 @ 09:27 by Paula Maurice DPM) Amputee, great toe Anxiety Diabetes mellitus, type 2 Gangrene of right foot Hypertension Keratosis Surgical History Amputation of right great toe H/O section History of cholecystectomy Family History Diabetes Family history of hypertension Family history of hyperlipidemia Social History Smoking Status: Current every day smoker alcohol intake: never substance use type: denies use current occupational status: employed Travel in the last 8 weeks: Outside the continental [facility] number of children: 2 Review of Systems Review of Systems Review of systems:
--- NOTE | 2022-11-20 14:14 | EXP.OP.NOTE ---
Date of procedure: 11/20/22 Pre-op Diagnosis:: Right ankle abscess Right foot cellulitis Right foot osteomyelitis Post-op Diagnosis:: Same Procedure performed:: Right ankle I&D (incision and drainage) Right foot open bone biopsy x2 Right first metatarsal partial ray amputation revision Right ankle deep wide soft tissue irrigation and debridement Surgeon:: Paula Maurice DPM DETACKER:: Other (Abril) Anesthesia: GETA and local (20 cc of 0.5% Marcaine) Estimated blood loss (mL): 10 Clinical Note:: Patient is a 62-year-old uncontrolled diabetic female who presents 11/19/2022 with complaints of right ankle pain and cellulitis. New images were discussed with the patient. We discussed conservative versus surgical treatment options. We discussed conservative care including continued oral vs IV antibiotics and local wound care versus surgical incision and drainage. Patient understands that they could have wound healing complications including delayed healing and infection. We discussed that if the wound does not heal, it is possible that they may need further debridement. Patient understands if infection spreads into the bone, it may warrant proximal amputation and could result in further loss of digits, loss of partial foot or loss of leg. We discussed the risks and benefits in great detail. Other surgical risks include: prolonged pain and swelling, further infection requiring oral or IV antibiotics, delay in healing of soft tissue or bone, nerve or blood vessel damage, CRPS/RSD, DVT, anesthesia complications, and even . All questions answered. Patient verbalized understanding. Consent obtained. Operative findings:: Changes on x-ray and CT scan to the first metatarsal suspicious for osteomyelitis. CC joint erosive changes on imaging. Bone biopsy performed to the CC joint. Bone was intact with no purulence malodor but soft and crumbly. Specimen sent for bone culture and bone pathology. First metatarsal bone had some cortical erosions distally. The proximal margin appeared to be intact with no evidence of more proximal bone infection. Abscess noted to the right lateral ankle with thick creamy purulent malodorous drainage, 20 cc sent for wound culture. The drainage tracked up the peroneal tendon as well as the syndesmosis approximately 15 cm. The underlying fibula looked to have some cortical erosions and a piece of bone was sent for bone biopsy and culture. Concern for deep ankle infection. Overall prognosis poor due to the PAD and lack of circulation combined with abscess, poor tissue quality and possibility of osteomyelitis. Patient remains high risk for a below-knee amputation. Operative note:: On this date and time the patient was deemed an appropriate surgical candidate. With informed consent time patient was transferred from the preoperative holding area to the operating theater placed on table in a normal supine position. Right lower extremities prepped and draped in normal sterile fashion. No tourniquet utilized. 20 cc of half percent Marcaine plain were infiltrated in regional ankle block. Right foot open bone biopsy: A stab incision was made over the calcaneocuboid joint. Incision approximately 0.2x0.2cm. Blunt dissection carried down to level of bone, 1.5 cm A [employer] needle was used to remove a piece of the calcaneus-cuboid joint. Portion of the bone was sent to micro as culture and the other piece was sent to pathology for bone biopsy. Right foot open bone biopsy, first metatarsal partial ray amputation revision: A separate incision was then made over the dorsal first metatarsal where previous incision was noted to be well-healed. Prior first and fifth partial ray amputation noted. Full-thickness dissection over the distal aspect of the amputation stump. Dissection with to the bone. Distal bone had some cortical changes and irregularity. Saw was used and transected the distal aspect of the amputation site, specimen sent for bone
--- NOTE | 2022-11-20 14:20 | P.PNANES_ITS ---
[facility] Anesthesia Record Part I Anesthesia Record I Intake, IV Amount: 550 Estimated blood loss (mL): 10 Urine output (mL): 0 Blood Pressure: 146/81 SaO2: 91 Pulse Rate: 103 Respiratory Rate: 16 Temperature: 97.7 F Patient is:: Awake and Stable Stable to PACU at:: 14:19 Comments:: bs 175 in pacu
[2022-11-20 14:27] LABS: POC Glucose,Bedside 175 (70-110)
--- NOTE | 2022-11-20 14:27 | XR_ITS ---
PROCEDURE INFORMATION: Exam: XR Right Ankle Exam date and time: 11/20/2022 7:50 PM Age: 62 years old Clinical indication: Condition or disease; Other: Post op abscess TECHNIQUE: Imaging protocol: Radiologic exam of the right ankle. Views: 3 or more views. COMPARISON: CR XR ANKLE RT MIN 3V 11/19/2022 12:46 PM FINDINGS: Bones/joints: Patient appears to be status post ray amputation of the 1st metatarsal. Stable appearing mid 5th metatarsal amputation. Distal fibula appears somewhat mottled without yumiko cortical erosion. Remaining phalanges are not well evaluated. Soft tissues: Diffuse soft tissue swelling overlying the ankle and foot which appears somewhat mottled overlying the fibula. IMPRESSION: Status post ray amputation of the 1st metatarsal with stable 5th metatarsal amputation. Diffuse soft tissue swelling with somewhat mottled appearance overlying the distal fibula. Can not exclude new or progressive osteomyelitis at this location. If there is concern for soft tissue abscess, cross-sectional imaging would have greater sensitivity and specificity.
[2022-11-20 17:59] LABS: POC Glucose,Bedside 180 (70-110)
--- NOTE | 2022-11-20 18:44 | PC.NURSE ---
pt has done well since coming back from surgery. vss, bp was a little soft when pt was sleeping. cb within reach.
[2022-11-20 21:10] LABS: POC Glucose,Bedside 288 (70-110)
[2022-11-21] VITALS (22 sets, daily range): BP systolic 99–190; BP diastolic 53–100; PULSE 84–98; RESP 16–20; TEMP 36.5–37.4; O2SAT 90–100; BMI 27.6
[2022-11-21 06:41] LABS: Basophils # 0.1 K/mm3 (0-0.2); Basophils % 0.4 % (0.1-2.0); Eosinophils # 0.5 K/mm3 (0.0-0.4); Eosinophils % 3.4 % (0.1-12.0); Hematocrit 33.7 % (37.0-47.0); Hemoglobin 10.6 g/dL (12.2-16.2); Lymphocytes # 1.2 K/mm3 (0.7-4.5); Mean Corpuscular HGB Conc 31.4 g/dL (31.8-35.4); Mean Corpuscular Hemoglobin 28.2 pg (27.0-31.2); Mean Corpuscular Volume 89.8 fl (81-99); Mean Platelet Volume 7.8 fl (7.4-10.4); Monocytes # 0.7 K/mm3 (0.1-1.0); Neutrophils # 11.1 K/mm3 (1.8-7.8); Neutrophils % 82.2 % (37.0-80.0); Platelet Count 493 K/mm3 (142-424); Red Blood Count 3.75 M/mm3 (4.20-5.40); Red Cell Distribution Width 14.7 % (11.5-17.5); White Blood Count 13.5 K/mm3 (4.8-10.8)
[2022-11-21 06:44] LABS: Chloride 102 mmol/L (98-107)
[2022-11-21 06:45] LABS: Potassium 4.2 mmoL/L (3.5-5.1); Sodium 138 mmol/L (136-145)
[2022-11-21 06:47] LABS: Blood Urea Nitrogen 12 mg/dl (7-17); Creatinine Clearance Estimated 61 mL/min (50-200); Estimated Glomerular Filt Rate 124 ml/min (>60); GFR (African American) 150 ML/MIN (>60)
[2022-11-21 06:48] LABS: Alanine Aminotransferase 37 U/L (12-78); Albumin Level 3.2 g/dl (3.5-5.0); Alkaline Phosphatase 197 U/L (38-126); Anion Gap 13.2 mEq/L (5-15); Aspartate Amino Transferase 42 U/L (14-36); Bilirubin,Total 0.2 mg/dl (0.2-1.3); Calcium 8.9 mg/dl (8.4-10.2); Carbon Dioxide 27 mmol/L (22.0-30.0); Globulin 3.1 g/dL (1.3-3.2); Glucose 95 mg/dl (74-100); Magnesium 1.6 mg/dl (1.6-2.3); Total Protein,Serum 6.3 g/dl (6.3-8.2)
[2022-11-21 07:01] LABS: C-Reactive Protein 170.4 mg/L (0-4)
[2022-11-21 07:01] LABS: POC Glucose,Bedside 109 (70-110)
--- NOTE | 2022-11-21 07:07 | IR_ITS ---
APPROVED REPORT Patient Location: Inpatient Gis Coordinator: KRYSTAL Nuñez RT (R) PROCEDURES Catheter placement in the right external iliac artery Right external iliac artery antegrade angiogram with unilateral runoff to the right foot Angioplasty to the right popliteal artery INDICATION [place] claudication class V, Limb threatening ischemia, Ischemic osteomyelitis, Occluded right popliteal artery Informed consent was obtained prior to the procedure. COMPLICATIONS None Estimated Blood Loss: Less than 10 mls TECHNIQUE 1% lidocaine used to anesthetize the right anterior aspect of the right wrist. The right radial artery was accessed via the central technique and an arterial cocktail using 5000U heparin, 2.5 mg verapamil, 1mg lidocaine and 800mcg nitroglycerin into the right radial sheath intra-arterially. A PV multi curve was advanced under fluoroscopic guidance into the right external iliac artery right external iliac artery antegrade angiography was performed with unilateral runoff to the right foot. Following this therapeutic heparin was administered and the short sheath was exchanged for a 119 cm long hydrophilic sheath. A long advantage wire was placed distal to the popliteal artery occlusion and a 5 mm x 80 mm balloon was deployed at 16 and then 18 [place] in the popliteal artery reducing the 100% occlusion to less than 10%. Excellent angiographic results were obtained with inline flow into the distal popliteal artery at the end of the procedure. At the end of procedure the apparatus was removed the sheath was removed hemostasis was achieved using TR banding patient transferred to the postop putting in stable condition ANGIOGRAPHIC RESULTS Right common internal/external arteries are patent Right common femoral arteries patent Right profunda femoris artery is patent Right superficial femoral artery is patent Right popliteal artery is occluded within the stent and then there is recanalization with two-vessel runoff below the knee on the right side At the end the procedure the right popliteal artery is widely patent IMPRESSION Chronically occluded right popliteal artery Successful percutaneous revascularization of the right popliteal artery 100% occlusion reduced to less than 10% with plain old balloon angioplasty PLAN 1. Xarelto 2.5 twice daily plus aspirin 81 mg a day. If patient is unable to take this medicine recommend Plavix 75 daily plus aspirin 81 mg daily 2. Absolute tobacco cessation 3. Supportive care along with wound care per foot and ankle surgery 4. LDL less than 55 to be achieved with high intensity statin Electronically signed by : Anival Snow MD 11/21/2022 14:36:12
[2022-11-21 07:16] LABS: Erythrocyte Sedimentation Rate 91 mm/hr (0-30)
--- NOTE | 2022-11-21 08:08 | EXP.ORTH.PN ---
Subjective *Date: 11/21/22 *Time: 08:55 Interval history: Patient lying in bed alert and oriented. S/p right ankle I&D. No acute distress noted. Complaining of pain to right lower leg above incision site. Right ankle and right foot incision sites intact with no bleeding or drainage noted. Sutures intact to all incisions. Right ankle incision dressing changed by . Patient made no request. Ortho Exam (Inpt) Vital signs and Labs for Last 24 Hours: Temp Pulse Resp BP Pulse Ox 98.7 F 84 18 140/71 97 11/21/22 07:36 11/21/22 07:36 11/21/22 07:36 11/21/22 07:36 11/21/22 07:36 Laboratory Results - last 24 hr 11/20/22 11:37: POC Glucose 158 H 11/20/22 14:20: POC Glucose 175 H 11/20/22 17:44: POC Glucose 180 H 11/20/22 20:59: POC Glucose 288 H 11/21/22 05:55: WBC 13.5 H, RBC 3.75 L, Hgb 10.6 L, Hct 33.7 L, MCV 89.8, MCH 28.2, MCHC 31.4 L, RDW 14.7, Plt Count 493 H, MPV 7.8, Neut % (Auto) 82.2 H, Lymph % (Auto) 9.0 L, [place] % (Auto) 5.0, Eos % (Auto) 3.4, Baso % (Auto) 0.4, Neut # (Auto) 11.1 H, Lymph # (Auto) 1.2, [place] # (Auto) 0.7, Eos # (Auto) 0.5 H, Baso # (Auto) 0.1 11/21/22 05:55: Sodium 138, Potassium 4.2, Chloride 102, Carbon Dioxide 27, Anion Gap 13.2, BUN 12, Creatinine 0.50 L, Estimated Creat Clear 61, Estimated GFR 124, Est GFR ( Amer) 150, Glucose 95, Calcium 8.9, Magnesium 1.6, Total Bilirubin 0.2, AST 42 H D, ALT 37 D, Alkaline Phosphatase 197 H, C-Reactive Protein 170.4 H, Total Protein 6.3, Albumin 3.2 L, Globulin 3.1, Albumin/Globulin Ratio 1.0 L 11/21/22 05:55: ESR 91 H 11/21/22 06:02: POC Glucose 109 I & O for Labs for Last 24 Hours: Intake & Output 11/18/22 11/19/22 11/20/22 11/21/22 23:59 23:59 23:59 23:59 Intake Total 240 / 530 1230 / 1230 Output Total 300 / 300 Balance 239 / 529 1229 / 1229 -300 / -300 Weight 141 lb 2 oz 148 lb 8 oz 150 lb 3.2 oz Constitutional: Present no acute distress Head: Present normocephalic Neck: Present normal inspection Respiratory: Present normal respiratory effort and able to speak in complete sentences Cardiac: Present Regular Rate, posterior tibial pulses present and pedal pulses present GI: Present other (no obesity) Rectal (female): Present deferred (female): Present deferred Extremities: Present tenderness (right lower leg) Skin: Present wounds (right foot and ankle) Comment:: 11/21/22: S/p right ankle I&D, right foot open biopsy, right 1st met partial ray amputation revision, and right ankle debridement. Incision site no bleeding or drainage noted. Sutures intact. Neuro: Present oriented x 3 and moves all extremities Ankle: right: erythema, right: swelling, right: tenderness, right: wound and right: pain with active ROM Feet/Toes: right: amputation, right: erythema, right: swelling, right: tenderness, right: wound and right: pain with active ROM Feet w/LR Ind Top: 1. S/P Right ankle I&D, Right foot open bone biopsy x2, Right first metatarsal partial ray amputation revision, Right ankle deep wide soft tissue irrigation and debridement. Incision sites no bleeding or drainage noted. Right lateral ankle wound packed with soaked betadine lodoform packing strip. Sutures intact to all incision sites. Patient complaining of pain with direct palpation of right lateral lower leg. Assessment and Plan *Assessment and plan (1) Blister of right ankle: Status: Acute Qualifiers: Encounter type: initial encounter Qualified Code(s): S90.521A - Blister (nonthermal), right ankle, initial encounter Category: Medical Code(s): S90.521A - Blister (nonthermal), right ankle, initial encounter (2) Abscess of skin of right ankle: Status: Acute Category: Medical Code(s): L02.415 - Cutaneous abscess of right lower limb (3) Diabetic ulcer of foot associated with type 2 diabetes mellitus, with necrosis of muscle: Status: Acute Category: Medical Code(s): E11.621 - Type 2 diabetes me
--- NOTE | 2022-11-21 09:20 | EXP.CARD.PN ---
Subjective Subjective Date: 11/21/22 Time: 09:21 Principal diagnosis: PAD with right ankle diabetic ulcer Interval history: 62-year-old female in bed with occasional twinges of pain from right foot debridement yesterday. She describes it as a cramping sensation with shooting pain up the leg. Discussed with her the recommendation for lower extremity angiogram to evaluate the blood flow to the foot for best chance of healing. Patient agrees to proceed. Exam Data for Last 24 hours Vital signs and Labs for Last 24 Hours: Temp Pulse Resp BP Pulse Ox 98.7 F 84 18 140/71 97 11/21/22 07:36 11/21/22 07:36 11/21/22 07:36 11/21/22 07:36 11/21/22 07:36 Laboratory Results - last 24 hr 11/20/22 11:37: POC Glucose 158 H 11/20/22 14:20: POC Glucose 175 H 11/20/22 17:44: POC Glucose 180 H 11/20/22 20:59: POC Glucose 288 H 11/21/22 05:55: WBC 13.5 H, RBC 3.75 L, Hgb 10.6 L, Hct 33.7 L, MCV 89.8, MCH 28.2, MCHC 31.4 L, RDW 14.7, Plt Count 493 H, MPV 7.8, Neut % (Auto) 82.2 H, Lymph % (Auto) 9.0 L, [place] % (Auto) 5.0, Eos % (Auto) 3.4, Baso % (Auto) 0.4, Neut # (Auto) 11.1 H, Lymph # (Auto) 1.2, [place] # (Auto) 0.7, Eos # (Auto) 0.5 H, Baso # (Auto) 0.1 11/21/22 05:55: Sodium 138, Potassium 4.2, Chloride 102, Carbon Dioxide 27, Anion Gap 13.2, BUN 12, Creatinine 0.50 L, Estimated Creat Clear 61, Estimated GFR 124, Est GFR ( Amer) 150, Glucose 95, Calcium 8.9, Magnesium 1.6, Total Bilirubin 0.2, AST 42 H D, ALT 37 D, Alkaline Phosphatase 197 H, C-Reactive Protein 170.4 H, Total Protein 6.3, Albumin 3.2 L, Globulin 3.1, Albumin/Globulin Ratio 1.0 L 11/21/22 05:55: ESR 91 H 11/21/22 06:02: POC Glucose 109 I & O for Last 24 hours: Intake & Output 11/18/22 11/19/22 11/20/22 11/21/22 11:59 11:59 11:59 11:59 Intake Total 580 / 580 890 / 890 Output Total 2 / 2 300 / 300 Balance 578 / 578 590 / 590 Weight 148 lb 8 oz 150 lb 3.2 oz Constitutional Constitutional: mild distress *Routine Respiratory Exam Respiratory: Present CTA bilaterally *Routine Cardiovascular Exam Cardiovascular: Present RRR *Routine Extremities Exam Comments: Right foot and ankle bandaged Progress Note: A&P Assessment and plan (1) Blister of right ankle: Status: Acute (2) Abscess of skin of right ankle: Status: Acute (3) Diabetic ulcer of foot associated with type 2 diabetes mellitus, with necrosis of muscle: Status: Acute (4) Cellulitis of right foot: Status: Acute (5) Tobacco abuse: Status: Acute (6) PAD (peripheral artery disease): Status: Chronic (7) Diabetic infection of right foot: Status: Acute (8) Status post surgery: Status: Acute Assessment and Plan Assessment and Plan for All Diagnoses:: 1.? Diabetic ulcer with cellulitis of RLE/ankle area, elevated WBC s/p would debridement with bone biopsy. Foot CT, 11/19/2022, Possible osteitis of 1st metatarsal with focal bony erosions at the calcaneal cuboid articulation that may be due to an erosive arthropathy or septic joint. on Abx (Vanc, Piperaceillin/Tazo) 2.? PAD with prior bilateral LE stenting and angioplasty procedures within the last year. LE angiogram today to evaluate blood flow for adequate chance to heal RLE ulcer Likely will need right BKA if unable to improve blood flow 3.? Tobacco use Cessation required 4.? Diabetes for >30 yrs Hgb A1C 10.7 CRP 129 and ESR 76
--- NOTE | 2022-11-21 10:06 | P.PNANES_ITS ---
[facility] Anesthesia Record Part II Anesthesia Record Part II Discharge Time: 14:49 Destination: Medical Surgical Department PACU nurse assessment reviewed?: Yes Patient Condition:: Good Anesthesia Complications:: None Swallowing reflex intact?: Yes Cyanosis?: No Blood Pressure: 155/76 Pulse Rate: 98 Temperature: 97.7 F Mental Status: Alert & Oriented Pain level:: 4 Nausea and/or vomitting:: None Intake, IV Amount: 0
--- NOTE | 2022-11-21 10:09 | PC.NURSE ---
Used the ipad to speak to a Bulgarian speaking soil surveyor to see if the patient had any questions.
[2022-11-21 11:11] LABS: POC Glucose,Bedside 114 (70-110)
--- NOTE | 2022-11-21 11:48 | EXP.ACUTE.PN ---
Subjective *Date: 11/21/22 *Time: 11:48 Interval history: Patient remained hemodynamically stable overnight medically stable overnight. Afebrile. Mild to moderate pain in right ankle. Labs this morning with improvement in white cell count. Kidney function and electrolytes all normal. Tim case with podiatry at bedside as they were doing a dressing change. Patient stable on room air. Tolerating p.o. intake. Medical Exam Vital signs and Labs for Last 24 Hours: Vital Signs Temp Pulse Pulse Resp BP BP Pulse Ox 11/21/22 11:17 98.6 F 89 18 139/70 96 11/21/22 08:00 97 11/21/22 07:36 98.7 F 84 18 140/71 97 11/21/22 04:00 98.9 F 89 20 125/63 95 11/20/22 23:40 98.8 F 84 16 117/59 L 97 11/20/22 21:35 98.4 F 84 16 124/66 95 11/20/22 20:35 98.6 F 86 16 124/67 95 11/20/22 19:35 98.4 F 84 16 120/61 97 11/20/22 19:38 97.3 F L 90 16 121/65 95 11/20/22 18:35 98.4 F 86 16 120/76 98 11/20/22 17:35 98.4 F 70 16 113/67 98 11/20/22 17:05 98.4 F 66 16 99/77 L 98 11/20/22 16:35 98.5 F 98 H 16 142/72 H 96 11/20/22 16:05 98.4 F 93 H 16 119/69 98 11/20/22 15:35 98.6 F 95 H 16 131/67 97 11/20/22 15:20 98.5 F 96 H 18 133/71 98 11/20/22 15:05 98.6 F 95 H 16 136/77 98 11/20/22 14:50 98.6 F 95 H 16 142/77 H 98 11/20/22 14:49 98 H 16 155/76 H 97 11/20/22 14:39 101 H 14 159/80 H 97 11/20/22 14:29 103 H 16 168/84 H 92 L 11/20/22 14:19 97.7 F 101 H 14 146/81 H 91 L 11/20/22 14:38 14 11/20/22 14:22 97.7 F 103 H 16 146/81 H Intake and Output 11/20/22 11/21/22 11/21/22 23:59 07:59 15:59 Intake Total 340 / 1230 0 / 0 Output Total 300 / 300 0 / 300 Balance 340 / 1229 -300 / -300 0 / -300 Intake: Intake, Oral Amount 240 / 480 Intake, Total IV Amount 100 / 750 0 / 0 Piperacillin/Tazo 3.375 gm In 0 100 / 200 .9 % Sodium Chloride 50 ml @ 100 mls/hr IV Q8H [facility] Rx#: [id number] Output: Output, Urine Amount 300 / 300 0 / 300 Other: Number of Unmeasured Voids 2 Weight 68.13 kg Patient Weight 11/21/22 23:59 Weight 68.13 kg Laboratory Results - last 24 hr 11/20/22 14:20: POC Glucose 175 H 11/20/22 17:44: POC Glucose 180 H 11/20/22 20:59: POC Glucose 288 H 11/21/22 05:55: WBC 13.5 H, RBC 3.75 L, Hgb 10.6 L, Hct 33.7 L, MCV 89.8, MCH 28.2, MCHC 31.4 L, RDW 14.7, Plt Count 493 H, MPV 7.8, Neut % (Auto) 82.2 H, Lymph % (Auto) 9.0 L, [place] % (Auto) 5.0, Eos % (Auto) 3.4, Baso % (Auto) 0.4, Neut # (Auto) 11.1 H, Lymph # (Auto) 1.2, [place] # (Auto) 0.7, Eos # (Auto) 0.5 H, Baso # (Auto) 0.1 11/21/22 05:55: Sodium 138, Potassium 4.2, Chloride 102, Carbon Dioxide 27, Anion Gap 13.2, BUN 12, Creatinine 0.50 L, Estimated Creat Clear 61, Estimated GFR 124, Est GFR ( Amer) 150, Glucose 95, Calcium 8.9, Magnesium 1.6, Total Bilirubin 0.2, AST 42 H D, ALT 37 D, Alkaline Phosphatase 197 H, C-Reactive Protein 170.4 H, Total Protein 6.3, Albumin 3.2 L, Globulin 3.1, Albumin/Globulin Ratio 1.0 L 11/21/22 05:55: ESR 91 H 11/21/22 06:02: POC Glucose 109 11/21/22 10:50: POC Glucose 114 H I & O for Labs for Last 24 Hours: Intake & Output 11/18/22 11/19/22 11/20/22 11/21/22 23:59 23:59 23:59 23:59 Intake Total 240 / 530 1230 / 1230 0 / 0 Output Total 300 / 300 Balance 239 / 529 1229 / 1229 -300 / -300 Weight 64.013 kg 67.358 kg 68.13 kg Constitutional: Present no acute distress and average body habitus Head: Present atraumatic Eyes: Present as per HPI ENT: Present normal exam Neck: Present normal inspection Respiratory: Present CTA bilaterally and normal respiratory effort; Absent accessory muscle use Cardiac: Present Reg Rate and Rhythm and S1/S2 GI: Present soft and normal bowel sounds; Absent tenderness Comments:: Comments:: deferred Comment:: deferred Extremities: Absent joint swelling Comment:
[2022-11-21 14:52] LABS: CATHL Activated Clotting Time 215 SEC (74-125)
--- NOTE | 2022-11-21 15:13 | PC.NURSE ---
Pt. back to the floor site is c/d/i with no bleeding noted.
--- NOTE | 2022-11-21 15:30 | XR_ITS ---
PROCEDURE INFORMATION: Exam: XR Chest Exam date and time: 11/22/2022 9:11 AM Age: 62 years old Clinical indication: Device placement; Picc; Additional info: Confirm picc line placement TECHNIQUE: Imaging protocol: Radiologic exam of the chest. Views: 1 view. COMPARISON: No relevant priors. FINDINGS: Tubes, catheters and devices: PICC line on the right. Line tip in the superior vena cava. Lungs: Subtle hazy consolidation throughout the right lung. Lesser amount of perihilar consolidation on the left. Pleural spaces: Unremarkable. No pleural effusion. No pneumothorax. Heart/Mediastinum: Unremarkable. No cardiomegaly. Bones/joints: Unremarkable. IMPRESSION: No acute cardiopulmonary disease.
[2022-11-21 16:01] LABS: POC Glucose,Bedside 125 (70-110)
[2022-11-21 20:46] LABS: POC Glucose,Bedside 180 (70-110)
[2022-11-22] VITALS: BP 110/56; PULSE 96; RESP 18; TEMP 37; O2SAT 98
[2022-11-22 04:00] VITALS: BP 130/62; PULSE 100; RESP 16; TEMP 37.2; O2SAT 95; BMI 26.8
[2022-11-22 05:33] LABS: POC Glucose,Bedside 146 (70-110)
[2022-11-22 05:57] LABS: Basophils % 0.1 % (0.1-2.0); Eosinophils # 0.4 K/mm3 (0.0-0.4); Eosinophils % 2.2 % (0.1-12.0); Hematocrit 31.6 % (37.0-47.0); Hemoglobin 9.9 g/dL (12.2-16.2); Lymphocytes % 5.7 % (10-50); Mean Corpuscular HGB Conc 31.3 g/dL (31.8-35.4); Mean Corpuscular Hemoglobin 27.9 pg (27.0-31.2); Mean Corpuscular Volume 89.2 fl (81-99); Mean Platelet Volume 7.9 fl (7.4-10.4); Monocytes # 0.8 K/mm3 (0.1-1.0); Monocytes % 4.8 % (1.7-9.3); Neutrophils # 14.8 K/mm3 (1.8-7.8); Neutrophils % 87.2 % (37.0-80.0); Platelet Count 443 K/mm3 (142-424); Red Blood Count 3.54 M/mm3 (4.20-5.40); Red Cell Distribution Width 15.1 % (11.5-17.5)
[2022-11-22 06:01] LABS: MANUAL DIFFERENTIAL MANUAL DIFFERENTIAL (MANUAL DIFF)
[2022-11-22 06:09] LABS: Chloride 103 mmol/L (98-107); Sodium 135 mmol/L (136-145)
[2022-11-22 06:11] LABS: Blood Urea Nitrogen 8 mg/dl (7-17); Creatinine Clearance Estimated 59 mL/min (50-200); Estimated Glomerular Filt Rate 161 ml/min (>60); GFR (African American) 194 ML/MIN (>60)
[2022-11-22 06:12] LABS: Alanine Aminotransferase 31 U/L (12-78); Albumin Level 3.1 g/dl (3.5-5.0); Albumin/Globulin Ratio 1.1 (1.1-1.8); Alkaline Phosphatase 190 U/L (38-126); Aspartate Amino Transferase 43 U/L (14-36); Bilirubin,Total 0.4 mg/dl (0.2-1.3); Calcium 8.5 mg/dl (8.4-10.2); Carbon Dioxide 25 mmol/L (22.0-30.0); Globulin 2.9 g/dL (1.3-3.2); Glucose 138 mg/dl (74-100)
[2022-11-22 06:17] LABS: C-Reactive Protein 250.6 mg/L (0-4)
[2022-11-22 06:56] LABS: Erythrocyte Sedimentation Rate 127 mm/hr (0-30)
[2022-11-22 07:19] VITALS: BP 123/62; PULSE 94; RESP 18; TEMP 37.6; O2SAT 95
--- NOTE | 2022-11-22 07:37 | EXP.ACUTE.PN ---
Subjective *Date: 11/22/22 *Time: 17:05 Interval history: Patient's pain increased overnight with improved perfusion. Tolerating p.o. intake. Stable on room air. Afebrile. Tolerating IV antibiotics Medical Exam Vital signs and Labs for Last 24 Hours: Vital Signs Temp Pulse Pulse Resp BP BP BP 11/22/22 07:19 99.7 F H 94 H 18 123/62 11/22/22 04:00 99 F 100 H 16 130/62 11/22/22 00:00 98.6 F 96 H 18 110/56 L 11/21/22 22:51 99.3 F 94 H 16 122/73 11/21/22 21:00 98.8 F 95 H 16 134/68 11/21/22 20:00 98.4 F 93 H 16 117/69 11/21/22 20:00 98.7 F 95 H 16 117/69 11/21/22 18:38 92 H 16 132/72 11/21/22 18:37 89 16 111/53 L 11/21/22 17:15 97 H 16 143/73 H 11/21/22 16:45 91 H 16 107/71 L 11/21/22 16:15 94 H 16 135/55 L 11/21/22 15:45 89 16 119/65 11/21/22 15:30 93 H 16 99/66 L 11/21/22 15:15 94 H 18 121/59 L 11/21/22 15:00 98.6 F 92 H 16 103/57 L 11/21/22 14:45 87 20 140/65 11/21/22 14:40 90 20 118/72 11/21/22 14:35 92 H 20 128/67 11/21/22 14:28 90 89 16 109/63 L 11/21/22 13:38 190/100 H 11/21/22 11:17 98.6 F 89 18 139/70 11/21/22 08:00 Pulse Ox 11/22/22 07:19 95 11/22/22 04:00 95 11/22/22 00:00 98 11/21/22 22:51 94 L 11/21/22 21:00 97 11/21/22 20:00 96 11/21/22 20:00 98 11/21/22 18:38 95 11/21/22 18:37 94 L 11/21/22 17:15 91 L 11/21/22 16:45 91 L 11/21/22 16:15 96 11/21/22 15:45 97 11/21/22 15:30 97 11/21/22 15:15 97 11/21/22 15:00 96 11/21/22 14:45 100 11/21/22 14:40 99 11/21/22 14:35 90 L 11/21/22 14:28 91 L 11/21/22 13:38 11/21/22 11:17 96 11/21/22 08:00 97 Intake and Output 11/21/22 11/21/22 11/22/22 15:59 23:59 07:59 Intake Total 0 / 100 100 / 100 240 / 240 Output Total 0 / 650 350 / 650 0 / 0 Balance 0 / -550 -250 / -550 240 / 240 Intake: Intake, Oral Amount 240 / 240 Intake, Total IV Amount 0 / 100 100 / 100 Piperacillin/Tazo 3.375 gm In 0 100 / 100 .9 % Sodium Chloride 50 ml @ 100 mls/hr IV Q8H [facility] Rx#: [id number] Output: Output, Urine Amount 0 / 650 350 / 650 0 / 0 Other: Number of Unmeasured Voids 2 1 1 Weight 68 kg 66.134 kg Patient Weight 11/22/22 23:59 Weight 66.134 kg Laboratory Results - last 24 hr 11/21/22 10:50: POC Glucose 114 H 11/21/22 14:03: Activated Clotting Time 215 H* 11/21/22 15:39: POC Glucose 125 H 11/21/22 20:05: POC Glucose 180 H 11/22/22 05:15: POC Glucose 146 H 11/22/22 05:47: Sodium 135 L, Potassium 4.0, Chloride 103, Carbon Dioxide 25, Anion Gap 11.0, BUN 8 D, Creatinine 0.40 L, Estimated Creat Clear 59, Estimated GFR 161, Est GFR ( Amer) 194 D, Glucose 138 H D, Calcium 8.5, Total Bilirubin 0.4, AST 43 H, ALT 31, Alkaline Phosphatase 190 H, C-Reactive Protein 250.6 H, Total Protein 6.0 L, Albumin 3.1 L, Globulin 2.9, Albumin/Globulin Ratio 1.1 11/22/22 05:47: WBC 17.0 H D, RBC 3.54 L, Hgb 9.9 L, Hct 31.6 L, MCV 89.2, MCH 27.9, MCHC 31.3 L, RDW 15.1, Plt Count 443 H, MPV 7.9, Neut % (Auto) 87.2 H, Lymph % (Auto) 5.7 L, [place] % (Auto) 4.8, Eos % (Auto) 2.2, Baso % (Auto) 0.1, Neut # (Auto) 14.8 H, Lymph # (Auto) 1.0, [place] # (Auto) 0.8, Eos # (Auto) 0.4, Baso # (Auto) 0.0 11/22/22 05:47: ESR 127 H I & O for Labs for Last 24 Hours: Intake & Output 11/19/22 11/20/22 11/21/22 11/22/22 23:59 23:59 23:59 23:59 Intake Total 240 / 530 1230 / 1230 100 / 100 240 / 240 Output Total 650 / 650 0 / 0 Balance 239 / 529 1229 / 1229 -550 / -550 240 / 240 Weight 64.013 kg 67.358 kg 68 kg 66.134 kg Microbiology Reports for the Last 24 Hours: Microbiology 11/20/22 13:25 Ankle,Right Gram Stain - Final 11/20/22 13:25 Ankle,Right Wound Culture - Preliminary Gram Positive Cocci 11/20/22 13:25 Foot,Right - Right Side Bone Culture - Preliminary
[2022-11-22 07:50] LABS: Lymphocytes % 9 % (10-50); Monocytes % 5 % (2-9); Neutrophils % 86 % (42-76); RBC Morphology Normal; Total Cells Counted 100
[2022-11-22 07:52] LABS: Platelet Estimate Slight Increase
--- NOTE | 2022-11-22 08:15 | PC.NURSE ---
Large insect found on pt. bed, bug sent to lab. Lab confirmed it is a bed bug.
--- NOTE | 2022-11-22 08:29 | EXP.ORTH.PN ---
Subjective *Date: 11/23/22 *Time: 10:15 Interval history: Patient resting in bed alert and oriented. S/p right ankle I&D. No acute distress noted. Complaining of pain to right lower leg above incision site. Right ankle and right foot incision sites intact with bloody drainage noted today. Sutures intact to all incisions. Right ankle incision dressing changed per order. Patient made no request. Ortho Exam (Inpt) Vital signs and Labs for Last 24 Hours: Temp Pulse Resp BP Pulse Ox 99.7 F H 94 H 18 123/62 95 11/22/22 07:19 11/22/22 07:19 11/22/22 07:19 11/22/22 07:19 11/22/22 07:19 Laboratory Results - last 24 hr 11/21/22 10:50: POC Glucose 114 H 11/21/22 14:03: Activated Clotting Time 215 H* 11/21/22 15:39: POC Glucose 125 H 11/21/22 20:05: POC Glucose 180 H 11/22/22 05:15: POC Glucose 146 H 11/22/22 05:47: Sodium 135 L, Potassium 4.0, Chloride 103, Carbon Dioxide 25, Anion Gap 11.0, BUN 8 D, Creatinine 0.40 L, Estimated Creat Clear 59, Estimated GFR 161, Est GFR ( Amer) 194 D, Glucose 138 H D, Calcium 8.5, Total Bilirubin 0.4, AST 43 H, ALT 31, Alkaline Phosphatase 190 H, C-Reactive Protein 250.6 H, Total Protein 6.0 L, Albumin 3.1 L, Globulin 2.9, Albumin/Globulin Ratio 1.1 11/22/22 05:47: WBC 17.0 H D, RBC 3.54 L, Hgb 9.9 L, Hct 31.6 L, MCV 89.2, MCH 27.9, MCHC 31.3 L, RDW 15.1, Plt Count 443 H, MPV 7.9, Neut % (Auto) 87.2 H, Lymph % (Auto) 5.7 L, [place] % (Auto) 4.8, Eos % (Auto) 2.2, Baso % (Auto) 0.1, Neut # (Auto) 14.8 H, Lymph # (Auto) 1.0, [place] # (Auto) 0.8, Eos # (Auto) 0.4, Baso # (Auto) 0.0, Total Counted 100, Neutrophils % (Manual) 86 H, Lymphocytes % (Manual) 9 L, Monocytes % (Manual) 5, Platelet Estimate Slight increase, RBC Morphology Normal 11/22/22 05:47: ESR 127 H I & O for Labs for Last 24 Hours: Intake & Output 11/19/22 11/20/22 11/21/22 11/22/22 23:59 23:59 23:59 23:59 Intake Total 240 / 530 1230 / 1230 100 / 100 240 / 240 Output Total 650 / 650 0 / 0 Balance 239 / 529 1229 / 1229 -550 / -550 240 / 240 Weight 141 lb 2 oz 148 lb 8 oz 149 lb 14.629 oz 145 lb 12.8 oz Microbiology Reports for the Last 24 Hours: Microbiology 11/20/22 13:25 Ankle,Right Gram Stain - Final 11/20/22 13:25 Ankle,Right Wound Culture - Preliminary Gram Positive Cocci 11/20/22 13:25 Foot,Right - Right Side Bone Culture - Preliminary NO GROWTH AFTER 24 HOURS 11/20/22 13:25 Foot,Right - Right Bone Culture - Preliminary NO GROWTH AFTER 24 HOURS 11/20/22 13:25 Foot,Right - Right Bone Culture - Preliminary NO GROWTH AFTER 24 HOURS 11/19/22 13:20 Blood Blood Culture - Preliminary NO GROWTH AFTER 48 HOURS 11/19/22 12:40 Blood Blood Culture - Preliminary NO GROWTH AFTER 48 HOURS Constitutional: Present no acute distress Head: Present normocephalic Neck: Present normal inspection Respiratory: Present normal respiratory effort and able to speak in complete sentences Cardiac: Present Regular Rate, posterior tibial pulses present and pedal pulses present GI: Present other (no obesity) Rectal (female): Present deferred (female): Present deferred Extremities: Present tenderness (right lower leg) Skin: Present wounds (right foot and ankle) Comment:: 11/22/22: S/p right ankle I&D, right foot open biopsy, right 1st met partial ray amputation revision, and right ankle debridement. Incision site with bloody drainage noted. Sutures intact. Neuro: Present oriented x 3 and moves all extremities Ankle: right: erythema, right: swelling, right: tenderness, right: wound and right: pain with active ROM Feet/Toes: right: amputation, right: erythema, right: swelling, right: tenderness, right: wound and right: pain with active ROM Feet w/LR Ind Top: 1. S/P right ankle I&D, right foot open bone biopsy x2, right first me
--- NOTE | 2022-11-22 08:34 | EXP.CARD.PN ---
Subjective Subjective Date: 11/22/22 Time: 08:34 Principal diagnosis: PAD with right ankle diabetic ulcer Interval history: 62-year-old female in bed in no acute distress. Some discomfort in the right lower extremity but overall doing well. Right lower extremity is now warmer to touch. She did have percutaneous intervention of her right popliteal artery yesterday with plain old balloon angioplasty. We will start aspirin 81 mg daily and Xarelto 2.5 mg daily if patient is able to tolerate it. If unable to afford or take Xarelto then will use aspirin 81 mg daily and Plavix 75 mg daily. Exam Data for Last 24 hours Vital signs and Labs for Last 24 Hours: Temp Pulse Resp BP Pulse Ox 99.7 F H 94 H 18 123/62 95 11/22/22 07:19 11/22/22 07:19 11/22/22 07:19 11/22/22 07:19 11/22/22 07:19 Laboratory Results - last 24 hr 11/21/22 10:50: POC Glucose 114 H 11/21/22 14:03: Activated Clotting Time 215 H* 11/21/22 15:39: POC Glucose 125 H 11/21/22 20:05: POC Glucose 180 H 11/22/22 05:15: POC Glucose 146 H 11/22/22 05:47: Sodium 135 L, Potassium 4.0, Chloride 103, Carbon Dioxide 25, Anion Gap 11.0, BUN 8 D, Creatinine 0.40 L, Estimated Creat Clear 59, Estimated GFR 161, Est GFR ( Amer) 194 D, Glucose 138 H D, Calcium 8.5, Total Bilirubin 0.4, AST 43 H, ALT 31, Alkaline Phosphatase 190 H, C-Reactive Protein 250.6 H, Total Protein 6.0 L, Albumin 3.1 L, Globulin 2.9, Albumin/Globulin Ratio 1.1 11/22/22 05:47: WBC 17.0 H D, RBC 3.54 L, Hgb 9.9 L, Hct 31.6 L, MCV 89.2, MCH 27.9, MCHC 31.3 L, RDW 15.1, Plt Count 443 H, MPV 7.9, Neut % (Auto) 87.2 H, Lymph % (Auto) 5.7 L, Towner % (Auto) 4.8, Eos % (Auto) 2.2, Baso % (Auto) 0.1, Neut # (Auto) 14.8 H, Lymph # (Auto) 1.0, Towner # (Auto) 0.8, Eos # (Auto) 0.4, Baso # (Auto) 0.0, Total Counted 100, Neutrophils % (Manual) 86 H, Lymphocytes % (Manual) 9 L, Monocytes % (Manual) 5, Platelet Estimate Slight increase, RBC Morphology Normal 11/22/22 05:47: ESR 127 H I & O for Last 24 hours: Intake & Output 11/19/22 11/20/22 11/21/22 11/22/22 11:59 11:59 11:59 11:59 Intake Total 580 / 580 890 / 890 340 / 340 Output Total 300 / 300 350 / 350 Balance 578 / 578 590 / 590 -10 / -10 Weight 148 lb 8 oz 150 lb 3.2 oz 145 lb 12.8 oz Microbiology Reports for the Last 24 Hours: Microbiology 11/20/22 13:25 Ankle,Right Gram Stain - Final 11/20/22 13:25 Ankle,Right Wound Culture - Preliminary Gram Positive Cocci 11/20/22 13:25 Foot,Right - Right Side Bone Culture - Preliminary NO GROWTH AFTER 24 HOURS 11/20/22 13:25 Foot,Right - Right Bone Culture - Preliminary NO GROWTH AFTER 24 HOURS 11/20/22 13:25 Foot,Right - Right Bone Culture - Preliminary NO GROWTH AFTER 24 HOURS 11/19/22 13:20 Blood Blood Culture - Preliminary NO GROWTH AFTER 48 HOURS 11/19/22 12:40 Blood Blood Culture - Preliminary NO GROWTH AFTER 48 HOURS *Routine Respiratory Exam Respiratory: Present CTA bilaterally *Routine Cardiovascular Exam Cardiovascular: Present RRR *Routine Extremities Exam Extremities: Present edema; Absent cyanosis or clubbing Comments: Right lower extremity warm to touch now Progress Note: A&P Assessment and plan (1) Osteomyelitis: Status: Acute (2) Abscess of skin of right ankle: Status: Acute (3) Diabetic ulcer of foot associated with type 2 diabetes mellitus, with necrosis of muscle: Status: Acute (4) Cellulitis of right foot: Status: Acute (5) Tobacco abuse: Status: Acute (6) PAD (peripheral artery disease): Status: Chronic (7) Diabetic infection of right foot: Status: Acute (8) Status post surgery: Status: Acute (9) Type 2 diabetes mellitus: Status: Chronic (10) Hypertension: Status: Chronic Assessment and Plan Assess
--- NOTE | 2022-11-22 09:38 | EXP.PHA.PN ---
Subjective *Date: 11/22/22 *Time: 09:38 Medical Exam Vital signs and Labs for Last 24 Hours: Vital Signs Temp Pulse Pulse Resp BP BP BP 11/22/22 07:19 99.7 F H 94 H 18 123/62 11/22/22 04:00 99 F 100 H 16 130/62 11/22/22 00:00 98.6 F 96 H 18 110/56 L 11/21/22 22:51 99.3 F 94 H 16 122/73 11/21/22 21:00 98.8 F 95 H 16 134/68 11/21/22 20:00 98.4 F 93 H 16 117/69 11/21/22 20:00 98.7 F 95 H 16 117/69 11/21/22 18:38 92 H 16 132/72 11/21/22 18:37 89 16 111/53 L 11/21/22 17:15 97 H 16 143/73 H 11/21/22 16:45 91 H 16 107/71 L 11/21/22 16:15 94 H 16 135/55 L 11/21/22 15:45 89 16 119/65 11/21/22 15:30 93 H 16 99/66 L 11/21/22 15:15 94 H 18 121/59 L 11/21/22 15:00 98.6 F 92 H 16 103/57 L 11/21/22 14:45 87 20 140/65 11/21/22 14:40 90 20 118/72 11/21/22 14:35 92 H 20 128/67 11/21/22 14:28 90 89 16 109/63 L 11/21/22 13:38 190/100 H 11/21/22 11:17 98.6 F 89 18 139/70 Pulse Ox 11/22/22 07:19 95 11/22/22 04:00 95 11/22/22 00:00 98 11/21/22 22:51 94 L 11/21/22 21:00 97 11/21/22 20:00 96 11/21/22 20:00 98 11/21/22 18:38 95 11/21/22 18:37 94 L 11/21/22 17:15 91 L 11/21/22 16:45 91 L 11/21/22 16:15 96 11/21/22 15:45 97 11/21/22 15:30 97 11/21/22 15:15 97 11/21/22 15:00 96 11/21/22 14:45 100 11/21/22 14:40 99 11/21/22 14:35 90 L 11/21/22 14:28 91 L 11/21/22 13:38 11/21/22 11:17 96 Intake and Output 11/21/22 11/22/22 11/22/22 23:59 07:59 15:59 Intake Total 100 / 100 240 / 240 Output Total 350 / 650 0 / 0 Balance -250 / -550 240 / 240 Intake: Intake, Oral Amount 240 / 240 Intake, Total IV Amount 100 / 100 Piperacillin/Tazo 3.375 gm In 0 100 / 100 .9 % Sodium Chloride 50 ml @ 100 mls/hr IV Q8H [facility] Rx#: [id number] Output: Output, Urine Amount 350 / 650 0 / 0 Other: Number of Unmeasured Voids 1 1 1 Weight 66.134 kg Patient Weight 11/22/22 23:59 Weight 66.134 kg Laboratory Results - last 24 hr 11/21/22 10:50: POC Glucose 114 H 11/21/22 14:03: Activated Clotting Time 215 H* 11/21/22 15:39: POC Glucose 125 H 11/21/22 20:05: POC Glucose 180 H 11/22/22 05:15: POC Glucose 146 H 11/22/22 05:47: Sodium 135 L, Potassium 4.0, Chloride 103, Carbon Dioxide 25, Anion Gap 11.0, BUN 8 D, Creatinine 0.40 L, Estimated Creat Clear 59, Estimated GFR 161, Est GFR ( Amer) 194 D, Glucose 138 H D, Calcium 8.5, Total Bilirubin 0.4, AST 43 H, ALT 31, Alkaline Phosphatase 190 H, C-Reactive Protein 250.6 H, Total Protein 6.0 L, Albumin 3.1 L, Globulin 2.9, Albumin/Globulin Ratio 1.1 11/22/22 05:47: WBC 17.0 H D, RBC 3.54 L, Hgb 9.9 L, Hct 31.6 L, MCV 89.2, MCH 27.9, MCHC 31.3 L, RDW 15.1, Plt Count 443 H, MPV 7.9, Neut % (Auto) 87.2 H, Lymph % (Auto) 5.7 L, Bandera % (Auto) 4.8, Eos % (Auto) 2.2, Baso % (Auto) 0.1, Neut # (Auto) 14.8 H, Lymph # (Auto) 1.0, Bandera # (Auto) 0.8, Eos # (Auto) 0.4, Baso # (Auto) 0.0, Total Counted 100, Neutrophils % (Manual) 86 H, Lymphocytes % (Manual) 9 L, Monocytes % (Manual) 5, Platelet Estimate Slight increase, RBC Morphology Normal 11/22/22 05:47: ESR 127 H I & O for Labs for Last 24 Hours: Intake & Output 11/19/22 11/20/22 11/21/22 11/22/22 23:59 23:59 23:59 23:59 Intake Total 240 / 530 1230 / 1230 100 / 100 240 / 240 Output Total 650 / 650 0 / 0 Balance 239 / 529 1229 / 1229 -550 / -550 240 / 240 Weight 64.013 kg 67.358 kg 68 kg 66.134 kg Microbiology Reports for the Last 24 Hours: Microbiology 11/20/22 13:25 Ankle,Right Gram Stain - Final 11/20/22 13:25 Ankle,Right Wound Culture - Preliminary Gram Positive Cocci 11/20/22 13:25 Foot,Right - Right Side Bone Culture - Preliminary NO GROWTH AFTER 24 HOURS 11/20/22 13:25 Foot,Right - Right Bone Cultu
--- NOTE | 2022-11-22 09:39 | DIET.NUTRFU ---
Reviewing chart and verified with patient no BM since 11/19. She reports she feels gassy today. No meds in place for BM, she is on pain meds which can cause constipation. She is on diabetic diet and ate 50% from breakfast today. Nursing aware
[2022-11-22 11:22] VITALS: BP 132/60; PULSE 91; RESP 18; TEMP 37.1; O2SAT 95
[2022-11-22 11:38] LABS: POC Glucose,Bedside 197 (70-110)
[2022-11-22 15:14] VITALS: BP 121/60; PULSE 92; RESP 18; TEMP 37; O2SAT 96
--- NOTE | 2022-11-22 18:19 | PC.NURSE ---
pt has complained of pain two times, since assuming care of patient, has been up to [facility]SC with standby assist, dressing to RLE C/D/I,
[2022-11-22 18:29] LABS: Vancomycin,Trough < 5.0 ug/mL (5.0-10.0)
[2022-11-22 20:00] VITALS: BP 119/59; PULSE 87; RESP 16; TEMP 37; O2SAT 97
[2022-11-22 20:05] LABS: POC Glucose,Bedside 201 (70-110)
[2022-11-23] VITALS: BP 145/71; PULSE 93; RESP 18; TEMP 37.4; O2SAT 96
[2022-11-23 04:00] VITALS: BP 111/46; PULSE 81; RESP 18; TEMP 37.1; O2SAT 96; BMI 27.2
[2022-11-23 05:43] LABS: POC Glucose,Bedside 129 (70-110)
[2022-11-23 06:02] LABS: POC Glucose,Bedside 209 (70-110)
[2022-11-23 06:48] LABS: Chloride 103 mmol/L (98-107)
[2022-11-23 06:49] LABS: Sodium 138 mmol/L (136-145)
[2022-11-23 06:51] LABS: Alanine Aminotransferase 27 U/L (12-78); Albumin Level 3.2 g/dl (3.5-5.0); Alkaline Phosphatase 160 U/L (38-126); Aspartate Amino Transferase 32 U/L (14-36); Bilirubin,Total 0.2 mg/dl (0.2-1.3); Blood Urea Nitrogen 9 mg/dl (7-17); Carbon Dioxide 26 mmol/L (22.0-30.0); Creatinine Clearance Estimated 60 mL/min (50-200); Estimated Glomerular Filt Rate 161 ml/min (>60); GFR (African American) 194 ML/MIN (>60); Globulin 3.2 g/dL (1.3-3.2); Total Protein,Serum 6.4 g/dl (6.3-8.2)
[2022-11-23 06:52] LABS: Calcium 8.6 mg/dl (8.4-10.2); Glucose 117 mg/dl (74-100)
[2022-11-23 07:07] LABS: Erythrocyte Sedimentation Rate > 140 mm/hr (0-30)
[2022-11-23 08:00] VITALS: BP 152/70; PULSE 88; RESP 17; TEMP 36.6; O2SAT 96
--- NOTE | 2022-11-23 08:18 | EXP.ORTH.PN ---
Subjective *Date: 11/23/22 *Time: 11:00 Interval history: Patient lying in bed awake, alert and oriented. S/p right ankle I&D. Complaining of pain to right lower leg to touch and direct palpation. Right ankle incision with minimal drainage noted. The right foot skin is dusky in color and the right lateral ankle skin is black in color. Dr. Sosa Hospitalist and Dr. Maurice present at bedside discussing with patient treatment options for right foot and ankle osteomyelitis and recommendations for right below knee amputation. Ortho has been consulted. Right foot and ankle dressing change. Patient questions and concerns were addressed by Dr. Sosa and Dr. Maurice. Ortho Exam (Inpt) Vital signs and Labs for Last 24 Hours: Temp Pulse Resp BP Pulse Ox 98.8 F 81 18 111/46 L 96 11/23/22 04:00 11/23/22 04:00 11/23/22 04:00 11/23/22 04:00 11/23/22 04:00 Laboratory Results - last 24 hr 11/22/22 11:09: POC Glucose 197 H 11/22/22 16:46: POC Glucose 209 H 11/22/22 17:05: Vancomycin Trough < 5.0 L 11/22/22 19:46: POC Glucose 201 H 11/22/22 22:15: Vancomycin Peak 18.0 11/23/22 05:34: POC Glucose 129 H 11/23/22 05:45: Sodium 138, Potassium 4.0, Chloride 103, Carbon Dioxide 26, Anion Gap 13.0, BUN 9, Creatinine 0.40 L, Estimated Creat Clear 60, Estimated GFR 161, Est GFR ( Amer) 194, Glucose 117 H, Calcium 8.6, Total Bilirubin 0.2, AST 32 D, ALT 27, Alkaline Phosphatase 160 H, C-Reactive Protein 310.0 H, Total Protein 6.4, Albumin 3.2 L, Globulin 3.2, Albumin/Globulin Ratio 1.0 L 11/23/22 05:45: ESR > 140 H I & O for Labs for Last 24 Hours: Intake & Output 11/20/22 11/21/22 11/22/22 11/23/22 23:59 23:59 23:59 23:59 Intake Total 1230 / 1230 100 / 100 600 / 900 300 / 300 Output Total 1 / 650 / 650 0 / 0 Balance 1229 / 1229 -550 / -550 600 / 900 300 / 300 Weight 148 lb 8 oz 149 lb 14.629 oz 145 lb 12.8 oz 148 lb 1 oz Microbiology Reports for the Last 24 Hours: Microbiology 11/20/22 13:25 Foot,Right - Right Bone Culture - Preliminary NO GROWTH AFTER 48 HOURS 11/20/22 13:25 Foot,Right - Right Bone Culture - Preliminary NO GROWTH AFTER 48 HOURS 11/20/22 13:25 Foot,Right - Right Side Bone Culture - Preliminary NO GROWTH AFTER 48 HOURS 11/20/22 13:25 Ankle,Right Gram Stain - Final 11/20/22 13:25 Ankle,Right Wound Culture - Preliminary Gram Positive Cocci Constitutional: Present no acute distress Head: Present normocephalic Neck: Present normal inspection Respiratory: Present normal respiratory effort and able to speak in complete sentences Cardiac: Present Regular Rate, posterior tibial pulses present and pedal pulses present GI: Present other (no obesity) Rectal (female): Present deferred (female): Present deferred Extremities: Present tenderness (right lower leg) and calf tenderness (no calf tenderness) Skin: Present wounds (right foot and ankle) Comment:: 11/23/22: S/p right ankle I&D, right foot open biopsy, right 1st met partial ray amputation revision, and right ankle debridement. Incision site with minimal bloody drainage noted. Sutures intact. Right foot skin dusky in color and right lateral ankle skin black in color. Neuro: Present oriented x 3 and moves all extremities Ankle: right: erythema, right: swelling, right: tenderness, right: wound and right: pain with active ROM Feet/Toes: right: amputation, right: erythema, right: swelling, right: tenderness, right: wound and right: pain with active ROM Feet w/LR Ind Top: 1. S/P right ankle I&D, right foot open bone biopsy x2, right first metatarsal partial ray amputation revision, right ankle deep wide soft tissue irrigation and debridement. Incision with minimal bloody drainage noted. Right foot skin is dusky in color and right lateral ankle skin black in color. Patient having pain to right lower leg with palpation and touch. Dressing c
--- NOTE | 2022-11-23 08:45 | EXP.PHA.CONS ---
Pharmacy Consult Date: 11/23/22 Time: 08:52 Referring provider: DR LONG Reason for Consult:: VANCOMYCIN PEAK AND TROUGH LEVELS OBTAINED. Allergies Allergy/AdvReac Type Severity Reaction Status Date / Time Sulfa (Sulfonamide Allergy Severe rash; Verified 04/13/20 13:35 Antibiotics) itchy; trouble breathing Home Medications Medication Instructions Recorded Confirmed Type metformin 500 mg tablet 1,000 mg PO BID Diabetes 03/12/22 11/19/22 History paroxetine HCl 40 mg tablet (Paxil) 40 mg PO DAILY Depression 03/12/22 11/19/22 History oxycodone-acetaminophen 7.5 mg-325 1 ea PO Q6HP PRN Moderate To 03/17/22 11/19/22 Rx mg tablet Severe Pain #12 tabs New Prescriptions to Start Prescriptions: Height: 1.57 m Weight: 67.16 kg Laboratory Results:: Laboratory Results - last 24 hr 11/22/22 11:09: POC Glucose 197 H 11/22/22 16:46: POC Glucose 209 H 11/22/22 17:05: Vancomycin Trough < 5.0 L 11/22/22 19:46: POC Glucose 201 H 11/22/22 22:15: Vancomycin Peak 18.0 11/23/22 05:34: POC Glucose 129 H 11/23/22 05:45: Sodium 138, Potassium 4.0, Chloride 103, Carbon Dioxide 26, Anion Gap 13.0, BUN 9, Creatinine 0.40 L, Estimated Creat Clear 60, Estimated GFR 161, Est GFR ( Amer) 194, Glucose 117 H, Calcium 8.6, Total Bilirubin 0.2, AST 32 D, ALT 27, Alkaline Phosphatase 160 H, C-Reactive Protein 310.0 H, Total Protein 6.4, Albumin 3.2 L, Globulin 3.2, Albumin/Globulin Ratio 1.0 L 11/23/22 05:45: ESR > 140 H Medical History: Medical History (Updated 11/21/22 @ 11:56 by Eric Long MD) Amputee, great toe Anxiety Diabetes mellitus, type 2 Gangrene of right foot Hypertension Keratosis Assessment and Plan Assessment and plan all Dx Assessment and Plan for all problems:: VANCOMYCIN PEAK AND TROUGH LEVELS OBTAINED. VANCOMYCIN TROUGH: LESS THAN 5.0 MCG/ML (11/22/22 @ 1705) VANCOMYCIN PEAK: 18.0 MCG/ML (11/22/22 @ 2215) PREDICTED Trough: 11.91 mcg/ml PREDICTED Peak: 33.7 mcg/ml AUC 0-24 /DERICK Data: DERICK 0.5 mcg/mL: AUC/DERICK: 1022.7 DERICK 1.0 mcg/mL: AUC/DERICK: 511.4 DERICK 1.5 mcg/mL: AUC/DERICK: 340.9 RECOMMEND CHANGING VANCOMYCIN TO VANCOMYCIN 1250 MG Q12H.
--- NOTE | 2022-11-23 09:12 | PC.NURSE ---
COURTESY TECH NOTE; ROUNDED ON PT 0800, PT DENIED NEED FOR RESTROOM, DRINK, ASSISTANCE REPOSITIONING. CALL LIGHT WITHIN REACH, NO FURTHER REQUESTS AT THIS TIME Roberth BENAVIDES, LEVON
--- NOTE | 2022-11-23 10:16 | EXP.ORTH.CON ---
History of Present Illness *Admission Date: 11/19/22 *Reason for visit:: Right lower extremity infection osteomyelitis *History of present illness: 62-year-old female diabetic has had a longstanding history of issues in regards to the right lower extremity. She has had a few surgeries in regards to minor amputations. Recent surgery on Sunday for irrigation and debridement showed no evidence of yumiko pus in the foot and also infection around the peroneal tendon sheath. Suspicion for osteomyelitis of the foot is present. Orthopedics consulted for consultation for discussion of possible below-knee amputation. [facility] Disclaimer: The information contained in this section may have been updated after the patient was seen, as this information can be updated by other users. Medical History Amputee, great toe Anxiety Diabetes mellitus, type 2 Gangrene of right foot Hypertension Keratosis Surgical History Amputation of right great toe H/O section History of cholecystectomy Family History Other Diabetes Family history of hyperlipidemia Family history of hypertension Social History Smoking Status: Current every day smoker alcohol intake: never substance use type: denies use current occupational status: employed Travel in the last 8 weeks: Outside the [facility] number of children: 2 Review of Systems Constitutional Constitutional: Denies headache(s) and Reports weakness ENT Ears, Nose, Mouth, and Throat: Denies headache(s) *Musculoskeletal Musculoskeletal: Reports numbness *Neurologic Neurologic: Denies headache(s), Reports numbness and Reports weakness Meds Home Medications and Allergies Home Medications Medication Instructions Recorded Confirmed Type metformin 500 mg tablet 1,000 mg PO BID Diabetes 03/12/22 11/19/22 History paroxetine HCl 40 mg tablet (Paxil) 40 mg PO DAILY Depression 03/12/22 11/19/22 History oxycodone-acetaminophen 7.5 mg-325 1 ea PO Q6HP PRN Moderate To 03/17/22 11/19/22 Rx mg tablet Severe Pain #12 tabs New Prescriptions to Start Prescriptions: Allergies Allergy/AdvReac Type Severity Reaction Status Date / Time Sulfa (Sulfonamide Allergy Severe rash; Verified 04/13/20 13:35 Antibiotics) itchy; trouble breathing Ortho Exam (Inpt) Vital signs and Labs for Last 24 Hours: Temp Pulse Resp BP Pulse Ox 97.8 F 88 17 152/70 H 96 11/23/22 08:00 11/23/22 08:00 11/23/22 08:00 11/23/22 08:00 11/23/22 08:00 Laboratory Results - last 24 hr 11/22/22 11:09: POC Glucose 197 H 11/22/22 16:46: POC Glucose 209 H 11/22/22 17:05: Vancomycin Trough < 5.0 L 11/22/22 19:46: POC Glucose 201 H 11/22/22 22:15: Vancomycin Peak 18.0 11/23/22 05:34: POC Glucose 129 H 11/23/22 05:45: Sodium 138, Potassium 4.0, Chloride 103, Carbon Dioxide 26, Anion Gap 13.0, BUN 9, Creatinine 0.40 L, Estimated Creat Clear 60, Estimated GFR 161, Est GFR ( Amer) 194, Glucose 117 H, Calcium 8.6, Total Bilirubin 0.2, AST 32 D, ALT 27, Alkaline Phosphatase 160 H, C-Reactive Protein 310.0 H, Total Protein 6.4, Albumin 3.2 L, Globulin 3.2, Albumin/Globulin Ratio 1.0 L 11/23/22 05:45: ESR > 140 H I & O for Labs for Last 24 Hours: Intake & Output 11/20/22 11/21/22 11/22/22 11/23/22 23:59 23:59 23:59 23:59 Intake Total 1230 / 1230 100 / 100 600 / 900 660 / 660 Output Total 650 / 650 0 / 0 0 / 0 Balance 1229 / 1229 -550 / -550 600 / 900 660 / 660 Weight 148 lb 8 oz 149 lb 14.629 oz 145 lb 12.8 oz 148 lb 1 oz Microbiology Reports for the Last 24 Hours: Microbiology 11/20/22 13:25 Foot,Right - Right Bone Culture - Preliminary NO GROWTH AFTER 48 HOURS 11/20/22 13:25 Foot,Right - Right Bon
[2022-11-23 11:27] LABS: Basophils % 0.1 % (0.1-2.0); Eosinophils # 0.5 K/mm3 (0.0-0.4); Eosinophils % 3.2 % (0.1-12.0); Hematocrit 32.6 % (37.0-47.0); Lymphocytes # 1.7 K/mm3 (0.7-4.5); Lymphocytes % 11.4 % (10-50); Mean Corpuscular HGB Conc 30.8 g/dL (31.8-35.4); Mean Corpuscular Volume 90.9 fl (81-99); Mean Platelet Volume 10.3 fl (7.4-10.4); Monocytes # 0.8 K/mm3 (0.1-1.0); Monocytes % 5.7 % (1.7-9.3); Neutrophils # 11.8 K/mm3 (1.8-7.8); Neutrophils % 79.6 % (37.0-80.0); Platelet Count 448 K/mm3 (142-424); Red Blood Count 3.58 M/mm3 (4.20-5.40); White Blood Count 14.8 K/mm3 (4.8-10.8)
[2022-11-23 12:00] VITALS: BP 162/67; PULSE 85; RESP 18; TEMP 37.5; O2SAT 98
[2022-11-23 12:00] LABS: POC Glucose,Bedside 181 (70-110)
--- NOTE | 2022-11-23 12:47 | HMH.PTEV ---
Physical Therapy Evaluation Rehab PT IP Evaluation Start: 11/23/22 10:16 Freq: ONCE Status: Active Protocol: Document 11/23/22 12:37 [facility] (Rec: 11/23/22 12:47 [facility] [id number]) Subjective/History History History 62 yowf adm to [facility] with R foot osteomyelitis. She has hx of PAD, DM with neuropathy, HTN, prior R foot great toe amputation. She lives with her and she is generally independent with all mobility without AD. Currently discussions are underway with pt and family and Ortho consult was placed re: possible R BKA. Subjective Subjective Pt c/o intermittent pain in the R foot and lower leg 01/25 at this time. Rehab PT IP Eval Objective Appearance Patient Behavior Appropriate Patient Orientation Person,Place,Time Difficulty following instructions none Speech Pattern Clear Ambulation Patient Able to Ambulate No Balance Ability to Arise Able, uses arms to help Sitting Balance Steady, safe Standing Balance Steady, wide stance Dynamic Sitting Balance Ability Good Dynamic Standing Balance Ability Fair Transfers Bed Transfer Ability Contact Guard/Hand Hold Chair Transfer Ability Minimal x 1 (25% assist) Sit to Stand Bed Transfer Ability Minimal x 1 (25% assist) Sit to Stand Chair Transfer Ability Minimal x 1 (25% assist) ROM All Extremities PT ROM Status WFL Abnormal ROM Comment R ankle NT MMT All Extremities PT MMT WFL Abnormal MMT Grade R ankle NT Rehab PT IP prob,goals,plan Problems Date of Evaluation: 11/23/22 PT IP Problems Bed Mobility,Transfers,Gait Rehab Potential Rehab Potential Good Plan PT Intervention Plan Bed Mobility,Transfers,Gait, Therapeutic Exercise PT Plan Frequency Daily Duration LOS Discharge Goals Bed Transfer Ability Supervision/Stand by Sit to Stand Chair Transfer Ability Contact Guard/Hand Hold Ambulation Assistive Device Rolling Walker Ambulation Distance (feet) 10 Discharge Plan PT Discharge Plan Pt is currently appropriate to return home with family assist. If BKA is performed, re-evaluation will be
--- NOTE | 2022-11-23 13:26 | HMH.OTEV ---
OT Inpatient Evaluation Rehab OT IP Evaluation Start: 11/23/22 10:16 Freq: ONCE Status: Active Protocol: Document 11/23/22 13:22 [facility] (Rec: 11/23/22 13:25 [facility] [id number]) Rehab OT IP Assessment Subjective History 62 yowf adm to [facility] with R foot osteomyelitis. She has hx of PAD, DM with neuropathy, HTN, prior R foot great toe amputation. She lives with her and claims to be independent with all ADLs and IADLs. She reports she has been using a rolling walker recently due to continued difficulty with transfers. She no longer drives. Currently discussions are underway with pt and family and Ortho consult was placed re: possible R BKA. Subjective I cannot do any of that. Objective Patient Orientation Person,Place,Birthday Upper Extremity Gross ROM WFL Bed Mobility bed mobility-scooting,bed mobility - supine/sit,bed mobility - rolling Assist Level Supervision/Stand by Rehab OT IP prob,goals,plan Problems Date of Evaluation: 11/23/22 OT IP Problems Bed Mobility,Transfers,Balance ,Self care,Safety Rehab Potential Rehab Potential Good Equipment Needs Assistive Devices Rolling / Wheeled Walker Plan OT intervention Plan Bed Mobility,Transfers,Balance ,Self care,Safety,Therapeutic Exercise OT Plan Frequency BID Duration LOS Discharge Goals Bed Mobility Ability Standby Assistance Sit to Stand Chair Transfer Ability Minimal x 1 (25% assist) Chair Transfer Ability Minimal x 1 (25% assist) Chair Transfer Technique Sit to/from Ambulatory Chair Transfer Assistive Devices Rolling Walker Feeding Ability Assist with Tray Set Up Lower Body Dressing Ability Assistance X1 Upper Body Dressing Ability Standby Assistance Bathing Ability Assistance x1 Performing Toilet Hygiene Ability Assistance X1 Overall Commode/Toilet Transfer Ability Assistance x1 Commode/Toilet Transfer Technique Sit to/from Ambulatory Oral Care Ability Independent decrease in endurance No Discharge Plan OT Discharge Plan Pt will continue to be seen
--- NOTE | 2022-11-23 15:08 | SW/DCPLANNER ---
Addendum entered by Velvet Farooq 11/24/22 09:52: Merlyn arndt/ [facility] has reviewed patient information and stated that medication will be covered by insurance at 100% and will be delivered to patient's home this evening. Patient will receive first at home dose tomorrow morning. Sabrina arndt/ [facility] stated that information/order has been reviewed and services will start for this patient tomorrow morning. Sabrina stated that she will call and verify with [facility] that medications will be delivered tonight. The plan for this patient as of yesterday was to discharge home today w/ IV antibiotics and home health. I did explain discharge plans with patient: patient verbalized she understood and concurred with discharge plans. Original Note: Patient information/order has been faxed to [facility] for an OOP expense for IV Dapto at time of discharge. I will follow up with Merlyn at [facility] once patient information/order is reviewed. Patient information/order will also be faxed to [facility] for: PT/OT/SN/IV antibiotics. Patient is expected to discharge home tomorrow. I will continue to follow up with [facility] and [facility].
--- NOTE | 2022-11-23 15:43 | PC.NURSE ---
pt c/o a throbbing pain to rt foot t/o day. pt states today has been the worst day since surgery for pain in the foot. md notified. pt also stated she does not want to have her foot amputated at this time, stating she would rather try to save it.cb within reach. pt has no questions or concerns at this time.
[2022-11-23 15:57] VITALS: BP 122/63; PULSE 89; RESP 17; TEMP 37.5; O2SAT 94
[2022-11-23 16:52] LABS: POC Glucose,Bedside 194 (70-110)
--- NOTE | 2022-11-23 18:49 | EXP.ACUTE.PN ---
Subjective *Date: 11/23/22 *Time: 19:24 Interval history: Patient having increased intermittent pain. It surges and is sharp. Concern for pain with reperfusion to her foot. Still having little bleeding from her incision. Wound looks healthy at this time but concern for overlying skin that is nonviable. Extensive discussion today with patient and about goals of care with her foot. Discussed options of medical management with long-term antibiotics and high risk for further surgery/amputation versus BKA to definitively address the infection. Patient has been had discussion extensively, initially decided she wanted to have BKA. Informed orthopedics and podiatry, when discussed again with patient the plan for follow-up, she asked if she had gangrene . When informed that it was just an infection in the bone and potential for treatment, stated she wanted to proceed with medical management try to save the foot. At this time we will proceed with antibiotics. Tolerating p.o. intake. Glucose appears well controlled. No chest pain or shortness of breath. Medical Exam Vital signs and Labs for Last 24 Hours: Vital Signs Temp Pulse Resp BP Pulse Ox 11/23/22 15:57 99.5 F 89 17 122/63 94 L 11/23/22 12:00 99.5 F 85 18 162/67 H 98 11/23/22 08:00 97.8 F 88 17 152/70 H 96 11/23/22 04:00 98.8 F 81 18 111/46 L 96 11/23/22 00:00 99.3 F 93 H 18 145/71 H 96 11/22/22 20:00 98.6 F 87 16 119/59 L 97 Intake and Output 11/23/22 11/23/22 11/23/22 07:59 15:59 23:59 Intake Total 300 / 1260 840 / 1260 120 / 1260 Output Total 0 / 0 Balance 300 / 1260 840 / 1260 120 / 1260 Intake: Intake, Oral Amount 840 / 960 120 / 960 Intake, Total IV Amount 300 / 300 Piperacillin/Tazo 3.375 gm In 0 50 / 50 .9 % Sodium Chloride 50 ml @ 100 mls/hr IV Q8H [facility] Rx#: [id number] Vancomycin/Water For Inj (Peg) 250 / 250 1.25 gm In 250 ml @ 125 mls/hr IV Q12H [facility] Rx#:[id number] Output: Output, Urine Amount 0 / 0 Other: Number of Unmeasured Voids 1 Weight 67.16 kg 67.16 kg Patient Weight 11/23/22 23:59 Weight 67.16 kg Laboratory Results - last 24 hr 11/22/22 16:46: POC Glucose 209 H 11/22/22 19:46: POC Glucose 201 H 11/22/22 22:15: Vancomycin Peak 18.0 11/23/22 05:34: POC Glucose 129 H 11/23/22 05:45: Sodium 138, Potassium 4.0, Chloride 103, Carbon Dioxide 26, Anion Gap 13.0, BUN 9, Creatinine 0.40 L, Estimated Creat Clear 60, Estimated GFR 161, Est GFR ( Amer) 194, Glucose 117 H, Calcium 8.6, Total Bilirubin 0.2, AST 32 D, ALT 27, Alkaline Phosphatase 160 H, C-Reactive Protein 310.0 H, Total Protein 6.4, Albumin 3.2 L, Globulin 3.2, Albumin/Globulin Ratio 1.0 L 11/23/22 05:45: ESR > 140 H 11/23/22 05:45: WBC 14.8 H, RBC 3.58 L, Hgb 10.0 L, Hct 32.6 L, MCV 90.9, MCH 28.0, MCHC 30.8 L, RDW 15.0, Plt Count 448 H, MPV 10.3, Neut % (Auto) 79.6, Lymph % (Auto) 11.4, [place] % (Auto) 5.7, Eos % (Auto) 3.2, Baso % (Auto) 0.1, Neut # (Auto) 11.8 H, Lymph # (Auto) 1.7, [place] # (Auto) 0.8, Eos # (Auto) 0.5 H, Baso # (Auto) 0.0 11/23/22 11:48: POC Glucose 181 H 11/23/22 16:38: POC Glucose 194 H I & O for Labs for Last 24 Hours: Intake & Output 11/20/22 11/21/22 11/22/22 11/23/22 23:59 23:59 23:59 23:59 Intake Total 1230 / 1230 100 / 100 600 / 900 1260 / 1260 Output Total 650 / 650 0 / 0 0 / 0 Balance 1229 / 1229 -550 / -550 600 / 900 1260 / 1260 Weight 67.358 kg 68 kg 66.134 kg 67.16 kg Microbiology Reports for the Last 24 Hours: Microbiology 11/20/22 13:25 Ankle,Right - Final 11/20/22 13:25 Ankle,Right - Final 11/20/22 13:25 Ankle,Right - Final 11/20/22 13:25 Foot,Right - Right Bone Culture - Preliminary NO GROWTH AFTER 48 HOURS 11/20/22 13:25 Foot,Right - Right Bone Culture - Preliminary NO GROWTH AFTER 48 HOURS 11/20/22 13:25 Foot,Right - Right Side Bone Cul
[2022-11-23 20:00] VITALS: BP 127/69; PULSE 87; RESP 19; TEMP 37.2; O2SAT 97
[2022-11-23 20:25] LABS: POC Glucose,Bedside 243 (70-110)
[2022-11-24] VITALS: BP 115/57; PULSE 86; RESP 20; TEMP 37.3; O2SAT 96
[2022-11-24 04:00] VITALS: BP 120/58; PULSE 84; RESP 20; TEMP 37.4; O2SAT 95; BMI 27.4
[2022-11-24 05:56] LABS: POC Glucose,Bedside 267 (70-110)
[2022-11-24 06:52] LABS: Chloride 104 mmol/L (98-107); Sodium 138 mmol/L (136-145)
[2022-11-24 06:53] LABS: Potassium 3.6 mmoL/L (3.5-5.1)
[2022-11-24 06:55] LABS: Alanine Aminotransferase 24 U/L (12-78); Albumin Level 3.1 g/dl (3.5-5.0); Alkaline Phosphatase 149 U/L (38-126); Anion Gap 12.6 mEq/L (5-15); Aspartate Amino Transferase 29 U/L (14-36); Blood Urea Nitrogen 7 mg/dl (7-17); Calcium 8.5 mg/dl (8.4-10.2); Carbon Dioxide 25 mmol/L (22.0-30.0); Creatinine Clearance Estimated 61 mL/min (50-200); Estimated Glomerular Filt Rate 124 ml/min (>60); GFR (African American) 150 ML/MIN (>60); Globulin 3.2 g/dL (1.3-3.2); Glucose 136 mg/dl (74-100); Total Protein,Serum 6.3 g/dl (6.3-8.2)
[2022-11-24 06:56] LABS: Magnesium 1.4 mg/dl (1.6-2.3)
[2022-11-24 07:01] LABS: C-Reactive Protein 292.5 mg/L (0-4)
[2022-11-24 07:12] LABS: Basophils % 0.3 % (0.1-2.0); Eosinophils # 0.4 K/mm3 (0.0-0.4); Eosinophils % 3.3 % (0.1-12.0); Hematocrit 30.4 % (37.0-47.0); Hemoglobin 9.6 g/dL (12.2-16.2); Lymphocytes # 1.6 K/mm3 (0.7-4.5); Lymphocytes % 12.8 % (10-50); Mean Corpuscular HGB Conc 31.6 g/dL (31.8-35.4); Mean Corpuscular Hemoglobin 27.9 pg (27.0-31.2); Mean Corpuscular Volume 88.4 fl (81-99); Mean Platelet Volume 8.7 fl (7.4-10.4); Monocytes # 0.8 K/mm3 (0.1-1.0); Neutrophils # 9.8 K/mm3 (1.8-7.8); Neutrophils % 77.5 % (37.0-80.0); Platelet Count 495 K/mm3 (142-424); Red Blood Count 3.44 M/mm3 (4.20-5.40); Red Cell Distribution Width 14.9 % (11.5-17.5); White Blood Count 12.6 K/mm3 (4.8-10.8)
[2022-11-24 07:46] VITALS: BP 158/82; PULSE 90; RESP 18; TEMP 37.6; O2SAT 94
[2022-11-24 07:46] LABS: Erythrocyte Sedimentation Rate > 140 mm/hr (0-30)
[2022-11-24 07:48] LABS: Bilirubin,Total 0.1 mg/dl (0.2-1.3)
--- NOTE | 2022-11-24 09:06 | PC.NURSE ---
COURTESY TECH NOTE; ROUNDED ON PT 0830, PT DENIED NEED FOR ASSISTANCE WITH RESTROOM, AND REPOSITIONING. DRINK BROUGHT AT PT REQUEST. CALL LIGHT WITHIN REACH, NO FURTHER REQUESTS AT THIS TIME LEVON RODRIGUEZ
--- NOTE | 2022-11-24 09:56 | EXP.PN ---
Subjective *Date: 11/24/22 *Time: 12:45 Interval history: Exam Data for Last 24 hours Vital signs and Labs for Last 24 Hours: Temp Pulse Resp BP Pulse Ox 99.7 F H 90 18 158/82 H 94 L 11/24/22 07:46 11/24/22 07:46 11/24/22 07:46 11/24/22 07:46 11/24/22 07:46 Laboratory Results - last 24 hr 11/23/22 05:45: WBC 14.8 H, RBC 3.58 L, Hgb 10.0 L, Hct 32.6 L, MCV 90.9, MCH 28.0, MCHC 30.8 L, RDW 15.0, Plt Count 448 H, MPV 10.3, Neut % (Auto) 79.6, Lymph % (Auto) 11.4, [place] % (Auto) 5.7, Eos % (Auto) 3.2, Baso % (Auto) 0.1, Neut # (Auto) 11.8 H, Lymph # (Auto) 1.7, [place] # (Auto) 0.8, Eos # (Auto) 0.5 H, Baso # (Auto) 0.0 11/23/22 11:48: POC Glucose 181 H 11/23/22 16:38: POC Glucose 194 H 11/23/22 20:18: POC Glucose 243 H 11/24/22 05:18: POC Glucose 267 H 11/24/22 05:28: WBC 12.6 H, RBC 3.44 L, Hgb 9.6 L, Hct 30.4 L, MCV 88.4, MCH 27.9, MCHC 31.6 L, RDW 14.9, Plt Count 495 H, MPV 8.7, Neut % (Auto) 77.5, Lymph % (Auto) 12.8, [place] % (Auto) 6.0, Eos % (Auto) 3.3, Baso % (Auto) 0.3, Neut # (Auto) 9.8 H, Lymph # (Auto) 1.6, [place] # (Auto) 0.8, Eos # (Auto) 0.4, Baso # (Auto) 0.0, ESR > 140 H 11/24/22 05:28: Sodium 138, Potassium 3.6, Chloride 104, Carbon Dioxide 25, Anion Gap 12.6, BUN 7, Creatinine 0.50 L D, Estimated Creat Clear 61, Estimated GFR 124, Est GFR ( Amer) 150 D, Glucose 136 H, Calcium 8.5, Magnesium 1.4 L D, Total Bilirubin 0.1 L, AST 29, ALT 24, Alkaline Phosphatase 149 H, C-Reactive Protein 292.5 H, Total Protein 6.3, Albumin 3.1 L, Globulin 3.2, Albumin/Globulin Ratio 1.0 L I & O for Last 24 hours: Intake & Output 11/21/22 11/22/22 11/23/22 11/24/22 23:59 23:59 23:59 23:59 Intake Total 100 / 100 600 / 900 1740 / 1740 360 / 360 Output Total 650 / 650 0 / 0 Balance -550 / -550 600 / 900 1739 / 1739 358 / 358 Weight 68 kg 66.134 kg 67.16 kg 67.755 kg Microbiology Reports for the Last 24 Hours: Microbiology 11/20/22 13:25 Foot,Right - Right Side Bone Culture - Preliminary NO GROWTH AFTER 72 HOURS 11/20/22 13:25 Foot,Right - Right Bone Culture - Preliminary NO GROWTH AFTER 72 HOURS 11/20/22 13:25 Foot,Right - Right Bone Culture - Preliminary NO GROWTH AFTER 72 HOURS 11/20/22 13:25 Ankle,Right - Final 11/20/22 13:25 Ankle,Right - Final 11/20/22 13:25 Ankle,Right - Final Constitutional Constitutional: no acute distress *Routine HEENT Exam Head: Present normocephalic Eye: Present EOMI and PERRL ENT: Present mucous membranes moist *Routine Neck Exam Neck: Present supple; Absent lymphadenopathy *Routine Respiratory Exam Respiratory: Present CTA bilaterally *Routine Cardiovascular Exam Cardiovascular: Present RRR *Routine Abdominal Exam Abdominal: Present soft and normoactive bowel sounds; Absent tenderness *Routine Extremities Exam Extremities: Absent cyanosis, clubbing or edema *Routine Skin Exam Skin: Present warm; Absent rash *Routine Neurological Exam Neurological: Present alert and oriented X3 Assessment and Plan *Assessment and plan Plan Gabbie Puri is a 62 year old female with a past medical history of type 2 diabetes mellitus, hypertension and anxiety. She presented on 11/19 with increased swelling in her right foot and ankle and admitted with sepsis, possible osteomyelitis of the right foot and a closed fracture of the right second toe. She was given broad spectrum antibiotics. On 11/20 she had an ankle I&D and right foot bone biopsy x 2. Hospital course also involved percutaneous intervention of right popliteal artery with balloon angioplasty on 11/22 and she was started on aspirin 81mg dailya nd xarelto 2.5mg daily. #osteomyelitis of the R foot #type 2 diabetes mellitus, uncontrolled #PAD #hypomagnesemia Will transition to daptomycin and Levaquin to discharge home.? Will need antibiotics for at least 6 weeks. Continue aspirin and xarelto Will need f/u with card
[2022-11-24 11:10] LABS: POC Glucose,Bedside 111 (70-110)
[2022-11-24 11:46] VITALS: BP 145/69; PULSE 86; RESP 18; TEMP 37.8; O2SAT 96
--- NOTE | 2022-11-24 14:31 | PC.NURSE ---
COURTESY TECH NOTE; ROUNDED ON PT 1400, PT DENIED NEED FOR ASSISTANCE WITH RESTROOM, DRINK, AND NEED TO REPOSITION. CALL LIGHT WITHIN REACH, NO FURTHER REQUESTS AT THIS TIME Roberth BENAVIDES, LEVON
--- NOTE | 2022-11-24 14:49 | EXP.DC.SUM ---
General Admission date:: 11/19/22 Discharge date: 11/24/22 HPI HPI HPI: 62-year-old female diabetic has had a longstanding history of issues in regards to the right lower extremity. She has had a few surgeries in regards to minor amputations. Recent surgery on Sunday for irrigation and debridement showed no evidence of yumiko pus in the foot and also infection around the peroneal tendon sheath. Suspicion for osteomyelitis of the foot is present. Orthopedics consulted for consultation for discussion of possible below-knee amputation. Hospital Course Hospital Course Hospital Course: Gabbie Puri is a 62 year old female with a past medical history of type 2 diabetes mellitus, hypertension and anxiety. She presented on 11/19 with increased swelling in her right foot and ankle and? admitted with sepsis, possible osteomyelitis of the right foot and a closed fracture of the right second toe. She was given broad spectrum antibiotics. On 11/20 she had an ankle I&D and right foot bone biopsy x 2. Hospital course also involved percutaneous intervention of right popliteal artery with balloon angioplasty on 11/22 and she was started on aspirin 81mg daily and xarelto 2.5mg BID.? #osteomyelitis of the R foot #PAD #type 2 diabetes mellitus, uncontrolled IV vanc/zosyn was started on 11/19. Bone cultures were without growth after 72 hours. Orthopedic surgery recommended BKA but patient wants to defer on amputation at this time and would like to first try medical management. A PICC was placed in her right upper extremity and she will receive home health services for IV antibiotics. She will need to take levofloxacin 750mg daily and daptomycin iv 400mg daily until 12/30/22. Surveillance labs of weekly CRP and CMP will be collected and sent to her home healthy agency. She will receive PICC line care. Podiatry recommended daily packing/dressing of her wound and partial weight bearing with a short fracture boot and rolling walker. Discharge Instructions: Start taking a daily baby aspirin. Start taking Xarelto. If you are unable to purchase this medication, start Plavix instead. You will need to take 36 more days of levofloxacin, an oral antibiotic, starting tomorrow. You will need to take 36 days of an IV antibiotic, daptomycin. Take miralax twice daily until you have a bowel movement. Start Insulin detemir every night. Clean, pack and dress your wound daily as demonstrated by your nurse. Do not directly bear weight on your wound. You may partially bear weight on your right leg with a short fracture boot and a rolling walker. Follow up with your primary care provider in 1 week. Follow up with your Screw [employer] Set Up Operator in 1 week. Follow up with Cardiology in 1-2 weeks. Follow up with Orthopedic Surgery in 4-6 weeks. Exam Data for Last 24 hours Vital signs and Labs for Last 24 Hours: Temp Pulse Resp BP Pulse Ox 100.0 F H 86 18 145/69 H 96 11/24/22 11:46 11/24/22 11:46 11/24/22 11:46 11/24/22 11:46 11/24/22 11:46 Laboratory Results - last 24 hr 11/23/22 16:38: POC Glucose 194 H 11/23/22 20:18: POC Glucose 243 H 11/24/22 05:18: POC Glucose 267 H 11/24/22 05:28: WBC 12.6 H, RBC 3.44 L, Hgb 9.6 L, Hct 30.4 L, MCV 88.4, MCH 27.9, MCHC 31.6 L, RDW 14.9, Plt Count 495 H, MPV 8.7, Neut % (Auto) 77.5, Lymph % (Auto) 12.8, [place] % (Auto) 6.0, Eos % (Auto) 3.3, Baso % (Auto) 0.3, Neut # (Auto) 9.8 H, Lymph # (Auto) 1.6, [place] # (Auto) 0.8, Eos # (Auto) 0.4, Baso # (Auto) 0.0, ESR > 140 H 11/24/22 05:28: Sodium 138, Potassium 3.6, Chloride 104, Carbon Dioxide 25, Anion Gap 12.6, BUN 7, Creatinine 0.50 L D, Estimated Creat Clear 61, Estimated GFR 124, Est GFR ( Amer) 150 D, Glucose 136 H, Calcium 8.5, Magnesium 1.4 L D, Total Bilirubin 0.1 L, AST 29, ALT 24, Alkaline Phosphatase 149 H, C-Reactive Protein 292.5 H, Total Protein 6.3, Albumin 3.1 L, Globulin 3.2, Albumin/Globulin Ratio 1.0 L 11/24/22 11:02: POC Glucose 111 H I & O for Last 24 hours: Intake & Outp
[2022-11-24 15:11] VITALS: BP 134/78; PULSE 88; RESP 18; TEMP 37.6; O2SAT 97
--- NOTE | 2022-11-24 15:32 | PC.NURSE ---
dr ellison wants patient to receive vanc dose prior to leaving
[2022-11-24 18:27] LABS: POC Glucose,Bedside 152 (70-110)
--- NOTE | 2022-11-27 14:20 | CARE MANAGER ---
Attempted post-discharge phone interview, no answer. Left voicemail.
--- NOTE | 2022-11-27 14:33 | CARE MANAGER ---
Called and spoke with patient to discuss recent discharge. She states she is doing well, has been seen by HH and is getting her daily IV antibiotics.
== END 2022-11-24 17:50 | disposition home health service (06) | DRG 617 ==
LOC: ER 15:01 → 2ND 15:55
PROVIDERS: Emergency Medicine; Internal Medicine; Podiatrist; Admitting Provider Internal Medicine Adolescent Medicine; Emergency Provider Emergency Medicine; PCP Nurse Practitioner Family; Visit Provider Internal Medicine Adolescent Medicine
PROC: 0QBJ0ZX Excision of Right Fibula, Open Approach, Diagnostic (ICD-10-PCS; principal; 2022-11-20 12:15)
DX: E11.621 Type 2 diabetes mellitus with foot ulcer (principal); L02.415 Cutaneous abscess of right lower limb; L03.115 Cellulitis of right lower limb; M86.9 Osteomyelitis, unspecified; S92.901A Unspecified fracture of right foot, initial encounter for closed fracture; Z89.411 Acquired absence of right great toe; E11.628 Type 2 diabetes mellitus with other skin complications; L08.9 Local infection of the skin and subcutaneous tissue, unspecified; E11.42 Type 2 diabetes mellitus with diabetic polyneuropathy; E11.51 Type 2 diabetes mellitus with diabetic peripheral angiopathy without gangrene; F41.9 Anxiety disorder, unspecified; Z79.84 Long term (current) use of oral hypoglycemic drugs; E11.65 Type 2 diabetes mellitus with hyperglycemia; F32.A Depression, unspecified; L97.513 Non-pressure chronic ulcer of other part of right foot with necrosis of muscle; S92.911A Unspecified fracture of right toe(s), initial encounter for closed fracture; F17.200 Nicotine dependence, unspecified, uncomplicated; E11.69 Type 2 diabetes mellitus with other specified complication; I77.1 Stricture of artery
CPT/HCPCS: 20240; 20245; 28805; 36415; 36569; 37224; 71045; 73610; 73630; 73700; 80053; 80202; 82962; 83036; 83605; 83735; 84145; 84443; 85007; 85025; 85347; 85651; 86140; 87040; 87070; 87075; 87077; 87205; 87636; 88304; 93005; 93923; 97163; 97166; 97760; 99152; 99153; 99285; C1725; C1751; C1769; C9803; J1644; J2405; J2543; J3370; Q9966; U0003; U0005

== ENCOUNTER → 2022-11-30 15:51 | Outpatient (CLI) | payer BC, OTHER, SELFPAY | PROVIDERS: Visit Provider Podiatrist | DX: E11.621 Type 2 diabetes mellitus with foot ulcer (principal); L97.519 Non-pressure chronic ulcer of other part of right foot with unspecified severity; Z98.890 Other specified postprocedural states | CPT/HCPCS: 87070; 87205 ==

== ENCOUNTER 2022-12-05 15:23 | Outpatient (CLI) | payer BC, OTHER, SELFPAY | END 2022-12-05 15:38 | disposition home or self-care (01) | LOC: INF 15:24 | PROVIDERS: PCP Nurse Practitioner Family; Visit Provider Podiatrist | DX: E11.621 Type 2 diabetes mellitus with foot ulcer (principal); L97.413 Non-pressure chronic ulcer of right heel and midfoot with necrosis of muscle; L03.116 Cellulitis of left lower limb; M86.671 Other chronic osteomyelitis, right ankle and foot | CPT/HCPCS: 96523 ==

== ENCOUNTER 2022-12-19 18:58 | Emergency (ER) | payer BC, OTHER, SELFPAY ==
[2022-12-19 19:15] VITALS: BP 153/76; PULSE 95; RESP 19; TEMP 36.6; O2SAT 92; BMI 29.5
--- NOTE | 2022-12-19 19:19 | XR_ITS ---
PROCEDURE INFORMATION: Exam: XR Chest Exam date and time: 12/19/2022 7:19 PM Age: 62 years old Clinical indication: Device placement; Picc; Additional info: Picc line placement verification TECHNIQUE: Imaging protocol: Radiologic exam of the chest. Views: 1 view. COMPARISON: CR XR CHEST PORTABLE PICC PLAC 11/22/2022 9:11 AM FINDINGS: Tubes, catheters and devices: Right upper extremity PICC in good position with the tip in the superior vena cava. Lungs: Unremarkable. No consolidation. Pleural spaces: Unremarkable. No pleural effusion. No pneumothorax. Heart/Mediastinum: Unremarkable. No cardiomegaly. Bones/joints: Unremarkable. IMPRESSION: Appropriate position of right upper extremity PICC
[2022-12-19 19:30] VITALS: BP 119/71; PULSE 85; O2SAT 96
[2022-12-19 20:00] VITALS: BP 125/63; PULSE 79; O2SAT 96
--- NOTE | 2022-12-19 20:20 | PC.NURSE ---
DR. Gabriel at
--- NOTE | 2022-12-19 20:27 | PC.NURSE ---
& I with pt & her spouse to discuss care. Pt discussing the she would like her surgery moved up and her appt with Dr. Hernandes moved up. She is receiving abx through PICC line, the dressing was changed today and CXR confirmed her PICC is in correct placement. Pt's home health is to change dressing tomorrow. MD reports to keep these appts and call Dr. Hernandes tomorrow, as there is no scheduled appt in the system for her follow up. Pt reported well them let's go if you can't do the surgery . Pt spouse was educated with the material to call Dr Hernandes's office and he will call in the AM.
[2022-12-19 20:51] VITALS: BP 126/78; PULSE 85; RESP 18; TEMP 36.6; O2SAT 96
== END 2022-12-19 20:52 | disposition left against medical advice (07) ==
LOC: UTC 19:02 → ER 19:06
PROVIDERS: Emergency Provider Emergency Medicine; PCP Nurse Practitioner Family
DX: Z53.21 Procedure and treatment not carried out due to patient leaving prior to being seen by health care provider (principal)
CPT/HCPCS: 71045; 99211